=== PATIENT | male | born 1940 | race Caucasian/White ===

== ENCOUNTER 2017-01-04 11:15 | Outpatient (CLI) | payer BC | END 2017-01-04 11:16 | disposition home or self-care (01) | DX: R91.8 Other nonspecific abnormal finding of lung field (principal); J15.9 Unspecified bacterial pneumonia ==

== ENCOUNTER 2017-01-18 10:24 | Outpatient (CLI) | payer BC | END 2017-01-18 10:25 | disposition home or self-care (01) | DX: J18.9 Pneumonia, unspecified organism (principal) ==

== ENCOUNTER 2017-09-02 12:15 | Outpatient (CLI) | payer BC ==
--- NOTE | 2017-09-02 13:07 | XRAY Report ---
TWO-VIEW CHEST: 09/02/2017 CLINICAL INDICATION: Pneumonia. COMPARISON: 01/18/2017 FINDINGS: Frontal and lateral views of the chest demonstrate a normal cardiac silhouette. The lungs remain clear. No effusion or pneumothorax is present. IMPRESSION: NORMAL CHEST. JOB #: [id number] EXT JOB #:[id number]
== END 2017-09-02 12:16 | disposition home or self-care (01) ==
LOC: DI 12:15
PROVIDERS: ATTEND Family Medicine
DX: J18.9 Pneumonia, unspecified organism (principal); B96.89 Other specified bacterial agents as the cause of diseases classified elsewhere
CPT/HCPCS: 71020

== ENCOUNTER 2018-01-15 10:08 | Outpatient (CLI) | payer BC ==
[2018-01-15 17:35] LABS: HGB - HEMOGLOBIN 14.8 g/dL (14.0-18.0); MEAN CORPUSCULAR HEMOGLOBIN 31.1 pg (27.0-31.0); MEAN CORPUSCULAR HGB CONC 33.4 g/dL (32.0-36.0); MEAN CORPUSCULAR VOLUME 93.1 fL (80.0-94.0); MEAN PLATELET VOLUME 9.1 fL (7.4-11.4); RED BLOOD COUNT 4.75 10^6/uL (4.70-6.10); RED CELL DISTRIBUTION WIDTH 13.2 % (12.0-15.0)
[2018-01-15 17:57] LABS: ALBUMIN 4.1 g/dL (3.2-5.5); ALBUMIN/GLOBULIN RATIO 1.5 (1.0-2.2); ALKALINE PHOSPHATASE 65 IU/L (42-121); ALT ALANINE AMINOTRANSFERASE 20 IU/L (10-60); AST ASPARTATE AMINOTRANSFERASE 22 IU/L (10-42); BILIRUBIN,TOTAL 0.8 mg/dL (0.2-1.0); BUN - BLOOD UREA NITROGEN 26 mg/dL (6-20); CALCIUM 8.7 mg/dL (8.5-10.3); CARBON DIOXIDE - CO2 28 mmol/L (21-32); CHLORIDE 104 mmol/L (101-111); CHOL/HDL RATIO 4.9 (<5.0); CHOLESTEROL 171 mg/dL; CREATININE 0.8 mg/dL (0.6-1.2); GFR - MDRD 94 (>89); GLUCOSE 113 mg/dL (70-100); HDL CHOLESTEROL 35 mg/dL; LDL CHOLESTEROL,CALCULATED 125 mg/dL; LDL/HDL RATIO 3.6 (<3.6); SODIUM 139 mmol/L (135-145); TOTAL PROTEIN 6.9 g/dL (6.7-8.2); VLDL CHOLESTEROL 11 mg/dL
== END 2018-01-15 10:09 | disposition home or self-care (01) ==
LOC: LAB.F 10:08
PROVIDERS: ATTEND Family Medicine
DX: E78.2 Mixed hyperlipidemia (principal); I10 Essential (primary) hypertension; E03.9 Hypothyroidism, unspecified; Z79.899 Other long term (current) drug therapy
CPT/HCPCS: 36415; 80053; 80061; 83721; 84443

== ENCOUNTER 2018-07-01 13:03 | Outpatient (CLI) | payer BC ==
[2018-07-01 14:30] LABS: BASOPHILS # (AUTO) 0.1 10^3/uL (0.0-0.1); BASOPHILS % (AUTO) 0.8 %; EOSINOPHILS # (AUTO) 0.1 10^3/uL (0.0-0.7); HGB - HEMOGLOBIN 15.4 g/dL (14.0-18.0); LYMPHOCYTES # (AUTO) 1.2 10^3/uL (1.5-3.5); LYMPHOCYTES % (AUTO) 19.8 %; MEAN CORPUSCULAR HEMOGLOBIN 32.2 pg (27.0-31.0); MEAN CORPUSCULAR VOLUME 94.8 fL (80.0-94.0); MEAN PLATELET VOLUME 8.8 fL (7.4-11.4); MONOCYTES # (AUTO) 0.5 10^3/uL (0.0-1.0); MONOCYTES % (AUTO) 7.4 %; NEUTROPHILS # (AUTO) 4.4 10^3/uL (1.5-6.6); PLT - PLATELET COUNT 188 10^3/uL (130-450); RED BLOOD COUNT 4.77 10^6/uL (4.70-6.10); RED CELL DISTRIBUTION WIDTH 13.2 % (12.0-15.0); WHITE BLOOD COUNT 6.2 x10^3/uL (4.8-10.8)
[2018-07-01 14:39] LABS: CREATININE 0.8 mg/dL (0.6-1.2)
[2018-07-02 13:51] LABS: HEPATITIS C ANTIBODY NON-REACTIVE (NON-REACTIVE)
== END 2018-07-01 13:04 | disposition home or self-care (01) ==
LOC: LAB 13:03
PROVIDERS: ATTEND Physician Assistant Medical
DX: L20.84 Intrinsic (allergic) eczema (principal); Z79.899 Other long term (current) drug therapy
CPT/HCPCS: 36415; 81599; 82565; 84450; 84460; 84520; 85025; 86480; 86803

== ENCOUNTER 2018-07-16 11:33 | Outpatient (CLI) | payer BC ==
--- NOTE | 2018-07-16 17:12 | XRAY Report ---
Reason: LT ANKLE PAIN Procedure Date: 07/16/2018 Accession Number: [id number] / [id number] Procedure: XR - Ankle 3 View LT CPT Code: FULL RESULT: EXAMS: LEFT FOOT AND ANKLE RADIOGRAPHY EXAM DATE: 07/16/2018 11:55 AM. CLINICAL HISTORY: Left ankle pain. COMPARISON: Foot 3 views, left 07/16/2018 11:49 AM. TECHNIQUE: 3 views each foot and ankle. FINDINGS: Bones: Normal. No fractures or bone lesions in the foot or ankle. Joints: There are destructive changes of the distal end of the first proximal phalanx involving the first interphalangeal joint. The ankle mortise is symmetric. Soft Tissues: There is soft tissue swelling over the first interphalangeal joint. Soft tissue swelling is also seen to a lesser degree in the region of the fifth metatarsophalangeal joint, as well as the first metatarsophalangeal joint. There is also questionable periarticular lucency in the distal first metatarsal near the first metatarsophalangeal joint. IMPRESSION: Imaging findings are compatible with the suspected clinical history of gout with predominant involvement of the first interphalangeal joint of the left foot. RADIA
--- NOTE | 2018-07-16 17:13 | XRAY Report ---
Reason: LT FOOT PAIN Procedure Date: 07/16/2018 Accession Number: [id number] / [id number] Procedure: XR - Foot 3 View LT CPT Code: FULL RESULT: EXAMS: LEFT FOOT AND ANKLE RADIOGRAPHY EXAM DATE: 07/16/2018 11:55 AM. CLINICAL HISTORY: Left ankle pain. COMPARISON: Foot 3 views, left 07/16/2018 11:49 AM. TECHNIQUE: 3 views each foot and ankle. FINDINGS: Bones: Normal. No fractures or bone lesions in the foot or ankle. Joints: There are destructive changes of the distal end of the first proximal phalanx involving the first interphalangeal joint. The ankle mortise is symmetric. Soft Tissues: There is soft tissue swelling over the first interphalangeal joint. Soft tissue swelling is also seen to a lesser degree in the region of the fifth metatarsophalangeal joint, as well as the first metatarsophalangeal joint. There is also questionable periarticular lucency in the distal first metatarsal near the first metatarsophalangeal joint. IMPRESSION: Imaging findings are compatible with the suspected clinical history of gout with predominant involvement of the first interphalangeal joint of the left foot. RADIA
== END 2018-07-16 11:34 | disposition home or self-care (01) ==
LOC: DI 11:33
PROVIDERS: ATTEND Family Medicine
DX: M79.672 Pain in left foot (principal); M25.572 Pain in left ankle and joints of left foot

== ENCOUNTER 2018-08-12 11:09 | Outpatient (CLI) | payer BC ==
[2018-08-12 18:23] LABS: CHOL/HDL RATIO 5.3 (<5.0); CHOLESTEROL 127 mg/dL; HDL CHOLESTEROL 24 mg/dL; LDL CHOLESTEROL,CALCULATED 88 mg/dL; LDL/HDL RATIO 3.7 (<3.6); VLDL CHOLESTEROL 15 mg/dL
== END 2018-08-12 11:10 | disposition home or self-care (01) ==
LOC: LAB.F 11:09
PROVIDERS: ATTEND Family Medicine
DX: I10 Essential (primary) hypertension (principal); E03.9 Hypothyroidism, unspecified; Z79.899 Other long term (current) drug therapy
CPT/HCPCS: 36415; 80061; 83721

== ENCOUNTER 2018-09-01 10:05 | Observation (INO) | payer BC ==
--- NOTE | 2018-09-01 10:42 | ED Physician Documentation ---
History of Present Illness - Stated complaint Stated Complaint: DIZZY - Chief complaint Chief Complaint: Cardiac - Additonal information Additional information: hx from pt 78 m 2 wk s/p stent at [facility] also has a bad valve (he does not know more detail) on BB [facility] incline 2% today after treadmill he had mild chest discomfort soa sweats nausea and felt faint brought over to ER feels better at rest on asa plavix among others Review of Systems Constitutional: reports: Sweats. denies: Fever Cardiac: reports: Chest pain / pressure Respiratory: reports: Dyspnea GI: reports: Nausea Neurologic: reports: Generalized weakness, Near syncope Immunocompromised: denies: Immunocompromised PD PAST MEDICAL HISTORY - Past Medical History Cardiovascular: Hypertension, High cholesterol, Other Respiratory: Asthma, Sleep apnea Endocrine/Autoimmune: HyPOthyroidism GI: GERD - Past Surgical History Past Surgical History: Yes HEENT: Tonsil/Adenoidectomy - Present Medications Home Medications: Ambulatory Orders Medication Instructions Recorded Confirmed Cyclobenzaprine HCl 10 mg PO DAILY 12/18/13 12/11/14 Fluticasone Furoate [Veramyst] 10 gm NS DAILY 12/18/13 12/11/14 Furosemide [Lasix] 20 mg PO DAILY 12/18/13 12/11/14 Ipratropium [Atrovent] 0.2 mg INH ONCE 12/18/13 12/11/14 Lansoprazole 30 mg PO DAILY 12/18/13 12/11/14 Levocetirizine Dihydrochloride 5 mg PO DAILY 12/18/13 12/11/14 Levothyroxine Sodium [Synthroid] 50 mcg PO DAILY 12/18/13 12/11/14 Losartan/Hydrochlorothiazide 1 each PO DAILY 12/18/13 12/11/14 [Losartan-Hctz 50-12.5 mg Tab] Meloxicam [Mobic] 7.5 mg PO DAILY 12/18/13 12/11/14 Calcium Carbonate/Vitamin D3 1 tab PO DAILY 12/11/14 12/11/14 [Calcium 500 + D Tablet] Cholecalciferol (Vitamin D3) 2,000 mg PO DAILY 12/11/14 12/11/14 [Vitamin D] Gluc HCl/Csa/Collagen/Hyalur A 500 mg PO DAILY 12/11/14 12/11/14 [Glucosamine Chondroitin Cap] Hydrocodone/Acetaminophen 1 - 2 each PO Q6H PRN #15 tablet 12/11/14 [Hydrocodon-Acetaminophen 5-325] Losartan [Cozaar] 50 mg PO DAILY 12/11/14 12/11/14 Melatonin 3 mg PO DAILY 12/11/14 12/11/14 diphenhydrAMINE [Benadryl] 25 mg PO DAILY 12/11/14 12/11/14 - Allergies Allergies/Adverse Reactions: Allergies Allergy/AdvReac Type Severity Reaction Status Date / Time Sulfa (Sulfonamide Allergy Unknown Verified 12/18/13 10:56 Antibiotics) - Social History Does the pt smoke?: No Smoking Status: Never smoker Does the pt have substance abuse?: No - Immunizations Immunizations are current?: Yes - POLST Patient has POLST: Yes PD ED PE NORMAL - Vitals Vital signs reviewed: Yes - Neck Neck: Supple, no meningeal sign - Cardiac Cardiac: RRR - Respiratory Respiratory: No respiratory distress, Clear bilaterally - Abdomen Abdomen: Soft, Non tender - Derm Derm: Normal color - Extremities Extremities: Other (mild symm edema) Results - Vitals Vitals: Vital Signs - 24 hr 09/01/18 09/01/18 10:21 12:21 Heart Rate 44 L 47 L Respiratory 18 17 Rate Blood Pressure 115/58 L 102/54 L O2 Saturation 95 95 Oxygen O2 Source Room air - EKG (time done) 1033 Rate: Rate (enter#) (44) Rhythm: Sinus bradycardia Ischemia: T wave inversion (III AVF V6) - Labs Labs: Laboratory Tests 09/01/18 09/01/18 09/01/18 10:50 10:50 10:50 WBC 6.9 RBC 4.44 L Hgb 14.2 Hct 41.2 L MCV 92.6 MCH 32.0 H MCHC 34.6 RDW 12.8 Plt Count 168 MPV 8.8 Neut # (Auto) 5.4 Lymph # (Auto) 0.9 L [place] # (Auto) 0.5 Eos # (Auto) 0.1 Baso # (Auto) 0.0 Absolute Nucleated RBC 0.00 Nucleated RBC % 0.0 Sodium 135 Potassium 3.8 Chloride 99 L Carbon Dioxide 28 Anion Gap 8.0 BUN 25 H Creatinine 0.9 Estimated GFR (MDRD) 82 L Glucose 98 Calcium 8.5 Troponin I < 0.04 - Rads (name of study) CXR Radiology: See rad report (NACPD) PD MEDICAL DECISION MAKING - ED course ED course: exertional CP SOA diaphoresis nausea 2 wk s/p stent and also very whit on BB no block will speak to cardio at [facility] pt will need either admit or transfer d/w Dr Mendez stent was obtuse marginal 50% LAD without ischemia not stented echo showed EF 45% hypokinesia lateral wall mildly dilated aorta no valve problems inv T inf and V56 he rec admit for rate and serial enzymes stress called hospitalist at [address] in obs Departure - Departure Disposition: ED Place in Observation Clinical Impression: Near syncope, Bradycardia Chest pain Qualifiers: Chest pain type: unspecified Qualified Code(s): R07.9 - Chest pain, unspecified
[2018-09-01 11:01] LABS: BASOPHILS % (AUTO) 0.5 %; EOSINOPHILS # (AUTO) 0.1 10^3/uL (0.0-0.7); EOSINOPHILS % (AUTO) 1.8 %; HGB - HEMOGLOBIN 14.2 g/dL (14.0-18.0); LYMPHOCYTES # (AUTO) 0.9 10^3/uL (1.5-3.5); LYMPHOCYTES % (AUTO) 12.9 %; MEAN CORPUSCULAR HGB CONC 34.6 g/dL (32.0-36.0); MEAN CORPUSCULAR VOLUME 92.6 fL (80.0-94.0); MEAN PLATELET VOLUME 8.8 fL (7.4-11.4); MONOCYTES # (AUTO) 0.5 10^3/uL (0.0-1.0); NEUTROPHILS # (AUTO) 5.4 10^3/uL (1.5-6.6); NEUTROPHILS % (AUTO) 77.8 %; PLT - PLATELET COUNT 168 10^3/uL (130-450); RED BLOOD COUNT 4.44 10^6/uL (4.70-6.10); RED CELL DISTRIBUTION WIDTH 12.8 % (12.0-15.0); WHITE BLOOD COUNT 6.9 x10^3/uL (4.8-10.8)
[2018-09-01 11:08] LABS: CALCIUM 8.5 mg/dL (8.5-10.3); CREATININE 0.9 mg/dL (0.6-1.2)
--- NOTE | 2018-09-01 11:46 | XRAY Report ---
Reason: chest pain Procedure Date: 09/01/2018 Accession Number: [id number] / [id number] Procedure: XR - Chest 1 View X-Ray CPT Code: 51249 FULL RESULT: EXAM: CHEST RADIOGRAPHY EXAM DATE: 09/01/2018 10:57 AM. CLINICAL HISTORY: Chest pain. COMPARISON: 09/02/2017. TECHNIQUE: 1 view. FINDINGS: Lungs/Pleura: No focal opacities evident. No pleural effusion. No pneumothorax. Chronic elevated right hemidiaphragm. Mediastinum: Cardiomegaly, ectatic aorta Other: None. IMPRESSION: No active cardiopulmonary disease RADIA
[2018-09-01] MEDS ORDERED: MORPHINE 2 MG/ML CARPUJECT IVP PRN (12:36)
[2018-09-01] MEDS ORDERED: ONDANSETRON 4 MG/2 ML VIAL IVP PRN (12:36)
[2018-09-01] MEDS ORDERED: SODIUM CHLORIDE FLUSH 0.9% 10 ML SYRINGE IVP PRN (12:36)
[2018-09-01] MEDS ORDERED: ACETAMINOPHEN 325 MG TABLET PO PRN (12:36)
[2018-09-01] MEDS ORDERED: IPRATROPIUM 0.2 MG/ML NEB INH SCH (13:00)
[2018-09-01 13:23] LABS: ALBUMIN 3.9 g/dL (3.2-5.5); BILIRUBIN,DIRECT 0.1 mg/dL (0.1-0.5); BILIRUBIN,TOTAL 0.9 mg/dL (0.2-1.0); TOTAL PROTEIN 6.9 g/dL (6.7-8.2)
[2018-09-01] MEDS ORDERED: HYDROcod/ACETAM 5/325 MG TABLET PO PRN (13:24)
[2018-09-01] MEDS ORDERED: IPRATROPIUM 0.2 MG/ML NEB INH PRN (16:56)
[2018-09-01] MEDS ORDERED: NITROGLYCERIN SL 0.4 MG TABLET SL PRN (17:26)
[2018-09-01] MEDS ORDERED: ACETAMINOPHEN/CODEINE 300 MG/30 MG TABLET PO PRN (17:26)
--- NOTE | 2018-09-01 19:37 | HISTORY & PHYSICAL EXAMINATION ---
DATE OF SERVICE: 09/01/2018 Physician: Linda Curtis MD HISTORY OF PRESENT ILLNESS: This is a 78-year-old white male with a history of obesity, he uses 2 inhalers for "snoring at night," has a history of hypertension, valvular heart disease (details unknown), elevated cholesterol, hypothyroidism, GERD. The patient suffered an MA 3 weeks ago while he was camping and hiking, had delayed presentation for many hours until his insisted that he go to the ER, and he was taken to [facility] for an angiogram, where he stayed and had management. He was discharged on new Atorvastatin, aspirin and Plavix, and Toprol 50 mg daily. The patient had stenting of his Obtuse Marginal coronary artery, and angiography did reveal residual 50% blockage in the LAD artery. They did do FFR to determine that it did not need to be stented, as it was not a physiologically significant lesion. The patient started cardiac rehabilitation 1 week ago. He has had 4 sessions. Today while at cardiac rehabilitation, he had a resting heart rate of 43, did start exercisen and had no trouble; however, after doing one of the exercises, the cardiac rehab nurse noted that he was "pale as a ghost" and that his blood pressure had dropped, and heart rate had been 40s and only rigoberto into the 70s. He was taken to the emergency room for admission. There had been no chest pain like the time of his MA 3 weeks ago. His only symptom was nausea, and he denied shortness of breath. He has been compliant with all his medications since the MA. He has not had any syncope, but thinks there may be mild lethargy since his MA and new meds. MEDICATIONS 1. Triamcinolone cream. 2. Paton-3 soft gel. 3. Multivitamin daily. 4. Tylenol with Codeine p.r.n. 5. Sublingual nitroglycerin p.r.n. 6. Metoprolol succinate 50 mg daily. 7. Melatonin 3 mg every night. 8. Losartan/HCTZ 50/12.5 mg daily. 9. Levothyroxine 100 mcg daily. 10. Glucosamine chondroitin daily redeveloped p.r.n. 11. Veramyst nasal spray daily. 12. Baby aspirin daily. 13. Plavix 75 mg daily. 14. Lipitor 80 mg night. ALLERGIES: SULFA. FAMILY HISTORY: Noncontributory. SOCIAL HISTORY: The patient is a nonsmoker who never smoked, drinks very rare alcohol, uses no illicit drugs. REVIEW OF SYSTEMS: Comprehensive review of systems was performed and the pertinent positives are in the HPI, the rest are negative. PHYSICAL EXAMINATION GENERAL: Obese white male. He is in no distress, sitting in a chair. VITAL SIGNS: Blood pressure 102/54, pulse 47 in sinus rhythm, afebrile, room air saturation 97%. HEENT: Unremarkable. He has a long medina. NECK: Without JVD or carotid bruits. LUNGS: Clear. HEART: Heart sounds normal. No murmur. ABDOMEN: Obese. I cannot rule out organomegaly. Normal bowel sounds. No tenderness. EXTREMITIES: No edema, clubbing or cyanosis. NEUROLOGIC: Intact. LABORATORIES: Normal electrolytes, BUN 25, creatinine 0.9, magnesium 1.9. Liver tests normal. Troponin not detectable. TSH normal at 3.0. CBC unremarkable. No INR was done. No urinalysis was done. Chest x-ray: No active pulmonary disease. DIAGNOSTIC STUDIES: EKG: sinus bradycardia at a rate of 44, left IVCD, early RS transition in V2 consistent with a posterior MA, and inverted T-wave in V6 only. There is no old EKG for comparison. IMPRESSION/DIAGNOSIS: 1. Bradycardia and abnormal blood pressure response to exercise during cardiac rehabilitation - this could be a coronary ischemia equivalent or due to his B=damion dose. 2. Coronary artery disease. 3. Recent myocardial infarction with stenting. 4. History of hypertension. 5. History of elevated cholesterol. 6. Hypothyroidism. 7. Obesity. PLAN: Place the patient in Observation status on telemetry. Stop his metoprolol to allow the heart rate to increase slowly and metoprolol to wash out. Continue with his aspirin, Plavix, Lipitor (new medications post-MA), continue with blood pressure control, but hold the meds for blood pressures that are near 100, as the Losartan/HCTZ combination pill is causing mild prerenal azotemia. Cycle troponins x3. Proceed to a stress test off beta damion or on a lower dose, to determine proper beta damion dose. The emergency room physician had reached out to this patient's [employer], got the covering doctor today, who reviewed with our ER doctor what the angiogram results were and advised place in Observation status with troponin checks and proceeding to a stress test. The patient and were told of the plan of his [employer]'s partner, and he is agreeable. CODE STATUS: FULL CODE. DEEP VENOUS THROMBOSIS PROPHYLAXIS: SCDs. ATTESTATION: The patient is expected to be discharged or transferred to another facility within 96 hours: Yes. TD: 09/01/2018 19:10 [facility]
[2018-09-01] MEDS: SODIUM CHLORIDE FLUSH 0.9% 10 ML SYRINGE IVP SCH ×2 (20:06→23:45)
[2018-09-01] MEDS: ATORVASTATIN 40 MG TABLET PO SCH (20:06)
[2018-09-01] MEDS: GABAPENTIN 300 MG CAPSULE PO SCH (20:07)
[2018-09-01] MEDS: FAMOTIDINE 20 MG TABLET PO SCH (20:07)
[2018-09-01] MEDS ORDERED: MELATONIN 3 MG PO PRN (21:00)
[2018-09-02 06:03] LABS: BUN - BLOOD UREA NITROGEN 20 mg/dL (6-20); CALCIUM 8.8 mg/dL (8.5-10.3); CARBON DIOXIDE - CO2 30 mmol/L (21-32); CHLORIDE 102 mmol/L (101-111); CHOL/HDL RATIO 3.3 (<5.0); CHOLESTEROL 100 mg/dL; GFR - MDRD 73 (>89); GLUCOSE 99 mg/dL (70-100); HDL CHOLESTEROL 30 mg/dL; LDL CHOLESTEROL,CALCULATED 56 mg/dL; LDL/HDL RATIO 1.9 (<3.6); SODIUM 137 mmol/L (135-145); VLDL CHOLESTEROL 14 mg/dL
[2018-09-02] MEDS: PANTOPRAZOLE 40 MG TABLET PO SCH (06:03)
[2018-09-02] MEDS: ENOXAPARIN 40 MG/0.4 ML SYRINGE SUBQ SCH (08:21)
[2018-09-02] MEDS: FLUTICASONE NASAL SPRAY NAS SCH (08:21)
[2018-09-02] MEDS: LOSARTAN 50 MG TABLET PO SCH (08:22)
[2018-09-02] MEDS: CYCLOBENZAPRINE 10 MG TABLET PO SCH (08:22)
[2018-09-02] MEDS: GABAPENTIN 300 MG CAPSULE PO SCH ×5 (08:22→20:37)
[2018-09-02] MEDS: ASPIRIN EC 81 MG TABLET PO SCH (08:22)
[2018-09-02] MEDS: POLYETHYLENE GLYCOL 3350 17 GM PACKET PO SCH (08:23)
[2018-09-02] MEDS: FUROSEMIDE 20 MG TABLET PO SCH (08:23)
[2018-09-02] MEDS: LEVOTHYROXINE 100 MCG TABLET PO SCH (08:23)
[2018-09-02] MEDS: CETIRIZINE 10 MG TABLET PO SCH (08:23)
[2018-09-02] MEDS: CLOPIDOGREL 75 MG TABLET PO SCH (08:23)
[2018-09-02] MEDS: FAMOTIDINE 20 MG TABLET PO SCH ×2 (08:23→20:37)
[2018-09-02] MEDS: SODIUM CHLORIDE FLUSH 0.9% 10 ML SYRINGE IVP SCH ×2 (08:23→17:50)
--- NOTE | 2018-09-02 14:11 | Nuclear Medicine Report ---
Reason: CAD, Whit at Rehab Procedure Date: 09/02/2018 Accession Number: [id number] / [id number] Procedure: NM - Myocardial Perfusion STR/RST CPT Code: FULL RESULT: EXAM: SINGLE-ISOTOPE EXERCISE STRESS TEST. SINGLE-ISOTOPE AND ONE-DAY REST/STRESS MYOCARDIAL PERFUSION SCANS WITH TOMOGRAPHIC IMAGING, QUANTITATIVE ANALYSIS, WALL MOTION ANALYSIS AND CALCULATION OF EJECTION FRACTION. EXAM DATE: 09/02/2018 01:27 PM. CLINICAL HISTORY: CAD, whit at rehab. COMPARISON: None. TECHNIQUE: A rest myocardial perfusion scan was done with tomography after the intravenous administration of 10.7 mCi Tc-99m sestamibi. After an appropriate delay, a treadmill exercise stress was performed according to department protocol. The patient exercised for 8 minutes and 31 seconds. The maximum heart rate was 110 bpm, which was 76% of the maximum predicted heart rate of 144 bpm. At approximately peak heart rate, 42 mCi of Tc-99m sestamibi was injected for stress myocardial perfusion scan. Motion correction was applied when appropriate. Gated tomographic images were obtained for wall motion analysis and computation of left ventricular ejection fraction. FINDINGS: There is a large, severe perfusion defect involving the lateral segment from apex to base, which is only partially reversible. The findings are suggestive of a lateral wall infarct with reversible ischemia of the residual tissue. There is moderate cardiac chamber enlargement which does not alter with exercise. No other convincing perfusion abnormalities. No convincing evidence of transient ischemic dilatation. There is normal cardiac wall motion. Cardiac ejection fraction is 63%. IMPRESSION: 1. 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 2. Normal left ventricular ejection fraction of 63%. 3. Normal segmental and global wall motion. 4. Moderate cardiac chamber enlargement that does not vary with stress. MARIA ANTONIA The call report notification system was initiated by Dr. Abdiaziz Velez at 14:06 hrs on 09/02/18. The above findings were discussed with Dr. Schmidt by Dr. Abdiaziz Velez at 14:09 hrs on 09/02/18.
--- NOTE | 2018-09-02 14:25 | PROCEDURE REPORT ---
Hospitalist Procedure Note - Procedure Note Procedure Note: Patient underwent a treadmill cardiac stress test Patient was previously on a beta-damion and resting heart rate was 50. The patient was able to get to a maximum heart rate of 98 at which point he could no longer tolerate the treadmill. He did not reach the desired maximum heart rate. During the stress test the patient had no ST changes. The patient did have frequent PVCs but no other abnormalities were noted. The patient had no chest pain or other symptoms during the stress test. Overall this was a negative study and we will be awaiting the results of the nuclear stress test to confirm.
--- NOTE | 2018-09-02 15:26 | PROVIDER PROGRESS NOTE ---
Assessment/Plan - Problem List (1) Bradycardia Assessment/Plan: Patient presented to the emergency department after having hypotension, bradycardia with near syncope while doing cardiac rehab. The patient was placed in observation for serial troponins. Patient's metoprolol was held and patient placed on telemetry for monitoring of bradycardia. Patient's troponins are negative Patient underwent treadmill stress test with which patient did not have any acute changes in EKG. 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 I spoke with cardiology at [facility] in [place] Dr. Pena and he stated that these changes are expected with a stress test and that there was no need to perform the stress test at this time. Dr. Pena recommended monitoring the patient for 1 more night on telemetry. He recommended holding the patient's metoprolol and hydrochlorothiazide which have already been held. He states that the patient does not need to be discharged on metoprolol. He would recommend discharging the patient on aspirin, Plavix and Cozaar. He states as long as the patient does not have any arrhythmia or further symptoms he may be discharged tomorrow morning. (2) History of coronary artery disease Assessment/Plan: Patient has a history of [place] 3 weeks ago and underwent coronary artery stenting of the obtuse marginal artery. Patient also had 50% stenosis of his LAD. Patient underwent serial troponins, telemetry monitoring and stress test overnight in observation. Patient continues to be bradycardic, troponins were negative and stress test showed changes consistent with recent [place]. Plan: Continue aspirin, Plavix and losartan. Hold metoprolol and hydrochlorothiazide. (3) Hypertension Qualifiers: Hypertension type: essential hypertension Qualified Code(s): I10 - Essential (primary) hypertension Assessment/Plan: The patient was hypotensive prior to presentation while exercising. This is likely secondary to overmedication with hydrochlorothiazide metoprolol and losartan. The patient's hydrochlorothiazide and metoprolol have been held. Patient's blood pressure is in the normal range. We will continue the patient's losartan and monitor blood pressure while he is hospitalized. (4) Hypothyroidism Qualifiers: Hypothyroidism type: unspecified Qualified Code(s): E03.9 - Hypothyroidism, unspecified Assessment/Plan: Patient has a history of hypothyroidism we will continue the patient's Synthroid while the patient is hospitalized. - Current Meds Current Meds: Current Medications Generic Name Dose Route Start Last Admin Trade Name Jayden PRN Reason Stop Dose Admin Aspirin 81 mg 09/02/18 09:00 09/02/18 08:22 Ecotrin PO 81 mg DAILY MIGUEL Administration Atorvastatin Calcium 80 mg 09/01/18 21:00 09/01/18 20:06 Lipitor PO 80 mg QPM MIGUEL Administration Cetirizine HCl 10 mg 09/02/18 09:00 09/02/18 08:23 Zyrtec PO 10 mg DAILY MIGUEL Administration Clopidogrel Bisulfate 75 mg 09/02/18 09:00 09/02/18 08:23 Plavix PO 75 mg DAILY MIGUEL Administration Cyclobenzaprine HCl 10 mg 09/02/18 09:00 09/02/18 08:22 Flexeril PO 10 mg DAILY MIGUEL Administration Enoxaparin Sodium 40 mg 09/02/18 09:00 09/02/18 08:21 Lovenox SUBQ 40 mg DAILY MIGUEL Administration Famotidine 20 mg 09/01/18 21:00 09/02/18 08:23 Pepcid PO 20 mg BID MIGUEL Administration Fluticasone Propionate 1 sprays 09/02/18 09:00 09/02/18 08:21 Flonase ALINE 1 spray DAILY MIGUEL Administration Furosemide 20 mg 09/02/18 09:00 09/02/18 08:23 Lasix PO 20 mg DAILY MIGUEL Administration Gabapentin 300 mg 09/01/18 21:00 09/02/18 14:10 Neurontin PO 300 mg QID MIGUEL Administration Levothyroxine Sodium 50 mcg 09/02/18 09:00 09/02/18 08:23 Synthroid PO 50 mcg DAILY MIGUEL Administration Losartan Potassium 50 mg 09/02/18 09:00 09/02/18 08:22 Cozaar PO 50 mg DAILY MIGUEL Administration Pantoprazole Sodium 40 mg 09/02/18 07:00 09/02/18 06:03 Protonix PO 40 mg QDAC MIGUEL Administration Polyethylene Glycol 17 gm 09/02/18 09:00 09/02/18 08:23 Miralax PO 17 gm DAILY MIGUEL Administration Sodium Chloride 10 ml 09/01/18 17:00 09/02/18 08:23 Normal Saline Flush 0.9% IVP 10 ml 0100,0900,1700 MIGUEL Administration - Lab Result Lab results reviewed: Yes Fish Bone Diagrams: 09/01/18 10:50 09/02/18 05:25 Other Lab Results: Laboratory Results WBC 6.9 x10^3/uL (4.8-10.8) 09/01/18 10:50 RBC 4.44 10^6/uL (4.70-6.10) L 09/01/18 10:50 Hgb 14.2 g/dL (14.0-18.0) 09/01/18 10:50 Hct 41.2 % (42.0-52.0) L 09/01/18 10:50 MCV 92.6 fL (80.0-94.0) 09/01/18 10:50 MCH 32.0 pg (27.0-31.0) H 09/01/18 10:50 MCHC 34.6 g/dL (32.0-36.0) 09/01/18 10:50 RDW 12.8 % (12.0-15.0) 09/01/18 10:50 Plt Count 168 10^3/uL (130-450) 09/01/18 10:50 MPV 8.8 fL (7.4-11.4) 09/01/18 10:50 Neut # (Auto) 5.4 10^3/uL (1.5-6.6) 09/01/18 10:50 Lymph # (Auto) 0.9 10^3/uL (1.5-3.5) L 09/01/18 10:50 [place]ayer # (Auto) 0.5 10^3/uL (0.0-1.0) 09/01/18 10:50 Eos # (Auto) 0.1 10^3/uL (0.0-0.7) 09/01/18 10:50 Baso # (Auto) 0.0 10^3/uL (0.0-0.1) 09/01/18 10:50 Absolute Nucleated RBC 0.00 x10^3/uL 09/01/18 10:50 Nucleated RBC % 0.0 /100WBC 09/01/18 10:50 Sodium 137 mmol/L (135-145) 09/02/18 05:25 Potassium 3.7 mmol/L (3.5-5.0) 09/02/18 05:25 Chloride 102 mmol/L (101-111) 09/02/18 05:25 Carbon Dioxide 30 mmol/L (21-32) 09/02/18 05:25 Anion Gap 5.0 (6-13) L 09/02/18 05:25 BUN 20 mg/dL (6-20) 09/02/18 05:25 Creatinine 1.0 mg/dL (0.6-1.2) 09/02/18 05:25 Estimated GFR (MDRD) 73 (>89) L 09/02/18 05:25 Glucose 99 mg/dL (70-100) 09/02/18 05:25 Calcium 8.8 mg/dL (8.5-10.3) 09/02/18 05:25 Magnesium 1.9 mg/dL (1.7-2.8) 09/01/18 10:50 Total Bilirubin 0.9 mg/dL (0.2-1.0) 09/01/18 10:50 Direct Bilirubin 0.1 mg/dL (0.1-0.5) 09/01/18 10:50 AST 27 IU/L (10-42) 09/01/18 10:50 ALT 23 IU/L (10-60) 09/01/18 10:50 Alkaline Phosphatase 71 IU/L (42-121) 09/01/18 10:50 Troponin I < 0.04 ng/mL (<0.49) 09/01/18 23:11 Total Protein 6.9 g/dL (6.7-8.2) 09/01/18 10:50 Albumin 3.9 g/dL (3.2-5.5) 09/01/18 10:50 Globulin 3.0 g/dL (2.1-4.2) 09/01/18 10:50 Triglycerides 69 mg/dL (-149) 09/02/18 05:25 Cholesterol 100 mg/dL (-199) 09/02/18 05:25 LDL Cholesterol, Calc 56 mg/dL (-129) 09/02/18 05:25 VLDL Cholesterol 14 mg/dL 09/02/18 05:25 HDL Cholesterol 30 mg/dL (60-) L 09/02/18 05:25 LDL/HDL Ratio 1.9 (<3.6) 09/02/18 05:25 Cholesterol/HDL Ratio 3.3 (<5.0) 09/02/18 05:25 TSH 3.01 uIU/mL (0.34-5.60) 09/01/18 10:50 - EKG Results EKG Interpreted Independently: Yes - Diagnostic Imaging Results Diagnostic Imaging Results: Final report reviewed - Additional Planning Condition/Complexity: Guarded My Orders: My Active Orders 09/02/18 09:00 Fluticasone [Flonase] 1 sprays ALINE DAILY 09/02/18 Dinner Cardiac Diet [DIET] Consult/Specialty: Cardiology Plan Discussed with:: Patient Time Spent: 31-60 minutes Subjective - Subjective Patient Reports: Feeling Better, No Complaints Nursing Reports: No Complaints Objective Vital Signs: Vital Signs - 24 hr 09/01/18 09/01/18 09/01/18 15:39 16:44 19:48 Temperature 36.4 C L 36.4 C L 36.6 C Heart Rate 43 L Heart Rate [ 43 L 46 L Brachial] Respiratory 18 18 18 Rate Blood Pressure 118/61 [Left Brachial artery] Blood Pressure 134/66 H [Right Brachial artery] O2 Saturation 94 94 93 09/02/18 09/02/18 09/02/18 00:06 05:00 07:58 Temperature 36.4 C L 36.5 C 36.9 C Heart Rate Heart Rate [ 50 L 48 L 49 L Brachial] Respiratory 16 20 16 Rate Blood Pressure 125/61 [Left Brachial artery] Blood Pressure 126/63 128/80 [Right Brachial artery] O2 Saturation 92 98 09/02/18 13:00 Temperature 36.8 C Heart Rate Heart Rate [ 55 L Brachial] Respiratory 16 Rate Blood Pressure [Left Brachial artery] Blood Pressure 108/56 L [Right Brachial artery] O2 Saturation 93 Oxygen O2 Source Room air I&O (Last 24 Hrs): Intake and Output Totals x24h 08/31/18 09/01/18 09/02/18 23:59 23:59 23:59 Intake Total 980 600 Balance 980 600 General: Alert, Oriented x3, Cooperative, No acute distress HEENT: Atraumatic, PERRLA, EOMI, Mucous membr. moist/pink Neck: Supple, No JVD, No thyromegaly, +2 carotid pulse wo bruit, No LAD Lymphatic: no adenopathy Neuro: Alert, Non Focal, CN 2-12 Grossly Intact, Oriented Times 3 Cardiovascular: Regular rate, Normal S1, Normal S2, No murmurs Respiratory: Chest non-tender, No respiratory distress, Breath sounds nml Abdomen: Normal bowel sounds, Soft, No tenderness, No hepatospenomegaly Extremities: No clubbing, No cyanosis, No edema, Normal pulses Skin: No rashes, No breakdown - Results Results: Laboratory Results WBC 6.9 x10^3/uL (4.8-10.8) 09/01/18 10:50 RBC 4.44 10^6/uL (4.70-6.10) L 09/01/18 10:50 Hgb 14.2 g/dL (14.0-18.0) 09/01/18 10:50 Hct 41.2 % (42.0-52.0) L 09/01/18 10:50 MCV 92.6 fL (80.0-94.0) 09/01/18 10:50 MCH 32.0 pg (27.0-31.0) H 09/01/18 10:50 MCHC 34.6 g/dL (32.0-36.0) 09/01/18 10:50 RDW 12.8 % (12.0-15.0) 09/01/18 10:50 Plt Count 168 10^3/uL (130-450) 09/01/18 10:50 MPV 8.8 fL (7.4-11.4) 09/01/18 10:50 Neut # (Auto) 5.4 10^3/uL (1.5-6.6) 09/01/18 10:50 Lymph # (Auto) 0.9 10^3/uL (1.5-3.5) L 09/01/18 10:50 Thayer # (Auto) 0.5 10^3/uL (0.0-1.0) 09/01/18 10:50 Eos # (Auto) 0.1 10^3/uL (0.0-0.7) 09/01/18 10:50 Baso # (Auto) 0.0 10^3/uL (0.0-0.1) 09/01/18 10:50 Absolute Nucleated RBC 0.00 x10^3/uL 09/01/18 10:50 Nucleated RBC % 0.0 /100WBC 09/01/18 10:50 Sodium 137 mmol/L (135-145) 09/02/18 05:25 Potassium 3.7 mmol/L (3.5-5.0) 09/02/18 05:25 Chloride 102 mmol/L (101-111) 09/02/18 05:25 Carbon Dioxide 30 mmol/L (21-32) 09/02/18 05:25 Anion Gap 5.0 (6-13) L 09/02/18 05:25 BUN 20 mg/dL (6-20) 09/02/18 05:25 Creatinine 1.0 mg/dL (0.6-1.2) 09/02/18 05:25 Estimated GFR (MDRD) 73 (>89) L 09/02/18 05:25 Glucose 99 mg/dL (70-100) 09/02/18 05:25 Calcium 8.8 mg/dL (8.5-10.3) 09/02/18 05:25 Magnesium 1.9 mg/dL (1.7-2.8) 09/01/18 10:50 Total Bilirubin 0.9 mg/dL (0.2-1.0) 09/01/18 10:50 Direct Bilirubin 0.1 mg/dL (0.1-0.5) 09/01/18 10:50 AST 27 IU/L (10-42) 09/01/18 10:50 ALT 23 IU/L (10-60) 09/01/18 10:50 Alkaline Phosphatase 71 IU/L (42-121) 09/01/18 10:50 Troponin I < 0.04 ng/mL (<0.49) 09/01/18 23:11 Total Protein 6.9 g/dL (6.7-8.2) 09/01/18 10:50 Albumin 3.9 g/dL (3.2-5.5) 09/01/18 10:50 Globulin 3.0 g/dL (2.1-4.2) 09/01/18 10:50 Triglycerides 69 mg/dL (-149) 09/02/18 05:25 Cholesterol 100 mg/dL (-199) 09/02/18 05:25 LDL Cholesterol, Calc 56 mg/dL (-129) 09/02/18 05:25 VLDL Cholesterol 14 mg/dL 09/02/18 05:25 HDL Cholesterol 30 mg/dL (60-) L 09/02/18 05:25 LDL/HDL Ratio 1.9 (<3.6) 09/02/18 05:25 Cholesterol/HDL Ratio 3.3 (<5.0) 09/02/18 05:25 TSH 3.01 uIU/mL (0.34-5.60) 09/01/18 10:50 ABX Reporting Has patient been on IV antibiotics over the past 48 hours?: No Current Medications - Current Medications Current Medications: Active Medications Acetaminophen (Tylenol) 650 mg PO Q4HR PRN PRN Reason: Pain 1 to 4 Acetaminophen/Codeine Phosphate (Tylenol #3) 1 tab PO Q6H PRN PRN Reason: PAIN Hydrocodone Bitart/Acetaminophen ([place] 5/325) 1 tab PO Q6H PRN PRN Reason: PAIN Aspirin (Ecotrin) 81 mg PO DAILY [facility] Last Admin: 09/02/18 08:22 Dose: 81 mg Atorvastatin Calcium (Lipitor) 80 mg PO QPM [facility] Last Admin: 09/01/18 20:06 Dose: 80 mg Cetirizine HCl (Zyrtec) 10 mg PO DAILY [facility] Last Admin: 09/02/18 08:23 Dose: 10 mg Clopidogrel Bisulfate (Plavix) 75 mg PO DAILY [facility] Last Admin: 09/02/18 08:23 Dose: 75 mg Cyclobenzaprine HCl (Flexeril) 10 mg PO DAILY [facility] Last Admin: 09/02/18 08:22 Dose: 10 mg Enoxaparin Sodium (Lovenox) 40 mg SUBQ DAILY [facility] Last Admin: 09/02/18 08:21 Dose: 40 mg Famotidine (Pepcid) 20 mg PO BID [facility] Last Admin: 09/02/18 08:23 Dose: 20 mg Fluticasone Propionate (Flonase) 1 sprays ALINE DAILY [facility] Last Admin: 09/02/18 08:21 Dose: 1 spray Furosemide (Lasix) 20 mg PO DAILY [facility] Last Admin: 09/02/18 08:23 Dose: 20 mg Gabapentin (Neurontin) 300 mg PO QID [facility] Last Admin: 09/02/18 14:10 Dose: 300 mg Ipratropium [place] (Atrovent) 0.5 mg INH RTQ6H PRN PRN Reason: Snoring or SOA Levothyroxine Sodium (Synthroid) 50 mcg PO DAILY [facility] Last Admin: 09/02/18 08:23 Dose: 50 mcg Losartan Potassium (Cozaar) 50 mg PO DAILY [facility] Last Admin: 09/02/18 08:22 Dose: 50 mg Morphine Sulfate (Morphine (Carpuject)) 2 mg IVP Q2HR PRN PRN Reason: Dyspnea Nitroglycerin (Nitrostat) 0.4 mg SL DAILY PRN PRN Reason: Angina Ondansetron HCl (Zofran Inj) 4 mg IVP Q6HR PRN PRN Reason: Nausea / Vomiting Pantoprazole Sodium (Protonix) 40 mg PO QDAC [facility] Last Admin: 09/02/18 06:03 Dose: 40 mg Non Formulary Med ( Melatonin [Melatonin ] 3 Mg) Tab 1 each PO QPM PRN PRN Reason: Insomnia Polyethylene Glycol (Miralax) 17 gm PO DAILY [facility] Last Admin: 09/02/18 08:23 Dose: 17 gm Sodium Chloride (Normal Saline Flush 0.9%) 10 ml IVP PRN PRN PRN Reason: NEEDED PER PROVIDER ORDERS Sodium Chloride (Normal Saline Flush 0.9%) 10 ml IVP 0100,0900,1700 [facility] Last Admin: 09/02/18 08:23 Dose: 10 ml Fluticasone Furoate [Veramyst] 1 spr NS DAILY 12/18/13 Lansoprazole 30 mg PO DAILY 12/18/13 Levothyroxine Sodium [Synthroid] 100 mcg PO DAILY 12/18/13 Losartan/Hydrochlorothiazide [Losartan-Hctz 50-12.5 mg Tab] 1 each PO DAILY 12/18/13 Calcium Carbonate/Vitamin D3 [Calcium 500 + D Tablet] 1 tab PO DAILY 12/11/14 Cholecalciferol (Vitamin D3) [Vitamin D] 2,000 mg PO DAILY 12/11/14 Gluc HCl/Csa/Collagen/Hyalur A [Glucosamine Chondroitin Cap] 500 mg PO DAILY 12/11/14 Melatonin 3 mg PO QPM 12/11/14 Acetaminophen/Cod 300/30 [Tylenol #3] 1 each PO Q4-6H PRN 09/01/18 Ascorbic Acid 500 mg PO DAILY 09/01/18 Aspirin [Aspirin EC] 81 mg PO DAILY 09/01/18 Atorvastatin Calcium 80 mg PO QPM 09/01/18 Clopidogrel Bisulfate [Clopidogrel] 75 mg PO DAILY 09/01/18 Fluticasone/Vilanterol [Breo Ellipta 100-25 Mcg INH] 1 each IH DAILY 09/01/18 Gabapentin 300 mg PO QID 09/01/18 Metoprolol Succinate 50 mg PO DAILY 09/01/18 Multivitamin [Multiple Vitamins] 1 each PO DAILY 09/01/18 Nitroglycerin 0.4 mg SL DAILY PRN 09/01/18 [place]-3/Dha/Epa/Fish Oil [[place] 3 500 Softgel] 1 each PO DAILY 09/01/18 Triamcinolone 0.1% Cream [Kenalog 0.1% Cream] 1 applic TOP BID 09/01/18 Urea 1 applic TP DAILY PRN 09/01/18 guaiFENesin [Mucinex] 600 mg PO DAILY 09/02/18
[2018-09-02] MEDS ORDERED: diphenhydrAMINE 25 MG CAPSULE PO PRN (18:19)
[2018-09-02] MEDS: ATORVASTATIN 40 MG TABLET PO SCH (20:37)
[2018-09-03] MEDS: SODIUM CHLORIDE FLUSH 0.9% 10 ML SYRINGE IVP SCH ×2 (00:32→08:31)
[2018-09-03] MEDS: PANTOPRAZOLE 40 MG TABLET PO SCH (06:12)
[2018-09-03 08:23] VITALS: BP 128/79
[2018-09-03] MEDS: LOSARTAN 50 MG TABLET PO SCH (08:28)
[2018-09-03] MEDS: CETIRIZINE 10 MG TABLET PO SCH (08:28)
[2018-09-03] MEDS: LEVOTHYROXINE 100 MCG TABLET PO SCH (08:28)
[2018-09-03] MEDS: FAMOTIDINE 20 MG TABLET PO SCH (08:28)
[2018-09-03] MEDS: CLOPIDOGREL 75 MG TABLET PO SCH (08:29)
[2018-09-03] MEDS: FUROSEMIDE 20 MG TABLET PO SCH (08:29)
[2018-09-03] MEDS: POLYETHYLENE GLYCOL 3350 17 GM PACKET PO SCH (08:29)
[2018-09-03] MEDS: GABAPENTIN 300 MG CAPSULE PO SCH (08:29)
[2018-09-03] MEDS: ASPIRIN EC 81 MG TABLET PO SCH (08:29)
[2018-09-03] MEDS: CYCLOBENZAPRINE 10 MG TABLET PO SCH (08:29)
[2018-09-03] MEDS: ENOXAPARIN 40 MG/0.4 ML SYRINGE SUBQ SCH (08:30)
[2018-09-03] MEDS: FLUTICASONE NASAL SPRAY NAS SCH (08:31)
--- NOTE | 2018-09-03 09:17 | Discharge Plan ---
Discharge Plan Disposition: 01 Home, Self Care Condition: Fair Prescriptions: Losartan [Cozaar] 50 mg PO DAILY #90 tablet Diet: Cardiac Activity Restrictions: Resume normal exercise on Saturday Shower Restrictions: No Driving Restrictions: No Weight Bearing: Full Weight Additional Instructions or Follow Up instructions: You presented to our emergency department after your heart rate became low and blood pressure dropped while exercising in cardiac rehab. Given that you just had had a heart attack 3 weeks ago we took extra precaution and watched you over 2 days. We held your blood pressure medications metoprolol and hydrochlorothiazide. Your heart rate has now improved up to the 60s and blood pressures remain stable. You underwent testing of your heart with serial cardiac enzymes which were all normal. You also had a stress test which did not reveal any new changes. We spoke with the fur sorter on-call at [facility] in [place] and he asked that you stop taking metoprolol and hydrochlorothiazide. I have given you a prescription for losartan which you will take daily along with your previous medications including aspirin, Plavix and Lipitor. You will follow-up with your fur sorter in 2 weeks as you have been previously scheduled to do. He will be okay to resume cardiac rehab on Saturday. Follow-Up Care: [facility] - Cardiac No Smoking: If you smoke, Please STOP! Call for help. Follow-up with: HE WHITE [Primary Care Provider] -
--- NOTE | 2018-09-03 09:26 | DISCHARGE SUMMARY ---
"Discharge Summary Admit Date: 09/01/18 Discharge Date: 09/03/18 Discharging Provider: Dennis Schmidt MD Primary Care Provider: Ronny Romo MD Code Status: Attempt Resuscitation Condition at Discharge: Fair Discharge Disposition: 01 Home, Self Care - DIAGNOSES Admission Diagnoses: 1. Bradycardia 2. Hypotension 3. Coronary artery disease 4. Recent myocardial infarction with stenting 5. History of hypertension 6. History of elevated cholesterol 7. Hypothyroidism 8. Obesity Discharge Diagnoses with Status of Each Condition: 1. Bradycardia: Improved 2. Hypotension: Resolved 3. History of coronary artery disease: Stable 4. Hypertension: Stable 5. Hyperlipidemia: Stable 6. Hypothyroidism: Stable - HPI History of Present Illness: Patient is a 78-year-old white male with a history of obesity, uses 2 inhalers for snoring at night, has history of hypertension, valvular heart disease, elevated cholesterol, hypothyroidism and GERD. The patient suffered an LA 3 weeks ago while he was camping and hiking, had delayed presentation for many hours until his insisted that he go to the emergency department. He was taken to [facility] for an angiogram, where he stayed and had management. He was discharged on new atorvastatin, aspirin and Plavix, and meto prolol 50 mg daily. The patient had stenting of his obtuse marginal coronary artery and angiogram did reveal residual 50% blockage in the LAD artery. They did do FFR to determine that it did not need to be further stented, as it was not physiologically significant lesion. The patient started cardiac rehabilitation 1 week ago. He had 4 sessions. Today while at cardiac rehabilitation, he had resting heart rate of 43, did start exercising and had no trouble; however after doing one of the exercises, the cardiac rehab nurse noted that he was pale as a ghost and that his blood pressure had dropped and heart rate had been in the 40s and only rigoberto into the 70s. He was taken to the emergency room for admission. There he had no chest pain similar to when he had an LA 3 weeks ago. His only symptom was nausea and he denied shortness of breath. He has been compliant with all his medications since his LA. He had no syncope but thinks there may be mild lethargy since his LA and new meds. - CONSULTS | PROCEDURES Procedures: Patient underwent a treadmill cardiac stress test Patient was previously on a beta-damion and resting heart rate was 50. The patient was able to get to a maximum heart rate of 98 at which point he could no longer tolerate the treadmill. He did not reach the desired maximum heart rate. During the stress test the patient had no ST changes. The patient did have frequent PVCs but no other abnormalities were noted. The patient had no chest pain or other symptoms during the stress test. Overall this was a negative study and we will be awaiting the results of the nuclear stress test to confirm. - HOSPITAL COURSE Hospital Course: The patient presented with bradycardia and hypotension while he was at cardiac rehab and exercising. The patient's hydrochlorothiazide and metoprolol were held during the hospitalization and his bradycardia and hypotension resolved. The patient underwent serial troponins and telemetry monitoring. The patient's troponins were negative x3. The patient underwent nuclear stress imaging which did not show any new reversible ischemic changes. I spoke with Dr. Pena of [facility] who recommended stopping the patient's metoprolol and hydrochlorothiazide and continuing him on losartan, aspirin, Plavix and Lipitor. He asked that the patient follow-up in the cardiology clinic. Patient was discharged home in stable condition and will restart with cardiac rehab on Saturday. The patient will follow up with a towel sewer in 2 weeks. The patient was given a prescription for losartan and his metoprolol and hydrochlorothiazide were stopped. - ALLERGIES Allergies/Adverse Reactions: Allergies Allergy/AdvReac Type Severity Reaction Status Date / Time Sulfa (Sulfonamide Allergy Unknown Verified 12/18/13 10:56 Antibiotics) - MEDICATIONS Home Medications: Ambulatory Orders Medication Instructions Recorded Confirmed Fluticasone Furoate [Veramyst] 1 spr NS DAILY 12/18/13 09/01/18 Lansoprazole 30 mg PO DAILY 12/18/13 09/01/18 Levothyroxine Sodium [Synthroid] 100 mcg PO DAILY 12/18/13 09/01/18 Calcium Carbonate/Vitamin D3 1 tab PO DAILY 12/11/14 09/01/18 [Calcium 500 + D Tablet] Cholecalciferol (Vitamin D3) 2,000 mg PO DAILY 12/11/14 09/01/18 [Vitamin D3] Gluc HCl/Csa/Collagen/Hyalur A 500 mg PO DAILY 12/11/14 09/01/18 [Glucosamine Chondroitin Cap] Melatonin 3 mg PO QPM 12/11/14 09/01/18 Acetaminophen/Cod 300/30 [Tylenol 1 each PO Q4-6H PRN 09/01/18 09/01/18 #3] Ascorbic Acid 500 mg PO DAILY 09/01/18 09/01/18 Aspirin [Aspirin EC] 81 mg PO DAILY 09/01/18 09/01/18 Atorvastatin Calcium 80 mg PO QPM 09/01/18 09/01/18 Clopidogrel Bisulfate [Clopidogrel] 75 mg PO DAILY 09/01/18 09/01/18 Fluticasone/Vilanterol [Breo 1 each IH DAILY 09/01/18 09/01/18 Ellipta 100-25 Mcg INH] Gabapentin 300 mg PO QID 09/01/18 09/01/18 Multivitamin [Multiple Vitamins] 1 each PO DAILY 09/01/18 09/01/18 Nitroglycerin 0.4 mg SL DAILY PRN 09/01/18 09/01/18 [place]-3/Dha/Epa/Fish Oil [[place] 3 1 each PO DAILY 09/01/18 09/01/18 500 Softgel] Triamcinolone 0.1% Cream [Kenalog 1 applic TOP BID 09/01/18 09/01/18 0.1% Cream] Urea 1 applic TP DAILY PRN 09/01/18 09/01/18 guaiFENesin [Mucinex] 600 mg PO DAILY 09/02/18 09/02/18 Losartan [Cozaar] 50 mg PO DAILY #90 tablet 09/03/18 - PHYSICAL EXAM AT DISCHARGE General Appearance: positive: No acute distress, Alert Eyes Bilateral: positive: Normal inspection, PERRL, EOMI, No lid inflammation, Conjunctivae nml, No scleral icterus ENT: positive: ENT inspection nml, Pharynx nml, No signs of dehydration Neck: positive: Nml inspection, Thyroid nml, No JVD, Trachea midline. negative: Thyromegaly, Lymphadenopathy (R), Lymphadenopathy (L), Carotid bruit, Tracheal deviation Respiratory: positive: Chest non-tender, No respiratory distress, Breath sounds nml. negative: Wheezes, Rales, Rhonchi Cardiovascular: positive: Regular rate & rhythm, No murmur, No gallop Peripheral Pulses: positive: 2+ Abdomen: positive: Non-tender, No organomegaly, Nml bowel sounds, No distention. negative: Guarding, Rebound, Hepatomegaly Back: positive: Nml inspection. negative: CVA tenderness (R), CVA tenderness (L) Skin: positive: Color nml, No rash, Warm, Dry. negative: Cyanosis, Diaphoresis, Pallor, Skin rash Extremities: positive: Non-tender, Full ROM, Nml appearance, No pedal edema Neurologic/Psychiatric: positive: Oriented x3, CN's nml (2-12), Motor nml, Sensation nml, Mood/affect nml - LABS Result Diagrams: 09/01/18 10:50 09/02/18 05:25 Other Lab Results: Laboratory Results WBC 6.9 x10^3/uL (4.8-10.8) 09/01/18 10:50 RBC 4.44 10^6/uL (4.70-6.10) L 09/01/18 10:50 Hgb 14.2 g/dL (14.0-18.0) 09/01/18 10:50 Hct 41.2 % (42.0-52.0) L 09/01/18 10:50 MCV 92.6 fL (80.0-94.0) 09/01/18 10:50 MCH 32.0 pg (27.0-31.0) H 09/01/18 10:50 MCHC 34.6 g/dL (32.0-36.0) 09/01/18 10:50 RDW 12.8 % (12.0-15.0) 09/01/18 10:50 Plt Count 168 10^3/uL (130-450) 09/01/18 10:50 MPV 8.8 fL (7.4-11.4) 09/01/18 10:50 Neut # (Auto) 5.4 10^3/uL (1.5-6.6) 09/01/18 10:50 Lymph # (Auto) 0.9 10^3/uL (1.5-3.5) L 09/01/18 10:50 [place] # (Auto) 0.5 10^3/uL (0.0-1.0) 09/01/18 10:50 Eos # (Auto) 0.1 10^3/uL (0.0-0.7) 09/01/18 10:50 Baso # (Auto) 0.0 10^3/uL (0.0-0.1) 09/01/18 10:50 Absolute Nucleated RBC 0.00 x10^3/uL 09/01/18 10:50 Nucleated RBC % 0.0 /100WBC 09/01/18 10:50 Sodium 137 mmol/L (135-145) 09/02/18 05:25 Potassium 3.7 mmol/L (3.5-5.0) 09/02/18 05:25 Chloride 102 mmol/L (101-111) 09/02/18 05:25 Carbon Dioxide 30 mmol/L (21-32) 09/02/18 05:25 Anion Gap 5.0 (6-13) L 09/02/18 05:25 BUN 20 mg/dL (6-20) 09/02/18 05:25 Creatinine 1.0 mg/dL (0.6-1.2) 09/02/18 05:25 Estimated GFR (MDRD) 73 (>89) L 09/02/18 05:25 Glucose 99 mg/dL (70-100) 09/02/18 05:25 Calcium 8.8 mg/dL (8.5-10.3) 09/02/18 05:25 Magnesium 1.9 mg/dL (1.7-2.8) 09/01/18 10:50 Total Bilirubin 0.9 mg/dL (0.2-1.0) 09/01/18 10:50 Direct Bilirubin 0.1 mg/dL (0.1-0.5) 09/01/18 10:50 AST 27 IU/L (10-42) 09/01/18 10:50 ALT 23 IU/L (10-60) 09/01/18 10:50 Alkaline Phosphatase 71 IU/L (42-121) 09/01/18 10:50 Troponin I < 0.04 ng/mL (<0.49) 09/01/18 23:11 Total Protein 6.9 g/dL (6.7-8.2) 09/01/18 10:50 Albumin 3.9 g/dL (3.2-5.5) 09/01/18 10:50 Globulin 3.0 g/dL (2.1-4.2) 09/01/18 10:50 Triglycerides 69 mg/dL (-149) 09/02/18 05:25 Cholesterol 100 mg/dL (-199) 09/02/18 05:25 LDL Cholesterol, Calc 56 mg/dL (-129) 09/02/18 05:25 VLDL Cholesterol 14 mg/dL 09/02/18 05:25 HDL Cholesterol 30 mg/dL (60-) L 09/02/18 05:25 LDL/HDL Ratio 1.9 (<3.6) 09/02/18 05:25 Cholesterol/HDL Ratio 3.3 (<5.0) 09/02/18 05:25 TSH 3.01 uIU/mL (0.34-5.60) 09/01/18 10:50 - DIAGNOSTIC IMAGING Diagnostic Imaging Results: Final report reviewed Diagnostic Imaging Results Comments: Chest x-ray Impression: No active cardiopulmonary disease Myocardial perfusion scan nuclear medicine Impression: 1. 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 2. Normal left ventricular ejection fraction of 63% 3. Normal segmental and global wall motion. 4. Moderate cardiac chamber enlargement that does not vary with stress. - FOLLOW UP Follow Up: Patient presented with bradycardia and hypotension while exercising. The patient's metoprolol and hydrochlorothiazide were held. The patient's bradycardia and hypotension resolved. The patient underwent serial troponins which were negative and a stress test which showed no acute reversible ischemia. The patient had no chest pain or shortness of breath during the hospitalization. The patient was discharged home with metoprolol and hydrochlorothiazide held. Patient was given a prescription for losartan and will continue on Plavix, aspirin and Lipitor. Patient will follow up with his towel sewer in 2 weeks. Patient will resume with cardiac rehab on Saturday. - TIME SPENT Time Spent in Discharge (Minutes): 40"
== END 2018-09-03 11:05 | disposition home or self-care (01) ==
LOC: ED 10:05 → MS2 12:37
PROVIDERS: ADMIT Internal Medicine; ATTEND Internal Medicine
DX: R00.1 Bradycardia, unspecified (principal); I95.9 Hypotension, unspecified; T44.7X5A Adverse effect of beta-adrenoreceptor antagonists, initial encounter; T50.2X5A Adverse effect of carbonic-anhydrase inhibitors, benzothiadiazides and other diuretics, initial encounter; Y92.238 Other place in hospital as the place of occurrence of the external cause; I25.10 Atherosclerotic heart disease of native coronary artery without angina pectoris; R07.89 Other chest pain; I21.9 Acute myocardial infarction, unspecified; R55 Syncope and collapse; I10 Essential (primary) hypertension; E78.5 Hyperlipidemia, unspecified; E03.9 Hypothyroidism, unspecified; E66.9 Obesity, unspecified; K21.9 Gastro-esophageal reflux disease without esophagitis; R06.83 Snoring; Z95.5 Presence of coronary angioplasty implant and graft; Z79.899 Other long term (current) drug therapy; Z79.82 Long term (current) use of aspirin; Z79.02 Long term (current) use of antithrombotics/antiplatelets; Z68.37 Body mass index [BMI] 37.0-37.9, adult
CPT/HCPCS: 36415; 71045; 78452; 80048; 80061; 80076; 83735; 84443; 84484; 85025; 93005; 93017; 96372; 99284; A9270; A9500; G0378; J1650; 83721

== ENCOUNTER 2018-09-25 08:14 | Outpatient (CLI) | payer BC | END 2018-09-25 08:15 | disposition home or self-care (01) | LOC: LAB.F 08:14 | PROVIDERS: ATTEND Physician Assistant Medical | DX: Z53.9 Procedure and treatment not carried out, unspecified reason (principal) | CPT/HCPCS: 36415; 82565; 84450; 84460; 84520; 85025; 86803 ==

== ENCOUNTER 2018-09-26 07:12 | Outpatient (CLI) | payer BC ==
[2018-09-26 11:59] LABS: BASOPHILS % (AUTO) 0.8 %; EOSINOPHILS # (AUTO) 0.1 10^3/uL (0.0-0.7); EOSINOPHILS % (AUTO) 2.3 %; HGB - HEMOGLOBIN 14.4 g/dL (14.0-18.0); LYMPHOCYTES # (AUTO) 0.9 10^3/uL (1.5-3.5); LYMPHOCYTES % (AUTO) 15.8 %; MEAN CORPUSCULAR HEMOGLOBIN 32.2 pg (27.0-31.0); MEAN CORPUSCULAR HGB CONC 34.5 g/dL (32.0-36.0); MEAN CORPUSCULAR VOLUME 93.2 fL (80.0-94.0); MONOCYTES # (AUTO) 0.4 10^3/uL (0.0-1.0); MONOCYTES % (AUTO) 6.9 %; NEUTROPHILS # (AUTO) 4.1 10^3/uL (1.5-6.6); NEUTROPHILS % (AUTO) 74.2 %; PLT - PLATELET COUNT 181 10^3/uL (130-450); RED BLOOD COUNT 4.48 10^6/uL (4.70-6.10); RED CELL DISTRIBUTION WIDTH 13.5 % (12.0-15.0); WHITE BLOOD COUNT 5.6 x10^3/uL (4.8-10.8)
[2018-09-26 12:31] LABS: ALBUMIN/GLOBULIN RATIO 1.3 (1.0-2.2); ALKALINE PHOSPHATASE 79 IU/L (42-121); ALT ALANINE AMINOTRANSFERASE 26 IU/L (10-60); AST ASPARTATE AMINOTRANSFERASE 24 IU/L (10-42); BILIRUBIN,TOTAL 0.6 mg/dL (0.2-1.0); BUN - BLOOD UREA NITROGEN 29 mg/dL (6-20); CALCIUM 8.7 mg/dL (8.5-10.3); CARBON DIOXIDE - CO2 31 mmol/L (21-32); CHLORIDE 103 mmol/L (101-111); CHOL/HDL RATIO 2.8 (<5.0); CHOLESTEROL 105 mg/dL; GFR - MDRD 73 (>89); GLUCOSE 104 mg/dL (70-100); HDL CHOLESTEROL 37 mg/dL; LDL CHOLESTEROL,CALCULATED 57 mg/dL; LDL/HDL RATIO 1.5 (<3.6); SODIUM 141 mmol/L (135-145); VLDL CHOLESTEROL 11 mg/dL
[2018-09-27 12:21] LABS: HEPATITIS C ANTIBODY NON-REACTIVE (NON-REACTIVE)
[2018-09-27 16:58] LABS: HB2 TOTAL 14.8 g/dL; HEMOGLOBIN A1C 0.56 g/dL; HEMOGLOBIN A1C % 5.6 % (4.6-6.2)
== END 2018-09-26 07:13 | disposition home or self-care (01) ==
LOC: LAB.F 07:12
PROVIDERS: ATTEND Physician Assistant Medical
DX: E78.2 Mixed hyperlipidemia (principal); R53.81 Other malaise; I25.10 Atherosclerotic heart disease of native coronary artery without angina pectoris; Z79.899 Other long term (current) drug therapy; L20.84 Intrinsic (allergic) eczema
CPT/HCPCS: 36415; 80053; 80061; 82565; 83036; 83721; 84443; 84450; 84460; 84520; 85025; 86803

== ENCOUNTER 2019-04-14 08:00 | Outpatient (CLI) | payer BC | END 2019-04-14 08:01 | disposition home or self-care (01) | LOC: LAB.F 08:00 | PROVIDERS: ATTEND Physician Assistant Medical | DX: L30.8 Other specified dermatitis (principal) ==

== ENCOUNTER 2019-04-15 10:27 | Outpatient (CLI) | payer BC ==
[2019-04-15 10:46] LABS: BASOPHILS % (AUTO) 0.6 %; EOSINOPHILS # (AUTO) 0.1 10^3/uL (0.0-0.7); EOSINOPHILS % (AUTO) 2.4 %; HGB - HEMOGLOBIN 15.1 g/dL (14.0-18.0); LYMPHOCYTES % (AUTO) 17.9 %; MEAN CORPUSCULAR HEMOGLOBIN 31.1 pg (27.0-31.0); MEAN CORPUSCULAR HGB CONC 32.6 g/dL (32.0-36.0); MEAN CORPUSCULAR VOLUME 95.3 fL (80.0-94.0); MEAN PLATELET VOLUME 10.5 fL (7.4-11.4); MONOCYTES # (AUTO) 0.4 10^3/uL (0.0-1.0); MONOCYTES % (AUTO) 7.3 %; NEUTROPHILS # (AUTO) 3.9 10^3/uL (1.5-6.6); NEUTROPHILS % (AUTO) 71.6 %; PLT - PLATELET COUNT 164 10^3/uL (130-450); RED BLOOD COUNT 4.86 10^6/uL (4.70-6.10); RED CELL DISTRIBUTION WIDTH 12.7 % (12.0-15.0); WHITE BLOOD COUNT 5.4 x10^3/uL (4.8-10.8)
[2019-04-15 11:01] LABS: ALBUMIN 4.2 g/dL (3.2-5.5); BILIRUBIN,DIRECT 0.1 mg/dL (0.1-0.5); BILIRUBIN,TOTAL 0.8 mg/dL (0.2-1.0); TOTAL PROTEIN 7.5 g/dL (6.7-8.2)
[2019-04-16 12:32] LABS: HEPATITIS B SURFACE ANTIGEN NON-REACTIVE (NON-REACTIVE)
[2019-04-16 14:06] LABS: HEPATITIS C ANTIBODY NON-REACTIVE (NON-REACTIVE)
== END 2019-04-15 10:28 | disposition home or self-care (01) ==
LOC: LAB 10:27
PROVIDERS: ATTEND Physician Assistant Medical
DX: L30.8 Other specified dermatitis (principal)
CPT/HCPCS: 36415; 80076; 81599; 85025; 86480; 86803; 87340

== ENCOUNTER 2020-04-29 11:34 | Outpatient (CLI) | payer BC ==
--- NOTE | 2020-04-29 12:08 | XRAY Report ---
PROCEDURE: Finger(s) RT INDICATIONS: LACERATION OF RIGHT INDEX FINGER TECHNIQUE: AP hand, 3 views of the second finger(s) acquired. COMPARISON: None FINDINGS: Bones: No fractures or dislocations. No suspicious bony lesions. Osteoarthritic changes are noted throughout the interphalangeal joints. Soft tissues: No suspicious soft tissue calcifications. Soft tissue swelling around proximal portio n of second digit is seen. No radiopaque foreign body is noted. IMPRESSION: 1. No acute second finger fracture or dislocation. 2. Soft tissue swelling in proximal second finger. No radiopaque foreign body. Reviewed by: Russell Pearce MD on 04/29/2020 12:07 PM PDT Approved by: Russell Pearce MD on 04/29/2020 12:07 PM PDT Station ID: [id number]
== END 2020-04-29 11:35 | disposition home or self-care (01) ==
LOC: DI.S 11:34
PROVIDERS: ATTEND Physician Assistant Medical
DX: S61.210A Laceration without foreign body of right index finger without damage to nail, initial encounter (principal)
CPT/HCPCS: 73140

== ENCOUNTER 2020-08-12 09:00 | Outpatient (CLI) | payer BC | END 2020-08-12 09:01 | disposition home or self-care (01) | LOC: COV 09:00 | PROVIDERS: ATTEND Internal Medicine Critical Care Medicine | DX: Z01.812 Encounter for preprocedural laboratory examination (principal); Z20.828 Contact with and (suspected) exposure to other viral communicable diseases ==

== ENCOUNTER 2020-12-05 20:05 | Outpatient (CLI) | payer BC ==
--- NOTE | 2020-12-05 21:56 | Ultrasound Report ---
PROCEDURE: Head or Neck Soft Tissue INDICATIONS: LOCALIZED SWELLING MASS/LUMP RT PAROTID TECHNIQUE: Real time scanning was performed of the neck region of interest, with image documentation . COMPARISON: None. FINDINGS: In the region of the right parotid gland there is a well-circumscribed 2.8 x 3.8 x 2.5 cm m ass with anechoic regions consistent with fluid. There is no internal flow. IMPRESSION: 2.8 x 3.8 x 2.5 cm mass in the right parotid region. Differential diagnosis includes a n ecrotic neoplasm or lymph node versus abscess. CT of the neck with contrast would be helpful to mehdi avalos Reviewed by: Sarkis Comer on 12/05/2020 9:55 PM PST Approved by: Sarkis Comer on 12/05/2020 9:55 PM PST Station ID: [id number]
== END 2020-12-05 20:06 | disposition home or self-care (01) ==
LOC: DI 20:05
PROVIDERS: ATTEND Physician Assistant Medical
DX: K11.9 Disease of salivary gland, unspecified (principal)

== ENCOUNTER 2020-12-06 10:58 | Outpatient (CLI) | payer BC ==
[2020-12-06] MEDS ORDERED: IOVERSOL 320 100 ML VIAL IVP ONE ×2 (11:12→18:25)
--- NOTE | 2020-12-06 12:49 | CT Report ---
PROCEDURE: SOFT TISSUE NECK W INDICATIONS: LOCALIZED SWELLING, MASS, LUMP, NECK CONTRAST: IV CONTRAST: Optiray 320 ml: 100 PO CONTRAST: *NO PO CONTRAST TECHNIQUE: After the administration of intravenous contrast, 3.0 mm axial sections acquired from the sella to th e aortic arch. Additional oblique axial 3.0 mm sections acquired through the pharynx. 3 mm thick co tuan reformats were generated. For radiation dose reduction, the following was used: automated exp osure control, adjustment of mA and/or kV according to patient size. COMPARISON: None. FINDINGS: Image quality: Excellent. Lymph nodes: No enlarged lymph nodes seen throughout the neck. Vessels: Visualized vasculature appears patent. Neck spaces: The oropharynx, nasopharynx, and pharynx demonstrate no mucosal lesions. The vocal cor ds, false vocal cords, pyriform sinuses, epiglottis, vallecula, and tongue base all appear normal. E xtramucosal spaces appear unremarkable. Glands: There is asymmetric enlargement of the right parotid gland and central, heterogeneous increas ed attenuation. Vague high density lesion measures roughly 2.9 x 2.8 x 2.4 cm. There is also enlargem ent of the deep lobe of the right parotid gland and posterior displacement of the sternocleidomastoid muscle. No overlying skin thickening or significant subcutaneous edema. No visible ductal dilatation or calculi. The left parotid and submandibular glands appear normal. The thyroid is normal in size. Miscellaneous: Visualized brain and orbits appear normal. Lung apices appear clear. Superficial so ft tissues appear normal. Bones: No suspicious bony lesions. Mild mucosal thickening at the base of the maxillary sinuses. Vi sualized sinuses and mastoids appear otherwise unremarkable. Multilevel severe degenerative changes i n the cervical spine. IMPRESSION: 1. Abnormal enlargement and heterogeneity of the right superficial and deep parotid gland lobes. Diff erential diagnosis includes intraglandular adenopathy, neoplasm, and less likely infection given lack of surrounding inflammatory change. Ultrasound is recommended for further characterization of the pa rotid gland and subsequent ENT consult. 2. No adenopathy in the neck. 3. Mild mucosal thickening in the maxillary sinus bases. Reviewed by: Nahomy Brewster MD on 12/06/2020 11:48 AM [facility] Approved by: Nahomy Brewster MD on 12/06/2020 11:48 AM [facility] Station ID: [id number]
== END 2020-12-06 10:59 | disposition home or self-care (01) ==
LOC: DI 10:58
PROVIDERS: ATTEND Physician Assistant Medical
DX: Z01.812 Encounter for preprocedural laboratory examination (principal); R22.1 Localized swelling, mass and lump, neck; K11.1 Hypertrophy of salivary gland
CPT/HCPCS: 36415; 70491; 82565; Q9967

== ENCOUNTER 2020-12-06 11:02 | Outpatient (CLI) | payer BC | END 2020-12-06 11:03 | disposition home or self-care (01) | LOC: LAB 11:02 | PROVIDERS: ATTEND Physician Assistant Medical | DX: Z01.812 Encounter for preprocedural laboratory examination (principal) | CPT/HCPCS: 36415; 82565 ==

== ENCOUNTER 2020-12-10 09:19 | Outpatient (CLI) | payer BC ==
[2020-12-10 14:57] LABS: BASOPHILS % (AUTO) 0.4 %; EOSINOPHILS # (AUTO) 0.2 10^3/uL (0.0-0.7); EOSINOPHILS % (AUTO) 2.6 %; HGB - HEMOGLOBIN 14.4 g/dL (14.0-18.0); LYMPHOCYTES # (AUTO) 1.1 10^3/uL (1.5-3.5); LYMPHOCYTES % (AUTO) 14.5 %; MEAN CORPUSCULAR HEMOGLOBIN 32.3 pg (27.0-31.0); MEAN CORPUSCULAR VOLUME 97.8 fL (80.0-94.0); MONOCYTES # (AUTO) 0.6 10^3/uL (0.0-1.0); MONOCYTES % (AUTO) 8.2 %; NEUTROPHILS # (AUTO) 5.4 10^3/uL (1.5-6.6); NEUTROPHILS % (AUTO) 73.9 %; PLT - PLATELET COUNT 177 10^3/uL (130-450); RED BLOOD COUNT 4.46 10^6/uL (4.70-6.10); RED CELL DISTRIBUTION WIDTH 13.1 % (12.0-15.0); WHITE BLOOD COUNT 7.3 x10^3/uL (4.8-10.8)
[2020-12-10 15:26] LABS: ALBUMIN 3.9 g/dL (3.2-5.5); ALBUMIN/GLOBULIN RATIO 1.1 (1.0-2.2); BILIRUBIN,TOTAL 0.9 mg/dL (0.2-1.0); CREATININE 0.9 mg/dL (0.6-1.2); TOTAL PROTEIN 7.3 g/dL (6.7-8.2)
== END 2020-12-10 09:20 | disposition home or self-care (01) ==
LOC: LAB.S 09:19
PROVIDERS: ATTEND Internal Medicine
DX: K11.8 Other diseases of salivary glands (principal)
CPT/HCPCS: 36415; 80053; 83615; 85025

== ENCOUNTER 2021-06-06 12:19 | Outpatient (CLI) | payer BC ==
[2021-06-06 12:57] LABS: ALBUMIN 4.2 g/dL (3.2-5.5); ALBUMIN/GLOBULIN RATIO 1.5 (1.0-2.2); BILIRUBIN,TOTAL 0.7 mg/dL (0.2-1.0); CALCIUM 8.8 mg/dL (8.5-10.3); POTASSIUM 4.2 mmol/L (3.5-5.0)
[2021-06-06] MEDS ORDERED: IOPAMIDOL-300 100 ML VIAL ONE (13:17)
[2021-06-06] MEDS ORDERED: IOPAMIDOL-300 100 ML VIAL IVP ONE (15:19)
--- NOTE | 2021-06-06 15:48 | CT Report ---
PROCEDURE: ANGIO UPPER EXT W/WO - RT INDICATIONS: ANEURYSM OF ARTERY OF UPPER EXTREMITY TECHNIQUE: Following the intravenous administration of iodinated contrast. Arterial phase imaging of the right upper extremity is performed. Data is reconstructed in axial, sagittal, and coronal section s. COMPARISON: None. FINDINGS: The innominate, right subclavian, right axillary, and right brachial arteries are patent. The radial and ulnar arteries are patent radial artery is prominent in size, measuring roughly 5 mm in diameter. 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 There is no evidence of aneurysm. No hematoma. Visualized osseous structures are grossly unre markable. 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 No definite aneury sm. Initial further assessment with Doppler ultrasound is recommended. Reviewed by: Napoleon Walter MD on 06/06/2021 3:46 PM PDT Approved by: Napoleon Walter MD on 06/06/2021 3:46 PM PDT Station ID: [id number]
== END 2021-06-06 12:20 | disposition home or self-care (01) ==
LOC: LAB 12:19
PROVIDERS: ATTEND Internal Medicine
DX: Z79.899 Other long term (current) drug therapy (principal); I72.1 Aneurysm of artery of upper extremity; R93.6 Abnormal findings on diagnostic imaging of limbs
CPT/HCPCS: 36415; 73206; 80053; Q9967

== ENCOUNTER 2021-09-26 10:16 | Outpatient (CLI) | payer BC ==
--- NOTE | 2021-09-26 14:42 | XRAY Report ---
PROCEDURE: Foot 3 View RT INDICATIONS: ACUTE PAIN SINCE 07/2021 RT FOOT TECHNIQUE: 3 views of the foot were acquired. COMPARISON: None FINDINGS: Bones: No fractures or dislocations. No suspicious bony lesions. There is severe narrowing at the first MTP and DIP joints. Areas of periarticular osteophytes, subchondral sclerosis as well as subcho ndral lucencies are present. There are moderate scattered areas of remaining IP degenerative narrowin g throughout the remainder of the digits. Soft tissues: No tibiotalar joint effusion. Achilles tendon appears normal. IMPRESSION: Arthritic changes as above most severe at the first MTP and DIP joint as above. Areas of underlying e rosion cannot be excluded likely secondary to arthritic change. However, gout can have a similar appe arance if clinically appropriate. Reviewed by: Kiana Cortes MD on 09/26/2021 2:40 PM PST Approved by: Kiana Cortes MD on 09/26/2021 2:40 PM PST Station ID: [id number]
== END 2021-09-26 10:17 | disposition home or self-care (01) ==
LOC: DI 10:16
PROVIDERS: ATTEND Podiatrist
DX: M19.071 Primary osteoarthritis, right ankle and foot (principal)

== ENCOUNTER 2021-11-15 11:02 | Outpatient (CLI) | payer BC ==
[2021-11-15 14:56] LABS: BASOPHILS % (AUTO) 0.6 %; EOSINOPHILS # (AUTO) 0.1 10^3/uL (0.0-0.7); EOSINOPHILS % (AUTO) 2.5 %; HCT - HEMATOCRIT 44.2 % (42.0-52.0); HGB - HEMOGLOBIN 15.2 g/dL (14.0-18.0); LYMPHOCYTES # (AUTO) 1.1 10^3/uL (1.5-3.5); LYMPHOCYTES % (AUTO) 20.8 %; MEAN CORPUSCULAR HEMOGLOBIN 32.6 pg (27.0-31.0); MEAN CORPUSCULAR HGB CONC 34.4 g/dL (32.0-36.0); MEAN CORPUSCULAR VOLUME 94.8 fL (80.0-94.0); MEAN PLATELET VOLUME 10.8 fL (7.4-11.4); MONOCYTES # (AUTO) 0.4 10^3/uL (0.0-1.0); MONOCYTES % (AUTO) 6.9 %; NEUTROPHILS # (AUTO) 3.6 10^3/uL (1.5-6.6); PLT - PLATELET COUNT 153 10^3/uL (130-450); RED BLOOD COUNT 4.66 10^6/uL (4.70-6.10); RED CELL DISTRIBUTION WIDTH 12.8 % (12.0-15.0); WHITE BLOOD COUNT 5.2 x10^3/uL (4.8-10.8)
[2021-11-15 15:28] LABS: ALBUMIN 4.1 g/dL (3.2-5.5); ALBUMIN/GLOBULIN RATIO 1.4 (1.0-2.2); ALKALINE PHOSPHATASE 78 IU/L (42-121); ALT ALANINE AMINOTRANSFERASE 20 IU/L (10-60); AST ASPARTATE AMINOTRANSFERASE 26 IU/L (10-42); BILIRUBIN,TOTAL 0.9 mg/dL (0.2-1.0); BUN - BLOOD UREA NITROGEN 28 mg/dL (6-20); CALCIUM 8.7 mg/dL (8.5-10.3); CARBON DIOXIDE - CO2 25 mmol/L (21-32); CHLORIDE 101 mmol/L (101-111); CHOL/HDL RATIO 2.4 (<5.0); CHOLESTEROL 112 mg/dL; CREATININE 0.8 mg/dL (0.6-1.2); GFR - MDRD 93 (>89); GLUCOSE 102 mg/dL (70-100); HDL CHOLESTEROL 46 mg/dL; LDL CHOLESTEROL,CALCULATED 55 mg/dL; LDL/HDL RATIO 1.2 (<3.6); POTASSIUM 4.1 mmol/L (3.5-5.0); SODIUM 134 mmol/L (135-145); TOTAL PROTEIN 7.1 g/dL (6.7-8.2); TRIGLYCERIDES 56 mg/dL; VLDL CHOLESTEROL 11 mg/dL
[2021-11-15 15:56] LABS: THYROID STIMULATING HORMONE 4.22 uIU/mL (0.34-5.60)
== END 2021-11-15 11:03 | disposition home or self-care (01) ==
LOC: LAB.S 11:02
PROVIDERS: ATTEND Internal Medicine
DX: Z13.220 Encounter for screening for lipoid disorders (principal); Z12.5 Encounter for screening for malignant neoplasm of prostate; E03.9 Hypothyroidism, unspecified; Z79.899 Other long term (current) drug therapy
CPT/HCPCS: 36415; 80053; 80061; 83721; 84153; 84443; 85025

== ENCOUNTER 2022-01-15 12:59 | Emergency (ER) | payer BC ==
--- NOTE | 2022-01-15 13:27 | ED Physician Documentation ---
PD HPI BACK PAIN - Stated complaint Stated Complaint: LOW BACK PX - Chief complaint Chief Complaint: Trauma Ch/Bk - History obtained from History obtained from: Patient - Additional information Additional information: About 3 days ago he was going down the stairs and slipped and fell and landed on his back and has severe back pain. Declines pain medication initial evaluation. Went to urgent care and was sent here for imaging. He has occasional numbness in the right hamstring, not currently. No other weakness, numbness, tingling, saddle anesthesia, or fevers. He has a long history of back pain. Including a fusion in the past. Review of Systems Constitutional: reports: Reviewed and negative Eyes: reports: Reviewed and negative Ears: reports: Reviewed and negative Nose: reports: Reviewed and negative Throat: reports: Reviewed and negative PD PAST MEDICAL HISTORY - Past Medical History Cardiovascular: Hypertension, High cholesterol, Other Respiratory: Asthma, Sleep apnea Neuro: None Endocrine/Autoimmune: None, HyPOthyroidism GI: GERD : None HEENT: Chronic hearing loss Psych: None Musculoskeletal: None - Past Surgical History Past Surgical History: Yes Cardiovascular: Coronary stent HEENT: Tonsil/Adenoidectomy - Present Medications Home Medications: Ambulatory Orders Medication Instructions Recorded Confirmed Fluticasone Furoate [Veramyst] 1 spr NS DAILY 12/18/13 09/01/18 Lansoprazole 30 mg PO DAILY 12/18/13 09/01/18 Levothyroxine Sodium [Synthroid] 100 mcg PO DAILY 12/18/13 09/01/18 Calcium Carbonate/Vitamin D3 1 tab PO DAILY 12/11/14 09/01/18 [Calcium 500 + D Tablet] Cholecalciferol (Vitamin D3) 2,000 mg PO DAILY 12/11/14 09/01/18 [Vitamin D3] Glucosam/Chond/Collagen/Hyalur 500 mg PO DAILY 12/11/14 09/01/18 [Glucosamine Chondroitin Cap] Melatonin 3 mg PO QPM 12/11/14 09/01/18 Acetaminophen/Cod 300/30 [Tylenol 1 each PO Q4-6H PRN 09/01/18 09/01/18 #3] Ascorbic Acid 500 mg PO DAILY 09/01/18 09/01/18 Aspirin [Aspirin EC] 81 mg PO DAILY 09/01/18 09/01/18 Atorvastatin Calcium 80 mg PO QPM 09/01/18 09/01/18 Clopidogrel Bisulfate [Clopidogrel] 75 mg PO DAILY 09/01/18 09/01/18 Fluticasone/Vilanterol [Breo 1 each IH DAILY 09/01/18 09/01/18 Ellipta 100-25 Mcg INH] Gabapentin 300 mg PO QID 09/01/18 09/01/18 Multivitamin [Multiple Vitamins] 1 each PO DAILY 09/01/18 09/01/18 Nitroglycerin 0.4 mg SL DAILY PRN 09/01/18 09/01/18 [place]-3/Dha/Epa/Fish Oil [[place] 3 1 each PO DAILY 09/01/18 09/01/18 500 Softgel] Triamcinolone 0.1% Cream [Kenalog 1 applic TOP BID 09/01/18 09/01/18 0.1% Cream] Urea 1 applic TP DAILY PRN 09/01/18 09/01/18 guaiFENesin [Mucinex] 600 mg PO DAILY 09/02/18 09/02/18 Losartan [Cozaar] 50 mg PO DAILY #90 tablet 09/03/18 - Allergies Allergies/Adverse Reactions: Allergies Allergy/AdvReac Type Severity Reaction Status Date / Time Sulfa (Sulfonamide Allergy Unknown Verified 01/15/22 13:18 Antibiotics) - Social History Does the pt smoke?: No Smoking Status: Never smoker Does the pt drink ETOH?: Yes Does the pt have substance abuse?: No - Immunizations Immunizations are current?: Yes - POLST Patient has POLST: Yes PD ED PE NORMAL - Vitals Vital signs reviewed: Yes - General General: Alert and oriented X 3, No acute distress - Back Back: Other (Mild lumbar spine tenderness lower. No pelvic tenderness or hip tenderness.) - Extremities Extremities: Other (The patient has equal and normal Achilles and patellar reflexes bilaterally. Normal sensation in all areas of the legs. Patient denies saddle anesthesia. Normal strength in flexion-extension at the ankles, knees, and flexion of the hips.) - Neuro Neuro: Alert and oriented X 3, Normal speech Results - Vitals Vitals: Vital Signs - 24 hr 01/15/22 01/15/22 13:13 13:18 Temperature 36.3 C L 36.3 C L Heart Rate 55 L 55 L Respiratory 16 16 Rate Blood Pressure 139/80 H 139/80 H O2 Saturation 97 97 Oxygen O2 Source Room air - Rads (name of study) CT lumbar spine Radiology: EMP read contemporaneously PD MEDICAL DECISION MAKING - ED course ED course: 81-year-old gentleman presents after a low back injury. CT showed no acute issues, but he does have a lot of degenerative changes and chronic findings. He declined any changes in his pain regimen. Departure - Departure Disposition: 01 Home, Self Care Clinical Impression: Lower back injury Qualifiers: Encounter type: initial encounter Qualified Code(s): S39.92XA - Unspecified injury of lower back, initial encounter Condition: Good Record reviewed to determine appropriate education?: Yes Instructions: ED Low Back Pain Injury Comments: CT of the lumbar spine did not demonstrate any new findings. You do have a terribly arthritic back but nothing that would have started with a fall the other day. Continue gabapentin. Return for new or worsening symptoms.
--- NOTE | 2022-01-15 14:56 | CT Report ---
PROCEDURE: CT lumbar spine without contrast INDICATIONS: back injury TECHNIQUE: Noncontrast 3 mm thick sections acquired from the T12 level to the sacrum. Sagittal and coronal refo rmats were constructed. For radiation dose reduction, the following was used: automated exposure co ntrol, adjustment of mA and/or kV according to patient size. COMPARISON: Lumbar spine x-ray 09/19/2016, MRI lumbar spine 04/29/2015 FINDINGS: Image quality: Excellent. Bones: There is normal bony alignment. No acute vertebral body compression fractures. Wedging of T 12 remains unchanged in prior exams. No suspicious lytic or blastic bony lesions. Central spinal mary iber is of normal overall caliber. No pars defects. T12-L1: Disc space narrowing and anterior osteophytes present. Posterior disc bulge and hypertrophic facet joints noted. Mild central and moderate bilateral foraminal stenosis. L1-L2: There is been interbody fusion and posterior osteophyte and hypertrophic facet joints resul ts in mild central stenosis. Moderate bilateral foraminal stenosis, right greater than left. L2-L3: Disc space narrowing with vacuum disc phenomena and anterior osteophyte present with circum ferential disc bulge with hypertrophic facet joints appear that is moderate central stenosis. Severe left and moderate right foraminal stenosis. L3-L4: Disc space narrowing with vacuum disc phenomenon and circumferential disc bulge noted. Mild to moderate central stenosis and hypertrophic facet joints present. Severe left and moderate right f oraminal stenosis L4-L5: Disc space narrowing with vacuum disc phenomena, circumferential disc bulge, and prior right laminotomy noted. Moderate central stenosis present. There is severe right and left foraminal stenos is. L5-S1: Disc space narrowing and circumferential disc bulge with hypertrophic facet joints present. Mild central stenosis. Severe bilateral foraminal stenosis. Soft tissues: No retroperitoneal masses or hematomas. Visualized aorta is normal in caliber. IMPRESSION: 1. No acute findings. No evidence of acute fracture or malalignment. 2. Multilevel degenerative disease and arthropathy results in varying degrees of central and foramina l stenosis including moderate central stenosis L3-4 and L4-5 as well as severe foraminal stenosis not ed lower lumbar spine Reviewed by: Wallace Drake MD on 01/15/2022 1:55 PM [facility] Approved by: Wallace Drake MD on 01/15/2022 1:55 PM [facility] Station ID: [id number]
[2022-01-15 15:16] VITALS: BP 134/64
== END 2022-01-15 15:15 | disposition home or self-care (01) ==
LOC: ED 12:59
DX: S39.92XA Unspecified injury of lower back, initial encounter (principal); W10.9XXA Fall (on) (from) unspecified stairs and steps, initial encounter; I10 Essential (primary) hypertension
CPT/HCPCS: 99283; 99284

== ENCOUNTER 2022-04-07 09:53 | Outpatient (CLI) | payer BC ==
[2022-04-07 17:53] LABS: BASOPHILS % (AUTO) 0.8 %; EOSINOPHILS # (AUTO) 0.1 10^3/uL (0.0-0.7); EOSINOPHILS % (AUTO) 2.5 %; HGB - HEMOGLOBIN 14.3 g/dL (14.0-18.0); LYMPHOCYTES % (AUTO) 20.2 %; MEAN CORPUSCULAR HEMOGLOBIN 32.5 pg (27.0-31.0); MEAN CORPUSCULAR HGB CONC 32.5 g/dL (32.0-36.0); MEAN PLATELET VOLUME 10.9 fL (7.4-11.4); MONOCYTES # (AUTO) 0.4 10^3/uL (0.0-1.0); MONOCYTES % (AUTO) 7.6 %; NEUTROPHILS # (AUTO) 3.5 10^3/uL (1.5-6.6); NEUTROPHILS % (AUTO) 68.7 %; PLT - PLATELET COUNT 159 10^3/uL (130-450); RED CELL DISTRIBUTION WIDTH 13.1 % (12.0-15.0); WHITE BLOOD COUNT 5.2 x10^3/uL (4.8-10.8)
[2022-04-07 18:14] LABS: ALBUMIN 4.1 g/dL (3.2-5.5); ALBUMIN/GLOBULIN RATIO 1.4 (1.0-2.2); BILIRUBIN,TOTAL 0.9 mg/dL (0.2-1.0); CALCIUM 8.9 mg/dL (8.5-10.3); CREATININE 0.9 mg/dL (0.6-1.2); POTASSIUM 4.4 mmol/L (3.5-5.0); TOTAL PROTEIN 7.1 g/dL (6.7-8.2)
== END 2022-04-07 09:54 | disposition home or self-care (01) ==
LOC: LAB.S 09:53
PROVIDERS: ATTEND Registered Nurse
DX: R23.8 Other skin changes (principal)
CPT/HCPCS: 36415; 80053; 83540; 84466; 85025; 85610

== ENCOUNTER 2022-04-09 12:44 | Outpatient (CLI) | payer BC ==
--- NOTE | 2022-04-09 13:58 | Ultrasound Report ---
PROCEDURE: Duplex Ext Veins Bilateral INDICATIONS: Bilateral lower leg pain. TECHNIQUE: Real-time imaging, as well as color and pulse Doppler interrogation, were performed of the deep veins of both legs from the inguinal ligament to the popliteal fossa. COMPARISON: None FINDINGS: The deep veins right and left lower extremities are normally compressible, and free of int raluminal thrombus. Color and pulse Doppler demonstrate normal phasic intravascular flow in the deep veins of the right and left lower extremities. There is normal augmentation response to distal comp ression maneuver in the deep veins of the right and left lower extremities. Thrombus identified in the superficial veins of the medial margin of the left calf compatible with silverio perficial thrombophlebitis. IMPRESSION: No evidence of deep vein thrombosis involving either the right or left lower extremities. Superficial thrombophlebitis involving the left calf. Reviewed by: Scarlet Carbone MD, PhD on 04/09/2022 1:56 PM PDT Approved by: Scarlet Carbone MD, PhD on 04/09/2022 1:56 PM PDT Station ID: [id number]
== END 2022-04-09 12:45 | disposition home or self-care (01) ==
LOC: DI 12:44
PROVIDERS: ATTEND Registered Nurse
DX: I80.02 Phlebitis and thrombophlebitis of superficial vessels of left lower extremity (principal); M79.661 Pain in right lower leg
CPT/HCPCS: 93970

== ENCOUNTER 2022-05-18 10:16 | Outpatient (CLI) | payer BC ==
--- NOTE | 2022-05-18 13:44 | Ultrasound Report ---
PROCEDURE: Duplex Ext Veins Left INDICATIONS: PAIN IN LEFT CALF TECHNIQUE: Real-time imaging, as well as color and pulse Doppler interrogation, were performed of the lower extr emity deep veins from the inguinal ligament to the popliteal fossa. COMPARISON: None. FINDINGS: The deep veins are normally compressible, and free of intraluminal thrombus. Color and pu lse Doppler demonstrate normal phasic intraluminal flow. There is normal augmentation response to di stal compression maneuver. Previously seen left GSV thrombus has resolved. IMPRESSION: 1. No DVT in the left lower extremity. 2. Resolution of superficial thrombophlebitis in the left GSV previously seen. Reviewed by: Sarkis Comer on 05/18/2022 1:42 PM PDT Approved by: Sarkis Comer on 05/18/2022 1:42 PM PDT Station ID: [id number]
== END 2022-05-18 10:17 | disposition home or self-care (01) ==
LOC: DI 10:16
PROVIDERS: ATTEND Physician Assistant
DX: M79.662 Pain in left lower leg (principal); Z86.72 Personal history of thrombophlebitis

== ENCOUNTER 2022-08-08 15:02 | Outpatient (CLI) | payer BC ==
--- NOTE | 2022-08-08 20:17 | XRAY Report ---
PROCEDURE: Shoulder 3 View RT INDICATIONS: PAIN OF RIGHT SHOULDER JOINT TECHNIQUE: 3 views of the shoulder were acquired. COMPARISON: CT angiogram right upper extremity 06/06/2021 FINDINGS: Bones: No acute fractures or dislocations. No suspicious bony lesions. Moderate degenerative mares es of the acromioclavicular and glenohumeral joints. Soft tissues: No suspicious soft tissue calcifications. IMPRESSION: 1. No acute osseous abnormality. 2. Degenerative changes of the glenohumeral and acromioclavicular joints. Reviewed by: Harish Bowles MD on 08/08/2022 8:15 PM PDT Approved by: Harish Bowles MD on 08/08/2022 8:15 PM PDT Station ID: [id number]
== END 2022-08-08 15:03 | disposition home or self-care (01) ==
LOC: DI.S 15:02
PROVIDERS: ATTEND Physician Assistant
DX: M19.011 Primary osteoarthritis, right shoulder (principal)

== ENCOUNTER 2023-01-21 08:20 | Outpatient (CLI) | payer BC ==
[2023-01-21 14:40] LABS: BASOPHILS % (AUTO) 0.7 %; EOSINOPHILS # (AUTO) 0.1 10^3/uL (0.0-0.7); EOSINOPHILS % (AUTO) 2.4 %; HCT - HEMATOCRIT 42.3 % (42.0-52.0); HGB - HEMOGLOBIN 14.2 g/dL (14.0-18.0); LYMPHOCYTES # (AUTO) 1.1 10^3/uL (1.5-3.5); MEAN CORPUSCULAR HEMOGLOBIN 32.1 pg (27.0-31.0); MEAN CORPUSCULAR HGB CONC 33.6 g/dL (32.0-36.0); MEAN CORPUSCULAR VOLUME 95.7 fL (80.0-94.0); MEAN PLATELET VOLUME 10.8 fL (7.4-11.4); MONOCYTES # (AUTO) 0.4 10^3/uL (0.0-1.0); MONOCYTES % (AUTO) 7.8 %; NEUTROPHILS # (AUTO) 3.7 10^3/uL (1.5-6.6); NEUTROPHILS % (AUTO) 68.9 %; PLT - PLATELET COUNT 159 10^3/uL (130-450); RED BLOOD COUNT 4.42 10^6/uL (4.70-6.10); RED CELL DISTRIBUTION WIDTH 12.8 % (12.0-15.0); WHITE BLOOD COUNT 5.4 x10^3/uL (4.8-10.8)
[2023-01-21 14:48] LABS: INR 1.1 (0.8-1.2); PT - PROTHROMBIN TIME 12.1 secs (9.9-12.6)
[2023-01-21 15:41] LABS: CALCIUM 8.6 mg/dL (8.5-10.3); CREATININE 0.7 mg/dL (0.6-1.2); POTASSIUM 4.3 mmol/L (3.5-5.0)
== END 2023-01-21 08:21 | disposition home or self-care (01) ==
LOC: LAB.S 08:20
PROVIDERS: ATTEND Internal Medicine Cardiovascular Disease
DX: I25.119 Atherosclerotic heart disease of native coronary artery with unspecified angina pectoris (principal)
CPT/HCPCS: 36415; 80048; 85025; 85610

== ENCOUNTER 2023-02-05 13:47 | Outpatient (CLI) | payer BC ==
--- NOTE | 2023-02-06 09:51 | XRAY Report ---
PROCEDURE: Chest 2 View X-Ray INDICATIONS: DYSPNEA ON EXERTION TECHNIQUE: 2 views of the chest were acquired. COMPARISON: Chest x-ray, 09/01/2018. FINDINGS: Surgical changes and devices: None. Lungs and pleura: Right diaphragmatic eventration. No pleural effusions or pneumothorax. Lungs are clear. Mediastinum: Mediastinal contours appear normal. Heart size is normal. Bones and chest wall: No suspicious bony lesions. Overlying soft tissues appear unremarkable. IMPRESSION: No acute cardiopulmonary disease. Reviewed by: Aureliano Padilla MD on 02/06/2023 9:49 AM PDT Approved by: Aureliano Padilla MD on 02/06/2023 9:49 AM PDT Station ID: [id number]
== END 2023-02-05 13:48 | disposition home or self-care (01) ==
LOC: DI.S 13:47
PROVIDERS: ATTEND Physician Assistant
DX: R06.09 Other forms of dyspnea (principal)

== ENCOUNTER 2023-06-29 08:00 | Outpatient (CLI) | payer BC | END 2023-06-29 23:59 | disposition home or self-care (01) | LOC: LAB 08:00 | PROVIDERS: ATTEND Physician Assistant Medical | DX: L08.89 Other specified local infections of the skin and subcutaneous tissue (principal); L72.3 Sebaceous cyst | CPT/HCPCS: 87070; 87077; 87205 ==

== ENCOUNTER 2023-08-21 08:35 | Day surgery (SDC) | payer BC ==
[2023-08-21] MEDS ORDERED: LACTATED RINGERS 1,000 ML IV ONE ×2 (09:03→10:44)
[2023-08-21] MEDS ORDERED: PROPOFOL 500 MG/50 ML 500 MG/50 ML VIAL ONE (09:27)
--- NOTE | 2023-08-21 09:46 | ANESTHESIA ---
Pre-Anesthesia VS, & Labs - Diagnosis SCREENING - Procedure colonoscopy Vital Signs: Temp Pulse Resp BP Pulse Ox O2 Flow Rate 36 C L 46 L 18 146/74 H 96 08/21/23 09:05 08/21/23 09:05 08/21/23 09:05 08/21/23 09:05 08/21/23 09:05 Height: 5 ft 11 in Weight (kg): 134.3 kg Body Mass Index: 41.3 BMI Classification: Morbidly Obese - NPO >8 hours - Lab Results Lab results reviewed: Yes Home Medications and Allergies Home Medications: Ambulatory Orders Cholecalciferol [Vitamin D3] 5,000 unit PO DAILY 08/20/23 Docusate Sodium 100Mg Capsule [Colace 100Mg Capsule] 100 mg PO ONCE 08/20/23 Ipratropium [place] 30 ml NS DAILY 08/20/23 Meloxicam 15 mg PO DAILY 08/20/23 Metoprolol Tartrate [Lopressor] 25 mg PO DAILY 08/20/23 Tiotropium [place] [Spiriva Respimat] 2.5 mg INH DAILY 08/20/23 amLODIPine [Norvasc] 5 mg PO ONCE 08/20/23 Fluticasone Furoate [Veramyst] 1 spr NS DAILY 12/18/13 Lansoprazole 30 mg PO DAILY 12/18/13 Levothyroxine Sodium [Synthroid] 100 mcg PO DAILY 12/18/13 Calcium Carbonate/Vitamin D3 [Calcium 500 + D Tablet] 1 tab PO DAILY 12/11/14 Cholecalciferol (Vitamin D3) [Vitamin D3] 2,000 mg PO DAILY 12/11/14 Glucosam/Chond/Collagen/Hyalur [Glucosamine Chondroitin Cap] 500 mg PO DAILY 12/11/14 Melatonin 3 mg PO QPM 12/11/14 Acetaminophen/Cod 300/30 [Tylenol #3] 1 each PO Q4-6H PRN 09/01/18 Ascorbic Acid 500 mg PO DAILY 09/01/18 Aspirin [Aspirin EC] 81 mg PO DAILY 09/01/18 Atorvastatin Calcium 80 mg PO QPM 09/01/18 Clopidogrel Bisulfate [Clopidogrel] 75 mg PO DAILY 09/01/18 Fluticasone/Vilanterol [Breo Ellipta 100-25 Mcg INH] 1 each IH DAILY 09/01/18 Gabapentin 300 mg PO QID 09/01/18 Multivitamin [Multiple Vitamins] 1 each PO DAILY 09/01/18 Nitroglycerin 0.4 mg SL DAILY PRN 09/01/18 [place]-3/Dha/Epa/Fish Oil [[place] 3 500 Softgel] 1 each PO DAILY 09/01/18 Triamcinolone 0.1% Cream [Kenalog 0.1% Cream] 1 applic TOP BID 09/01/18 Urea 1 applic TP DAILY PRN 09/01/18 guaiFENesin [Mucinex] 600 mg PO DAILY 09/02/18 Cholecalciferol [Vitamin D3] 5,000 unit PO DAILY 08/20/23 Docusate Sodium 100Mg Capsule [Colace 100Mg Capsule] 100 mg PO ONCE 08/20/23 Ipratropium [place] 30 ml NS DAILY 08/20/23 Meloxicam 15 mg PO DAILY 08/20/23 Metoprolol Tartrate [Lopressor] 25 mg PO DAILY 08/20/23 Tiotropium [place] [Spiriva Respimat] 2.5 mg INH DAILY 08/20/23 amLODIPine [Norvasc] 5 mg PO ONCE 08/20/23 Allergies/Adverse Reactions: Allergies Allergy/AdvReac Type Severity Reaction Status Date / Time Sulfa (Sulfonamide Allergy Unknown Verified 08/21/23 09:22 Antibiotics) Anes History & Medical History - Anesthetic History Anesthesia Complications: reports: No previous complications Family history of Anesthesia Complications: Denies Family history of Malignant Hyperthermia: Denies - Medical History Cardiovascular: reports: Hypertension, High cholesterol, [place] (2018, s/p stent, no issues since, reports good health) Pulmonary: reports: Asthma, Sleep apnea Gastrointestinal: reports: GERD (w/c) Urinary: reports: None Neuro: reports: None Musculoskeletal: reports: None Endocrine/Autoimmune: reports: HyPOthyroidism Blood Disorders: reports: None Smoking Status: Never smoker Psychosocial: reports: Alcohol - Surgical History General: reports: Cholecystectomy Eyes Ears Nose Throat (EENT): reports: Tonsil/Adenoidectomy Cardiothoracic: reports: Coronary stent Exam General: Alert, Oriented x3, Cooperative Dental: WNL Mouth Openin Fingerbreadth Neck Mobility: Normal Mallampati classification: II Thyromental Distance: 4-6 cm Respiratory: Lungs clear Cardiovascular: Regular rate Plan Anesthesia Type: Total IV Consent for Procedure(s) Verified and Reviewed: Yes Code Status: Attempt Resuscitation ASA classification: 3-Severe systemic disease Is this case an emergency?: No
[2023-08-21] MEDS ORDERED: PROPOFOL 200 MG/20 ML VIAL IVP ONE (10:17)
[2023-08-21 11:17] VITALS: BP 136/71; O2SAT 94
--- NOTE | 2023-08-21 20:11 | ANESTHESIA POST OP EVALUATION ---
Anesthesia Post Eval - Post Anesthesia Eval Vitals: Last Vital Signs Temp 36.2 C L 08/21/23 10:44 Pulse 57 L 08/21/23 11:08 Resp 16 08/21/23 11:08 BP 136/71 H 08/21/23 11:08 Pulse Ox 94 08/21/23 11:08 O2 Flow Rate CV Function Including HR & BP: Stable Pain Control: Satisfactory Nausea & Vomiting: Negative Mental Status: Baseline Respiratory Status: Airway Patent Hydration Status: Satisfactory Anesthesia Complications: None
== END 2023-08-21 08:36 | disposition home or self-care (01) ==
LOC: SDS 08:35
PROVIDERS: ATTEND Surgery
PROC: 0DBL8ZZ Excision of Transverse Colon, Via Natural or Artificial Opening Endoscopic (ICD-10-PCS; 2023-08-21)
PROC: 0DBP8ZZ Excision of Rectum, Via Natural or Artificial Opening Endoscopic (ICD-10-PCS; 2023-08-21)
PROC: 0DBM8ZZ Excision of Descending Colon, Via Natural or Artificial Opening Endoscopic (ICD-10-PCS; 2023-08-21)
PROC: 0DBH8ZZ Excision of Cecum, Via Natural or Artificial Opening Endoscopic (ICD-10-PCS; principal; 2023-08-21 09:45)
DX: Z12.11 Encounter for screening for malignant neoplasm of colon (principal); R19.5 Other fecal abnormalities; D12.3 Benign neoplasm of transverse colon; D12.0 Benign neoplasm of cecum; K62.1 Rectal polyp; K63.5 Polyp of colon; K64.1 Second degree hemorrhoids; K57.30 Diverticulosis of large intestine without perforation or abscess without bleeding; E66.01 Morbid (severe) obesity due to excess calories; Z68.41 Body mass index [BMI] 40.0-44.9, adult; J44.9 Chronic obstructive pulmonary disease, unspecified; J43.9 Emphysema, unspecified; Z87.891 Personal history of nicotine dependence
CPT/HCPCS: 45380; 45385; J7120

== ENCOUNTER 2023-08-21 23:43 | Outpatient (CLI) | payer BC | END 2023-08-21 23:44 | disposition critical access hospital (66) | LOC: EMS 23:43 | DX: K62.5 Hemorrhage of anus and rectum (principal); R55 Syncope and collapse; R31.9 Hematuria, unspecified; Z79.02 Long term (current) use of antithrombotics/antiplatelets | CPT/HCPCS: A0425; A0427 ==

== ENCOUNTER 2023-08-22 00:15 | Inpatient (IN) | payer MEDICARE, BC ==
--- NOTE | 2023-08-22 00:30 | ED Physician Documentation ---
History of Present Illness - Stated complaint Stated Complaint: RECTAL BLEED - History obtained from History obtained from: Patient, EMS - Additonal information Additional information: 83-year-old male with history of coronary artery disease, COPD, presents status post colonoscopy with Dr. Crane today. Patient was not supposed to take his Plavix 75 mg but accidentally did when he got home and is having multiple bright red blood per rectum episodes and some lightheadedness. He had 5 large bloody bowel movements since colonoscopy earlier today and states he is actively having large volume BRBPR. EMS reported patient was hypotensive in the field with BP 70s/50s. PD PAST MEDICAL HISTORY - Past Medical History Cardiovascular: Hypertension, High cholesterol, [place] (2018, s/p stent, no issues since, reports good health) Respiratory: Asthma, Sleep apnea Neuro: None Endocrine/Autoimmune: HyPOthyroidism GI: GERD (w/c) : None HEENT: Chronic hearing loss Psych: None Musculoskeletal: None - Past Surgical History Past Surgical History: Yes General: Cholecystectomy Cardiovascular: Coronary stent HEENT: Tonsil/Adenoidectomy - Present Medications Home Medications: Ambulatory Orders Medication Instructions Recorded Confirmed Fluticasone Furoate [Veramyst] 1 spr NS DAILY 12/18/13 08/21/23 Lansoprazole 30 mg PO DAILY 12/18/13 09/01/18 Levothyroxine Sodium [Synthroid] 100 mcg PO DAILY 12/18/13 08/21/23 Calcium Carbonate/Vitamin D3 1 tab PO DAILY 12/11/14 08/21/23 [Calcium 500 + D Tablet] Cholecalciferol (Vitamin D3) 2,000 mg PO DAILY 12/11/14 09/01/18 [Vitamin D3] Glucosam/Chond/Collagen/Hyalur 500 mg PO DAILY 12/11/14 08/21/23 [Glucosamine Chondroitin Cap] Melatonin 3 mg PO QPM 12/11/14 08/21/23 Acetaminophen/Cod 300/30 [Tylenol 1 each PO Q4-6H PRN 09/01/18 09/01/18 #3] Ascorbic Acid 500 mg PO DAILY 09/01/18 08/21/23 Aspirin [Aspirin EC] 81 mg PO DAILY 09/01/18 08/21/23 Atorvastatin Calcium 80 mg PO QPM 09/01/18 08/21/23 Clopidogrel Bisulfate [Clopidogrel] 75 mg PO DAILY 09/01/18 08/21/23 Fluticasone/Vilanterol [Breo 1 each IH DAILY 09/01/18 09/01/18 Ellipta 100-25 Mcg INH] Gabapentin 300 mg PO QID 09/01/18 09/01/18 Multivitamin [Multiple Vitamins] 1 each PO DAILY 09/01/18 08/21/23 Nitroglycerin 0.4 mg SL DAILY PRN 09/01/18 08/21/23 [place]-3/Dha/Epa/Fish Oil [[place] 3 1 each PO DAILY 09/01/18 08/21/23 500 Softgel] Triamcinolone 0.1% Cream [Kenalog 1 applic TOP BID 09/01/18 08/21/23 0.1% Cream] Urea 1 applic TP DAILY PRN 09/01/18 08/21/23 guaiFENesin [Mucinex] 600 mg PO DAILY 09/02/18 08/21/23 Losartan [Cozaar] 50 mg PO DAILY #90 tablet 09/03/18 08/21/23 Cholecalciferol [Vitamin D3] 5,000 unit PO DAILY 08/20/23 08/21/23 Docusate Sodium 100Mg Capsule 100 mg PO ONCE 08/20/23 08/21/23 [Colace 100Mg Capsule] Ipratropium [place] 30 ml NS DAILY 08/20/23 08/21/23 Meloxicam 15 mg PO DAILY 08/20/23 08/21/23 Metoprolol Tartrate [Lopressor] 25 mg PO DAILY 08/20/23 08/21/23 Tiotropium [place] [Spiriva 2.5 mg INH DAILY 08/20/23 08/21/23 Respimat] amLODIPine [Norvasc] 5 mg PO ONCE 08/20/23 08/21/23 - Allergies Allergies/Adverse Reactions: Allergies Allergy/AdvReac Type Severity Reaction Status Date / Time Sulfa (Sulfonamide Allergy Unknown Verified 08/22/23 00:20 Antibiotics) - Social History Does the pt smoke?: No Smoking Status: Never smoker Does the pt drink ETOH?: Yes Does the pt have substance abuse?: No - Immunizations Immunizations are current?: Yes - POLST Patient has POLST: Yes PD ED PE NORMAL - Vitals Vital signs reviewed: Yes - General General: Alert and oriented X 3, Other (pale appearing) - HEENT HEENT: Atraumatic, PERRL, EOMI - Cardiac Cardiac: RRR - Respiratory Respiratory: No respiratory distress, Clear bilaterally - Abdomen Abdomen: Non tender, Non distended - Rectal Rectal: Other (active passage of large volume BRBPR with large clots) - Derm Derm: Normal color, Warm and dry - Extremities Extremities: No deformity Results - Vitals Vitals: Vital Signs - 24 hr 08/22/23 08/22/23 08/22/23 00:20 00:23 00:44 Temperature 36.8 C 36.8 C 36.7 C Heart Rate 55 L 55 L 49 L Respiratory 16 14 13 Rate Blood Pressure 104/56 L 104/56 L 94/56 L O2 Saturation 98 98 98 If not protocol 0 : Oxygen Flow, liters/minute 08/22/23 08/22/23 08/22/23 00:48 00:53 00:56 Temperature Heart Rate 53 L 52 L 53 L Respiratory 16 14 13 Rate Blood Pressure 92/56 L 129/74 129/74 O2 Saturation 98 100 100 If not protocol 2 2 : Oxygen Flow, liters/minute 08/22/23 01:00 Temperature 36.8 C Heart Rate 48 L Respiratory 13 Rate Blood Pressure 120/68 O2 Saturation 100 If not protocol 2 : Oxygen Flow, liters/minute Oxygen O2 Source Nasal cannula - Labs Labs: Laboratory Tests 08/22/23 08/22/23 08/22/23 00:26 00:26 00:26 WBC 12.1 H RBC 3.33 L Hgb 10.5 L Hct 31.6 L MCV 94.9 H MCH 31.5 H MCHC 33.2 RDW 13.1 Plt Count 196 MPV 10.8 Neut # (Auto) 10.0 H Lymph # (Auto) 1.3 L [place] # (Auto) 0.6 Eos # (Auto) 0.1 Baso # (Auto) 0.1 Absolute Nucleated RBC 0.00 Nucleated RBC % 0.0 PT 13.8 H INR 1.3 H APTT 22.2 L Sodium 135 Potassium 4.1 Chloride 104 Carbon Dioxide 27 Anion Gap 4.0 L BUN 17 Creatinine 1.0 Estimated GFR (MDRD) 72 L Glucose 128 H Calcium 7.9 L Total Bilirubin 0.4 AST 16 ALT 13 Alkaline Phosphatase 68 Total Protein 5.4 L Albumin 3.2 Globulin 2.2 Albumin/Globulin Ratio 1.5 Lipase 17 PD Medical Decision Making - ED course ED course: 83yM presents to the ED with BRBPR with large volume blood clots since colonoscopy 08/21/[address] Alvarez. Patient accidentally took his home 75mg plavix despite it being on hold for procedure. Hypotensive on arrival 70/50 with active BRBPR and passage of large clots. Contacted Dr. Tran, surgeon transcription who is on his way. BL PRBC initiated and will also hang platelets. CBC, abdominal panel, coags, type and screen ordered. 12:50am - Dr. Ortiz at bedside. 2U PRBC infusing via pressure bags. [address] IV[address] in [address]. recommending continue blood product management/medical management. Will consider CTA if patient has any more active bleeding. Endoscopy in AM as a last resort. Per bloodbank we have no platelets. 2-4 hours till they arrive. FFP thawing and will be ready in 45 min. d/w telehealth who will admit to ICU with Dr. Ortiz consulting. - Critical Care Time(min): 30 Time Includes: Direct patient care, Review records, Reassess patient, Document care, Coordinate care, Medical consult (surgical consult) Data interpretation: Labs, Pulse ox Procedures included in critical care time: Peripheral IV (ultrasound guided PIV), Blood draw Departure - Departure Disposition: 66 [facility] DC/Xfer Clinical Impression: Lower GI bleed, Lightheadedness Condition: Serious
[2023-08-22 00:40] LABS: BASOPHILS # (AUTO) 0.1 10^3/uL (0.0-0.1); BASOPHILS % (AUTO) 0.5 %; EOSINOPHILS # (AUTO) 0.1 10^3/uL (0.0-0.7); EOSINOPHILS % (AUTO) 0.7 %; HCT - HEMATOCRIT 31.6 % (42.0-52.0); HGB - HEMOGLOBIN 10.5 g/dL (14.0-18.0); LYMPHOCYTES # (AUTO) 1.3 10^3/uL (1.5-3.5); LYMPHOCYTES % (AUTO) 10.6 %; MEAN CORPUSCULAR HEMOGLOBIN 31.5 pg (27.0-31.0); MEAN CORPUSCULAR HGB CONC 33.2 g/dL (32.0-36.0); MEAN CORPUSCULAR VOLUME 94.9 fL (80.0-94.0); MEAN PLATELET VOLUME 10.8 fL (7.4-11.4); MONOCYTES # (AUTO) 0.6 10^3/uL (0.0-1.0); PLT - PLATELET COUNT 196 10^3/uL (130-450); RED BLOOD COUNT 3.33 10^6/uL (4.70-6.10); RED CELL DISTRIBUTION WIDTH 13.1 % (12.0-15.0); WHITE BLOOD COUNT 12.1 x10^3/uL (4.8-10.8)
[2023-08-22 01:11] LABS: PARTIAL THROMBOPLASTIN TIME 22.2 secs (24.9-33.3)
[2023-08-22 01:13] LABS: ALBUMIN 3.2 g/dL (3.2-5.5); ALBUMIN/GLOBULIN RATIO 1.5 (1.0-2.2); BILIRUBIN,TOTAL 0.4 mg/dL (0.2-1.0); CALCIUM 7.9 mg/dL (8.5-10.3); POTASSIUM 4.1 mmol/L (3.5-4.5); TOTAL PROTEIN 5.4 g/dL (6.4-8.9)
[2023-08-22 01:16] LABS: INR 1.3 (0.8-1.2); PT - PROTHROMBIN TIME 13.8 secs (9.9-12.6)
--- NOTE | 2023-08-22 01:19 | CONSULTATION NOTE ---
Surgery Consult - Admit Date Hospital Admission Date: 08/22/23 - Consult Date Consult Date: 08/22/23 Requesting Provider: Dr. Pickett - Chief Complaint Chief Complaint: Rectal bleeding - Home Meds/Allergies Home Medications: Patient History Medication Instructions Recorded Confirmed Fluticasone Furoate [Veramyst] 1 spr NS DAILY 12/18/13 08/21/23 Lansoprazole 30 mg PO DAILY 12/18/13 09/01/18 Levothyroxine Sodium [Synthroid] 100 mcg PO DAILY 12/18/13 08/21/23 Calcium Carbonate/Vitamin D3 1 tab PO DAILY 12/11/14 08/21/23 [Calcium 500 + D Tablet] Cholecalciferol (Vitamin D3) 2,000 mg PO DAILY 12/11/14 09/01/18 [Vitamin D3] Glucosam/Chond/Collagen/Hyalur 500 mg PO DAILY 12/11/14 08/21/23 [Glucosamine Chondroitin Cap] Melatonin 3 mg PO QPM 12/11/14 08/21/23 Acetaminophen/Cod 300/30 [Tylenol 1 each PO Q4-6H PRN 09/01/18 09/01/18 #3] Ascorbic Acid 500 mg PO DAILY 09/01/18 08/21/23 Aspirin [Aspirin EC] 81 mg PO DAILY 09/01/18 08/21/23 Atorvastatin Calcium 80 mg PO QPM 09/01/18 08/21/23 Clopidogrel Bisulfate [Clopidogrel] 75 mg PO DAILY 09/01/18 08/21/23 Fluticasone/Vilanterol [Breo 1 each IH DAILY 09/01/18 09/01/18 Ellipta 100-25 Mcg INH] Gabapentin 300 mg PO QID 09/01/18 09/01/18 Multivitamin [Multiple Vitamins] 1 each PO DAILY 09/01/18 08/21/23 Nitroglycerin 0.4 mg SL DAILY PRN 09/01/18 08/21/23 [place]-3/Dha/Epa/Fish Oil [[place] 3 1 each PO DAILY 09/01/18 08/21/23 500 Softgel] Triamcinolone 0.1% Cream [Kenalog 1 applic TOP BID 09/01/18 08/21/23 0.1% Cream] Urea 1 applic TP DAILY PRN 09/01/18 08/21/23 guaiFENesin [Mucinex] 600 mg PO DAILY 09/02/18 08/21/23 Cholecalciferol [Vitamin D3] 5,000 unit PO DAILY 08/20/23 08/21/23 Docusate Sodium 100Mg Capsule 100 mg PO ONCE 08/20/23 08/21/23 [Colace 100Mg Capsule] Ipratropium [place] 30 ml NS DAILY 08/20/23 08/21/23 Meloxicam 15 mg PO DAILY 08/20/23 08/21/23 Metoprolol Tartrate [Lopressor] 25 mg PO DAILY 08/20/23 08/21/23 Tiotropium [place] [Spiriva 2.5 mg INH DAILY 08/20/23 08/21/23 Respimat] amLODIPine [Norvasc] 5 mg PO ONCE 08/20/23 08/21/23 Allergies/Adverse Reactions: Allergies Allergy/AdvReac Type Severity Reaction Status Date / Time Sulfa (Sulfonamide Allergy Unknown Verified 08/22/23 00:20 Antibiotics) - Vital Signs Vital Signs: Last Vital Signs Temp 98.2 F 08/22/23 01:00 Pulse 48 L 08/22/23 01:00 Resp 13 08/22/23 01:00 BP 120/68 08/22/23 01:00 Pulse Ox 100 08/22/23 01:00 O2 Flow Rate 2 08/22/23 01:00 Intake & Output: Intake & Output 08/19/23 08/20/23 08/21/23 08/22/23 23:59 23:59 23:59 23:59 Intake Total 300 Balance 300 - Lab Results Result Diagrams: 08/22/23 01:47 08/22/23 00:26 - Consultation Note Consultation Note: General Surgery Consultation Note Assessment: 1) Acute lower GI blood loss due to post-polypectomy bleeding. 2) CAD, s/p stent placement, on Plavix and Aspirin Recommendation: 1) Continue aggressive blood product infusion with PRBC, Platelets, FFP 2) Transfer to ICU for continued medical management when stable - Telehospitalist has been contacted and will be the admitting physician 3) If bleeding does not cease with use of FFP and platelets, (continued need for blood products, continued rectal bleeding, hemodynamic instability), a limited golytely bowel prep (4 liters orally) can be administered followed by colonoscopy with an attempt to localize and stop the bleed. Consider transfer to a tertiary care center for angiography and embolization if colonoscopy is unsuccessful. If transfer not possible and patient continues to exsanguinate, limited (if we know which portion of the colon is bleeding) or sub-total colectomy will be required. 4) Surgery will follow Addendum (02:25) 00:26 - H&H prior to 2 units of PRBC was 10.5/31.6; INR 1.3; Plt 196k 01:47 - H&H after 2 units PRBC = 10.9/32 I met his and updated her on Tyron's condition and our strategy to mange his bleeding. <><><><><><><><><><> Reason for Consultation Hematochezia after colonoscopy/multiple polypectomy Chief Complaint Rectal bleeding after colonoscopy procedure RAQUEL Ackerman is an 83 year old male who underwent screening colonoscopy yesterday morning. Six polyps were removed (Cecum, Hepatic flexure, Transverse colon, Descending colon, Recto-sigmoid, Rectum) all with either cold biopsy or snare cautery. The largest was sessile, about 10-15 mm in size and located in the cecum. Diverticulosis of the sigmoid colon was also noted. Around noon yesterday he started to notice bright red blood and clots from the rectum. This persisted all afternoon and by the late evening he was getting worried enough to call for an ambulance that brought him to the ED. In the ED he was actively passing blood and clots from the rectum and his BP was 70/40 (MAP 60). Two large bore IV's were placed, he was positioned in Trendelenberg on the gurney, and two units of O+ blood were rapidly infused. He remained conversant and cooperative throughout the resuscitation and never complained of SOB or chest pain. He never became tachycardic and his blood pressure after the two units elevated to 120/80. I was asked to assist in his evaluation and management and recommended that he be admitted to the ICU for continued medical management of this post-polypectomy bleed and that he be transfused platelets and FFP along with additional PRBC's. Past Medical History HTN, Hyperlipidemia, S/P [place] with stent placement Hypothyroidism, Sleep apnea Past Surgical History CS 08/21/232017 coronary stent Back surgery Open cholecystectomy Social History - Cig; + ETOH (no abuse) Current Medications See "Medication" section Allergies Sulfa ROS Pertinent positives Rectal blood loss All other reviewed systems negative Physical Examination Vital Signs: See "Vital Signs" section BMI: 40 GENERAL APPEARANCE: Elderly male, normal development, BMI 39 PSYCHIATRIC: AAO; Normal mentation and answers questions easily; No abdominal pain EYES: Pupils equal, round and reactive to light, sclera anicteric EARS, NOSE, MOUTH, THROAT: Hearing normal, Oral mucous membranes moist and without lesions; NECK: No crepitus, lymphadenopathy, or thyromegaly LUNGS: Clear to auscultation without wheezing; No use of accessory muscles to breathe CARDIOVASCULAR: Heart-NSR without murmurs ABD: Soft, non-tender, non-distended LYMPHATIC: Neck, Axillae, Groin no palpable adenopathy EXTREMITIES: No clubbing, cyanosis, infections SKIN: Anicteric; No rashes, lesions, Ulcerations RECTUM: Dark blood and clots from rectum Labs See "Labs" section Antibiotics: N/A VTEP: N/A Imaging N/A Joe Ortiz MD, [facility] General Surgery Service [phone]
[2023-08-22] MEDS ORDERED: SODIUM CHLORIDE FLUSH 0.9% 10 ML SYRINGE IVP PRN (01:38)
[2023-08-22 01:54] LABS: HGB - HEMOGLOBIN 10.9 g/dL (14.0-18.0)
[2023-08-22] MEDS: PANTOPRAZOLE 40 MG VIAL IVP SCH (02:13)
[2023-08-22] MEDS: LACTATED RINGERS 1,000 ML IV SCH ×3 (02:19→17:25)
--- NOTE | 2023-08-22 02:30 | HISTORY & PHYSICAL EXAMINATION ---
History and Physical - History and Physical Bright red blood per rectum 83-year-old male with history of coronary artery disease, COPD, HTN, who presents to ED status post colonoscopy yesterday with a chief complaint of bright red blood per rectum. Patient apparently was not supposed to take his Plavix 75 mg but accidentally did when he got home and is having multiple bright red blood per rectum episodes and lightheadedness. He had 5 large bloody bowel movements since colonoscopy earlier yesterday and states that he is actively having large volume BRBPR. EMS reported patient was hypotensive on the field with BP 70s/50s.patient continued to have bright red blood per rectum when I observed the patienton maximilianocarlotaju .He was noted to be hypotensive on presentation with systolic blood pressure 70s, patient was type and screen with rapid transfusion protocol. Received two units of PRBC and blood pressure improve to systolic 120. CBC which was sent came back with hemoglobin of about 10 his baseline is normal. Patient is otherwise awake and alert verbalizing. Patient was seen by surgery in the emergency room recommended admission to ICU and patient will be scoped in the morning. No fever no chills no nausea no vomiting no hematemesis no hemoptysis no hematuria. Patient appears very pale i will say. Past medical history hypertension coronary artery disease COPD Allergic to sulfur Please see medication list surgical history cholecystectomy left heart Status was stent placement Social no smoking, location alcohol Physical exam vital signs blood pressure 120/68, heart rate 68 respiratory 18 afebrile patient appears very pale speaking full sentences does not appear to be in any acute distress HEENT normocephalic atraumatic chest good air entry bilateral no wheezes no crackles cardiovascular regular rate and rhythm, abdomen soft no tenderness extremities no edema no ulcers no cyanosis neurological patient is awake and alert skin very pale Assessment This is an 83 year old with above-mentioned medical problems as enumerated with status post polypectomy with removal of multiple polyps over six on blood thinn ers who accidentally took his Plavix was on aspirin presenting with bright red blood per rectum,hypotensive. Acute Hemorrhagic shock Acute G.I. bleed Acute blood loss anemia Status post colonoscopy polypectomy COPD Hypertension Coronary artery disease Plan patient will be admitted to intensive care unit IV fluid resuscitation currently on LR 125 ML per hour rapid blood transfusion protocol vitals as Per ICU protocol IV access patient will be NPO for now surgery plan endoscopy in the morning patient type and screen transfuse additional two units prbc. H&H Q6 hours times 24hrs transfuse to maintain hemoglobin greater than 10 patient receiving two units FFP one unit platelets ordered Protonix 40 mg IV Q 12 hours avoid antiplatelets, anticoagulation DVT prophylaxis SCD plan discussed with patient, nursing at the bedside patient evaluated via Zoom technology with assistance from nursing at the bedside and ED attending. addendum I was notified by nurse from ICU patient was hypotensive again with systolic blood pressure 59/39.patient was dizzy bradycardic will start patient on dopamine titrate to maintain MAP greater than 65 IV fluid bolus with LR 1 L continue fluids with LR 125ml/hr. order to transfuse the remaining two units PRBC CCT 45 mins
[2023-08-22] MEDS ORDERED: SODIUM CHLORIDE 0.9% 500 ML IV STA (03:11)
[2023-08-22] MEDS ORDERED: SODIUM CHLORIDE 0.9% 500 ML IV ONE (03:12)
[2023-08-22] MEDS: DOPamine 400 MG/250 ML 400 MG/250 ML BAG IV SCH ×2 (03:32→09:44)
[2023-08-22] MEDS ORDERED: LACTATED RINGERS 1,000 ML IV ONE (03:44)
[2023-08-22 03:55] LABS: BASOPHILS % (AUTO) 0.3 %; EOSINOPHILS % (AUTO) 0.1 %; HCT - HEMATOCRIT 28.5 % (42.0-52.0); HGB - HEMOGLOBIN 9.4 g/dL (14.0-18.0); LYMPHOCYTES # (AUTO) 0.7 10^3/uL (1.5-3.5); LYMPHOCYTES % (AUTO) 6.1 %; MEAN CORPUSCULAR HEMOGLOBIN 31.4 pg (27.0-31.0); MEAN CORPUSCULAR VOLUME 95.3 fL (80.0-94.0); MEAN PLATELET VOLUME 10.3 fL (7.4-11.4); MONOCYTES # (AUTO) 0.4 10^3/uL (0.0-1.0); MONOCYTES % (AUTO) 3.3 %; NEUTROPHILS # (AUTO) 9.7 10^3/uL (1.5-6.6); NEUTROPHILS % (AUTO) 89.7 %; PLT - PLATELET COUNT 133 10^3/uL (130-450); RED BLOOD COUNT 2.99 10^6/uL (4.70-6.10); RED CELL DISTRIBUTION WIDTH 13.7 % (12.0-15.0); WHITE BLOOD COUNT 10.8 x10^3/uL (4.8-10.8)
[2023-08-22 04:15] LABS: CALCIUM 7.4 mg/dL (8.5-10.3); CREATININE 1.2 mg/dL (0.6-1.3); POTASSIUM 4.4 mmol/L (3.5-4.5)
[2023-08-22] MEDS ORDERED: PEG 3350/NA SULF,BICARB,CL/KCL 4,000 ML BOTTLE PO ONE (07:02)
[2023-08-22] MEDS ORDERED: EPINEPHrine 1 MG/ML AMP ONE (07:26)
[2023-08-22] MEDS ORDERED: THROMBIN (RECOMBINANT) 5,000 UNIT VIAL TOP ONE (07:26)
[2023-08-22] MEDS ORDERED: SODIUM CHLORIDE 0.9% 10 ML VIAL IVP ONE (07:27)
--- NOTE | 2023-08-22 07:38 | PROVIDER PROGRESS NOTE ---
Progress Note General Surgery Progress Note S: Tyron is awake and comfortable and tells me that his lower GI bleeding has decreased but not completely stopped. The nursing staff confirms this. He has no chest pain or SOB. he has no abdominal pain. O: VS P 102; BP 88/54 - pressures have been soft most of the evening. AAO; Mentating well; Abdomen is soft; Labs: 0700 H&H 28.5/9.4 Meds: Low dose dopamine drip Patient has received 3 U PRBC, 2 U FFP, 1 U platelets. His 4th unit is starting now A: Post-polypectomy colonic bleeding. The patient has been partially resuscitated and requires additional PRBC to catch up to what he lost yesterday. He may be still oozing and I feel that colonoscopy is required given the persistent hypotension P: 4 liters of go-lytely to start orally immediately. Once he completes the limited prep, diagnostic colonoscopy with the intent to identify and manage the bleeding source will be offered this morning. In the meantime, blood product support will continue. Consent: Tyron and his have been counselled for the procedure, the indications, risks, and expected outcome. They understand that there is an increased risk of bowel injury due to presence of dark blood in the colon which we expect to be minimized by the prep. Clips, cautery, injection therapy are available to manage any bleeding site. They understand that if endoscopic control of the bleeding site is not possible, transfer to a tertiary care facility will be attempted for angiographic embolization. Limited colectomy based upon the bleeding site found during colonoscopy will be offered as a life-saving procedure if timely transfer can not be arranged. Joe Ortiz MD General Surgery Service
--- NOTE | 2023-08-22 08:52 | ANESTHESIA ---
Pre-Anesthesia VS, & Labs - Diagnosis Lower GI bleed. s/p polypectomy - Procedure colonoscopy Vital Signs: Temp Pulse Resp BP Pulse Ox O2 Flow Rate 36.7 C 101 H 14 107/55 L 98 2 08/22/23 07:39 08/22/23 08:15 08/22/23 08:15 08/22/23 08:15 08/22/23 08:15 08/22/23 08:15 Height: 5 ft 10 in Weight (kg): 131.5 kg Body Mass Index: 41.5 BMI Classification: Morbidly Obese - NPO Other Last Fluid Intake: Golyte 1 gallon - Lab Results Current Lab Results: Laboratory Tests 08/22/23 03:42: Sodium 137, Potassium 4.4, Chloride 107, Carbon Dioxide 25, Anion Gap 5.0 L, BUN 19, Creatinine 1.2, Estimated GFR (MDRD) 58 L, Glucose 142 H, Calcium 7.4 L 08/22/23 03:42: WBC 10.8, RBC 2.99 L, Hgb 9.4 L, Hct 28.5 L, MCV 95.3 H, MCH 31.4 H, MCHC 33.0, RDW 13.7, Plt Count 133, MPV 10.3, Neut # (Auto) 9.7 H, Lymph # (Auto) 0.7 L, [place] # (Auto) 0.4, Eos # (Auto) 0.0, Baso # (Auto) 0.0, Absolute Nucleated RBC 0.00, Nucleated RBC % 0.0 08/22/23 01:47: Hgb 10.9 L, Hct 32.0 L 08/22/23 00:30: Blood Type Recheck B POSITIVE 08/22/23 00:26: Blood Type B POSITIVE, Antibody Screen NEGATIVE, Crossmatch IS Only See Detail 08/22/23 00:26: Sodium 135, Potassium 4.1, Chloride 104, Carbon Dioxide 27, Anion Gap 4.0 L, BUN 17, Creatinine 1.0, Estimated GFR (MDRD) 72 L, Glucose 128 H, Calcium 7.9 L, Total Bilirubin 0.4, AST 16, ALT 13, Alkaline Phosphatase 68, Total Protein 5.4 L, Albumin 3.2, Globulin 2.2, Albumin/Globulin Ratio 1.5, Lipase 17 08/22/23 00:26: PT 13.8 H, INR 1.3 H, APTT 22.2 L 08/22/23 00:26: WBC 12.1 H, RBC 3.33 L, Hgb 10.5 L, Hct 31.6 L, MCV 94.9 H, MCH 31.5 H, MCHC 33.2, RDW 13.1, Plt Count 196, MPV 10.8, Neut # (Auto) 10.0 H, Lymph # (Auto) 1.3 L, [place] # (Auto) 0.6, Eos # (Auto) 0.1, Baso # (Auto) 0.1, Absolute Nucleated RBC 0.00, Nucleated RBC % 0.0 Lab results reviewed: Yes Fish Bones: 08/22/23 03:42 08/22/23 03:42 Home Medications and Allergies Active Medications Lactated Ringer's (Lr) 1,000 mls @ 125 mls/hr IV .Q8H MIGUEL Last Admin: 08/22/23 02:19 Dose: 125 mls/hr Dopamine HCl/Dextrose (Dopamine) 400 mg in 250 mls @ 9.863 mls/hr IV .[id number] MIGUEL; Protocol Last Titration: 08/22/23 06:35 Dose: 11 mcg/kg/min, 54.244 mls/hr Levothyroxine Sodium (Levothyroxine 100 Mcg Tablet) 100 mcg PO 0700 MIGUEL Pantoprazole Sodium (Pantoprazole 40 Mg Vial) 40 mg IVP ONCE MIGUEL Stop: 08/24/23 01:59 Last Admin: 08/22/23 02:13 Dose: 40 mg Sodium Chloride (Sodium Chloride Flush 0.9% 10 Ml Syringe) 10 ml IVP 0100,0900,1700 MIGUEL Sodium Chloride (Sodium Chloride Flush 0.9% 10 Ml Syringe) 10 ml IVP PRN PRN PRN Reason: NEEDED PER PROVIDER ORDERS Fluticasone Furoate [Veramyst] 1 spr NS DAILY 12/18/13 Lansoprazole 30 mg PO DAILY 12/18/13 Levothyroxine Sodium [Synthroid] 100 mcg PO DAILY 12/18/13 Calcium Carbonate/Vitamin D3 [Calcium 500 + D Tablet] 1 tab PO DAILY 12/11/14 Cholecalciferol (Vitamin D3) [Vitamin D3] 2,000 mg PO DAILY 12/11/14 Glucosam/Chond/Collagen/Hyalur [Glucosamine Chondroitin Cap] 500 mg PO DAILY 12/11/14 Melatonin 3 mg PO QPM 12/11/14 Acetaminophen/Cod 300/30 [Tylenol #3] 1 each PO Q4-6H PRN 09/01/18 Ascorbic Acid 500 mg PO DAILY 09/01/18 Aspirin [Aspirin EC] 81 mg PO DAILY 09/01/18 Atorvastatin Calcium 80 mg PO QPM 09/01/18 Clopidogrel Bisulfate [Clopidogrel] 75 mg PO DAILY 09/01/18 Fluticasone/Vilanterol [Breo Ellipta 100-25 Mcg INH] 1 each IH DAILY 09/01/18 Gabapentin 300 mg PO QID 09/01/18 Multivitamin [Multiple Vitamins] 1 each PO DAILY 09/01/18 Nitroglycerin 0.4 mg SL DAILY PRN 09/01/18 [place]-3/Dha/Epa/Fish Oil [[place] 3 500 Softgel] 1 each PO DAILY 09/01/18 Triamcinolone 0.1% Cream [Kenalog 0.1% Cream] 1 applic TOP BID 09/01/18 Urea 1 applic TP DAILY PRN 09/01/18 guaiFENesin [Mucinex] 600 mg PO DAILY 09/02/18 Cholecalciferol [Vitamin D3] 5,000 unit PO DAILY 08/20/23 Docusate Sodium 100Mg Capsule [Colace 100Mg Capsule] 100 mg PO ONCE 08/20/23 Ipratropium [place] 30 ml NS DAILY 08/20/23 Meloxicam 15 mg PO DAILY 08/20/23 Metoprolol Tartrate [Lopressor] 25 mg PO DAILY 08/20/23 Tiotropium [place] [Spiriva Respimat] 2.5 mg INH DAILY 08/20/23 amLODIPine [Norvasc] 5 mg PO ONCE 08/20/23 Allergies/Adverse Reactions: Allergies Allergy/AdvReac Type Severity Reaction Status Date / Time Sulfa (Sulfonamide Allergy Unknown Verified 08/22/23 00:20 Antibiotics) Anes History & Medical History - Anesthetic History Anesthesia Complications: reports: No previous complications - Medical History Cardiovascular: reports: Hypertension, High cholesterol, [place] (2018, s/p stent. no issues since) Pulmonary: reports: Asthma, Sleep apnea Gastrointestinal: reports: GERD (well controlled) Urinary: reports: None Neuro: reports: None Musculoskeletal: reports: None Endocrine/Autoimmune: reports: HyPOthyroidism Blood Disorders: reports: Anemia Smoking Status: Former smoker Psychosocial: reports: Alcohol History of Cancer?: No Other Past Medical History: currently in ICU with GI bleed. Had hypotension overnight and getting blood now. - Surgical History General: reports: Cholecystectomy Eyes Ears Nose Throat (EENT): reports: Tonsil/Adenoidectomy Cardiothoracic: reports: Coronary stent Exam General: Alert, Oriented x3, Cooperative, No acute distress Dental: WNL Mouth Openin Fingerbreadth Neck Mobility: Normal Mallampati classification: II Thyromental Distance: 4-6 cm Respiratory: Lungs clear Mental/Cognitive Status: Alert/Oriented X3, Normal for patient Plan Anesthesia Type: General, Total IV Consent for Procedure(s) Verified and Reviewed: Yes Code Status: Attempt Resuscitation ASA classification: 3-Severe systemic disease Is this case an emergency?: Yes
[2023-08-22] MEDS ORDERED: PROCHLORPERAZINE 10 MG/2 ML VIAL IVP PRN (09:28)
[2023-08-22] MEDS: ONDANSETRON 4 MG/2 ML VIAL IVP PRN (09:33)
[2023-08-22] MEDS: SODIUM CHLORIDE FLUSH 0.9% 10 ML SYRINGE IVP SCH ×3 (09:57→20:42)
--- NOTE | 2023-08-22 10:13 | PROVIDER PROGRESS NOTE ---
Progress Note General Surgery Progress Note Tyron has remained hemodynamically stable this morning. He has stopped passing blood and clots from the rectum. He has received a second unit of platelets and has just started his 4th unit of PRBC. He was able to ingest 2 liters of Golytely, then became nauseated such that he couldn't ingest any more. I have asked that he stop the prep and after this unit of blood has infused we will proceed with colonoscopy. I have notified Dr. Alvarez about this patient and I will notify him when the patient is transferred to the endoscopy suite at his request. Walter Ortiz MD General Surgery Service
[2023-08-22] MEDS ORDERED: LIDOCAINE 2% URO-JET 5 ML SYRINGE UR ONE (10:32)
[2023-08-22] MEDS ORDERED: PROPOFOL 200 MG/20 ML VIAL IVP ONE (11:23)
[2023-08-22] MEDS ORDERED: ROCURONIUM 50 MG/5 ML VIAL ONE (11:23)
--- NOTE | 2023-08-22 12:08 | PHARMACY PROGRESS NOTE ---
- Best Possible Medication History Admit Date and Time: 08/22/23 0133 Medication History completed: Yes Patient Interview: Completed Secondary Source(s): Insurance records (YUDY AND I PERFORMED MEDREC SINCE THIS IS A COMPLICATED ONE. SPOUSE HANDED US A MEDLIST FROM HOME AND WE COMPARED IT TO WHAT WAS AVAILABLE ON HER INSURANCE RECORDS.) As the person ultimately responsible for medication therapy, providers are able to order a medication from an existing home medication list in [facility] via the "Reconcile Routine" prior to Confirmation of that medication by patient support partner. Such practice is discouraged except when the physician, in their clinical judgment, deems that a medical need exists for a medication without regard to previous use.
[2023-08-22] MEDS ORDERED: SUGAMMADEX 200 MG/2 ML VIAL IVP ONE (12:16)
--- NOTE | 2023-08-22 12:32 | PROVIDER PROGRESS NOTE ---
Progress Note General Surgery Brief Procedure Note (see "Provation" for details) Preop Diagnosis: Post-polypectomy colon hemorrhage Postop Diagnosis: No active bleeding identified in any portion of the colon from which polyps were taken during yesterday's examination. No evidence of a diverticular bleed. A non-bleeding hepatic flexure polyp stalk was present and may have been the source of the bleed, therefore an endoclip was placed on the stalk. Cautery was not used during this procedure Procedure: Colonoscopy with endoclip of polyp stalk Recommendation: 1) Continue ICU monitoring for 24 hrs 2) May have clear liquids 3) Q6 hr H&H and transfuse as needed 4) Expect to see continued old clot and blood from the rectum as there is still a considerable amount remaining in the left colon 5) No ASA, Plavix, or anticoagulation medication at this time Joe Ortiz MD, [facility] General Surgery Service
--- NOTE | 2023-08-22 12:48 | PROVIDER PROGRESS NOTE ---
Subjective - General Admit Date: 08/22/23 Procedure Date: 08/22/23 Post Op Days: 0 Objective - Patient Data Vital Signs: Vital Signs x48h Temp Pulse Resp BP Pulse Ox O2 Flow Rate 08/22/23 12:39 36.7 C 08/22/23 11:30 36.9 C 87 17 124/57 L 100 2 08/22/23 11:15 86 19 132/69 H 97 2 08/22/23 11:00 88 20 131/66 H 97 2 08/22/23 10:20 90 18 105/66 100 2 08/22/23 10:03 36.9 C 92 22 113/62 99 2 08/22/23 09:15 36.9 C 98 20 118/56 L 96 2 08/22/23 09:00 96 18 105/59 L 95 2 08/22/23 08:54 36 C L 99 17 96 2 08/22/23 08:45 100 17 109/58 L 95 2 08/22/23 08:15 101 H 14 107/55 L 98 2 08/22/23 08:00 102 H 18 92/61 96 2 08/22/23 07:39 36.7 C 08/22/23 07:30 113 H 13 96/61 98 2 08/22/23 07:16 36.7 C 115 H 14 98/55 L 100 2 08/22/23 07:13 36.6 C 102 H 15 88/54 L 100 2 08/22/23 07:05 36.6 C 103 H 13 80/44 L 100 08/22/23 07:00 36.8 C 103 H 17 96/58 L 100 08/22/23 06:55 102 H 16 88/50 L 100 2 08/22/23 06:50 99 16 87/57 L 99 2 08/22/23 06:45 99 16 93/54 L 98 2 08/22/23 06:40 99 20 84/58 L 97 2 08/22/23 06:35 100 15 86/55 L 99 2 08/22/23 06:04 36.7 C 107 H 24 90/49 L 98 2 08/22/23 05:55 99 15 88/48 L 95 2 08/22/23 05:50 105 H 19 72/34 L 92 2 08/22/23 05:45 107 H 20 91/57 L 94 2 08/22/23 05:40 110 H 15 96/56 L 96 2 08/22/23 05:35 107 H 16 92/55 L 96 2 08/22/23 05:31 36.7 C 98 16 93/59 L 99 2 08/22/23 05:30 36.7 C 112 H 21 93/59 L 98 2 08/22/23 05:20 99 10 L 91/58 L 98 2 08/22/23 05:15 100 7 L 89/51 L 96 2 08/22/23 05:10 100 13 84/49 L 97 2 08/22/23 05:05 97 12 95/60 98 2 08/22/23 05:00 98 13 86/57 L 99 2 08/22/23 04:45 89 12 98/49 L 97 2 Weight: Weight 08/20/23 08/21/23 08/22/23 23:59 23:59 23:59 Weight (kg) 131.5 kg Intake & Output: Intake and Output Totals x24h 08/20/23 08/21/23 08/22/23 23:59 23:59 23:59 Intake Total 4495.754 Output Total 950 Balance 3545.754 - Lab Results Lab Results: 08/22/23 03:42 08/22/23 03:42 Other Lab Results: Lab Results x24hrs 08/22/23 08/22/23 08/22/23 Range/Units 03:42 03:42 02:15 WBC 10.8 (4.8-10.8) x10^3/uL RBC 2.99 L (4.70-6.10) 10^6/uL Hgb 9.4 L (14.0-18.0) g/dL Hct 28.5 L (42.0-52.0) % MCV 95.3 H (80.0-94.0) fL MCH 31.4 H (27.0-31.0) pg MCHC 33.0 (32.0-36.0) g/dL RDW 13.7 (12.0-15.0) % Plt Count 133 (130-450) 10^3/uL MPV 10.3 (7.4-11.4) fL Neut # (Auto) 9.7 H (1.5-6.6) 10^3/uL Lymph # (Auto) 0.7 L (1.5-3.5) 10^3/uL [place] # (Auto) 0.4 (0.0-1.0) 10^3/uL Eos # (Auto) 0.0 (0.0-0.7) 10^3/uL Baso # (Auto) 0.0 (0.0-0.1) 10^3/uL Absolute Nucleated RBC 0.00 x10^3/uL Nucleated RBC % 0.0 /100WBC PT (9.9-12.6) secs INR (0.8-1.2) APTT (24.9-33.3) secs Sodium 137 (135-145) mmol/L Potassium 4.4 (3.5-4.5) mmol/L Chloride 107 (101-111) mmol/L Carbon Dioxide 25 (21-32) mmol/L Anion Gap 5.0 L (6-13) BUN 19 (6-20) mg/dL Creatinine 1.2 (0.6-1.3) mg/dL Estimated GFR (MDRD) 58 L (>89) Glucose 142 H (74-104) mg/dL Calcium 7.4 L (8.5-10.3) mg/dL Total Bilirubin (0.2-1.0) mg/dL AST (10-42) IU/L ALT (10-60) IU/L Alkaline Phosphatase (42-121) IU/L Total Protein (6.4-8.9) g/dL Albumin (3.2-5.5) g/dL Globulin (2.1-4.2) g/dL Albumin/Globulin Ratio (1.0-2.2) Lipase (11-82) U/L Nasal Screen MRSA (PCR) NEGATIVE (NEGATIVE) Blood Type Blood Type Recheck Antibody Screen Crossmatch IS Only 08/22/23 08/22/23 08/22/23 Range/Units 01:47 00:30 00:26 WBC (4.8-10.8) x10^3/uL RBC (4.70-6.10) 10^6/uL Hgb 10.9 L (14.0-18.0) g/dL Hct 32.0 L (42.0-52.0) % MCV (80.0-94.0) fL MCH (27.0-31.0) pg MCHC (32.0-36.0) g/dL RDW (12.0-15.0) % Plt Count (130-450) 10^3/uL MPV (7.4-11.4) fL Neut # (Auto) (1.5-6.6) 10^3/uL Lymph # (Auto) (1.5-3.5) 10^3/uL [place] # (Auto) (0.0-1.0) 10^3/uL Eos # (Auto) (0.0-0.7) 10^3/uL Baso # (Auto) (0.0-0.1) 10^3/uL Absolute Nucleated RBC x10^3/uL Nucleated RBC % /100WBC PT (9.9-12.6) secs INR (0.8-1.2) APTT (24.9-33.3) secs Sodium (135-145) mmol/L Potassium (3.5-4.5) mmol/L Chloride (101-111) mmol/L Carbon Dioxide (21-32) mmol/L Anion Gap (6-13) BUN (6-20) mg/dL Creatinine (0.6-1.3) mg/dL Estimated GFR (MDRD) (>89) Glucose (74-104) mg/dL Calcium (8.5-10.3) mg/dL Total Bilirubin (0.2-1.0) mg/dL AST (10-42) IU/L ALT (10-60) IU/L Alkaline Phosphatase (42-121) IU/L Total Protein (6.4-8.9) g/dL Albumin (3.2-5.5) g/dL Globulin (2.1-4.2) g/dL Albumin/Globulin Ratio (1.0-2.2) Lipase (11-82) U/L Nasal Screen MRSA (PCR) (NEGATIVE) Blood Type B POSITIVE Blood Type Recheck B POSITIVE Antibody Screen NEGATIVE Crossmatch IS Only See Detail 08/22/23 08/22/23 08/22/23 Range/Units 00:26 00:26 00:26 WBC 12.1 H (4.8-10.8) x10^3/uL RBC 3.33 L (4.70-6.10) 10^6/uL Hgb 10.5 L (14.0-18.0) g/dL Hct 31.6 L (42.0-52.0) % MCV 94.9 H (80.0-94.0) fL MCH 31.5 H (27.0-31.0) pg MCHC 33.2 (32.0-36.0) g/dL RDW 13.1 (12.0-15.0) % Plt Count 196 (130-450) 10^3/uL MPV 10.8 (7.4-11.4) fL Neut # (Auto) 10.0 H (1.5-6.6) 10^3/uL Lymph # (Auto) 1.3 L (1.5-3.5) 10^3/uL [place] # (Auto) 0.6 (0.0-1.0) 10^3/uL Eos # (Auto) 0.1 (0.0-0.7) 10^3/uL Baso # (Auto) 0.1 (0.0-0.1) 10^3/uL Absolute Nucleated RBC 0.00 x10^3/uL Nucleated RBC % 0.0 /100WBC PT 13.8 H (9.9-12.6) secs INR 1.3 H (0.8-1.2) APTT 22.2 L (24.9-33.3) secs Sodium 135 (135-145) mmol/L Potassium 4.1 (3.5-4.5) mmol/L Chloride 104 (101-111) mmol/L Carbon Dioxide 27 (21-32) mmol/L Anion Gap 4.0 L (6-13) BUN 17 (6-20) mg/dL Creatinine 1.0 (0.6-1.3) mg/dL Estimated GFR (MDRD) 72 L (>89) Glucose 128 H (74-104) mg/dL Calcium 7.9 L (8.5-10.3) mg/dL Total Bilirubin 0.4 (0.2-1.0) mg/dL AST 16 (10-42) IU/L ALT 13 (10-60) IU/L Alkaline Phosphatase 68 (42-121) IU/L Total Protein 5.4 L (6.4-8.9) g/dL Albumin 3.2 (3.2-5.5) g/dL Globulin 2.2 (2.1-4.2) g/dL Albumin/Globulin Ratio 1.5 (1.0-2.2) Lipase 17 (11-82) U/L Nasal Screen MRSA (PCR) (NEGATIVE) Blood Type Blood Type Recheck Antibody Screen Crossmatch IS Only - Current Medications Current Medications: Current Medications Generic Name Dose Route Start Last Admin Trade Name Freq PRN Reason Stop Dose Admin Lactated Ringer's 1,000 mls @ 125 mls/hr 08/22/23 02:00 08/22/23 09:45 Lr IV 125 mls/hr .Q8H MIGUEL Administration Dopamine HCl/Dextrose 400 mg in 250 mls @ 9.863 mls/hr 08/22/23 04:00 08/22/23 11:14 Dopamine IV 4 mcg/kg/min .[id number] MIGUEL 19.725 mls/hr Titration Protocol 2 MCG/KG/MIN Ondansetron HCl 4 mg 08/22/23 09:28 08/22/23 09:33 Ondansetron 4 Mg/2 Ml Vial IVP 4 mg Q4HR PRN Administration Nausea / Vomiting Pantoprazole Sodium 40 mg 08/22/23 02:00 08/22/23 02:13 Pantoprazole 40 Mg Vial IVP 08/24/23 01:59 40 mg ONCE MIGUEL Administration Sodium Chloride 10 ml 08/22/23 09:00 08/22/23 09:57 Sodium Chloride Flush 0.9% 10 Ml Syringe IVP 10 ml 0100,0900,1700 MIGUEL Administration Impression/Plan - Problem List Problem List: I spoke with the patient and his individually and with Dr. Mata. The plan is/was for colonoscopy to control any possible bleeding site. I explained the need to balance the need for anticoagulation (for his heart) with the need t o perform a colonoscopy for his positive Cologuard study. They both vocalized an understanding. The patient's asked that I contact the patient's ota, Dr. Nato Babin, at the [facility] regarding his Plavix and aspirin. I did exactly that and Dr. Babin stating it would be prudent and okay for the patient to be off the Plavix and aspirin for 7 days following the cessation of his bleeding. He did go on to state that the stent placement was remote enough that the patient may be able to come off this medication but that this should be discussed at a future meeting. I replayed this conversation with the patient's . The plan is to keep the patient hospitalized in the ICU to look for future bleeding. I thank Dr. Mata very muchy for his timely intervention and his notification of me.
[2023-08-22] MEDS: FAMOTIDINE 20 MG/2 ML VIAL IVP SCH ×2 (12:54→20:42)
--- NOTE | 2023-08-22 13:10 | ANESTHESIA POST OP EVALUATION ---
Anesthesia Post Eval - Post Anesthesia Eval Vitals: Last Vital Signs Temp 36.7 C 08/22/23 12:39 Pulse 80 08/22/23 12:45 Resp 20 08/22/23 12:45 BP 137/65 H 08/22/23 12:45 Pulse Ox 98 08/22/23 12:45 O2 Flow Rate 4 08/22/23 12:45 CV Function Including HR & BP: Stable Pain Control: Satisfactory Nausea & Vomiting: Negative Mental Status: Baseline Respiratory Status: Airway Patent Hydration Status: Satisfactory Anesthesia Complications: None
[2023-08-22 13:17] LABS: HGB - HEMOGLOBIN 10.2 g/dL (14.0-18.0)
[2023-08-22 13:50] LABS: HCT - HEMATOCRIT 30.3 % (42.0-52.0)
[2023-08-22 14:10] LABS: CREATININE 1.2 mg/dL (0.6-1.3); MAGNESIUM 1.5 mg/dL (1.7-2.3); POTASSIUM 4.3 mmol/L (3.5-4.5)
[2023-08-22] MEDS ORDERED: MAGNESIUM SULFATE 2 GRAM 2 GM/50 ML BAG IV ONE (14:42)
[2023-08-22 16:03] LABS: HCT - HEMATOCRIT 28.4 % (42.0-52.0); HGB - HEMOGLOBIN 9.5 g/dL (14.0-18.0)
[2023-08-22] MEDS ORDERED: ZINC OXIDE 20% OINT 30 GM TUBE TOP PRN (19:54)
[2023-08-22 22:01] LABS: HGB - HEMOGLOBIN 8.8 g/dL (14.0-18.0)
[2023-08-23] MEDS: LACTATED RINGERS 1,000 ML IV SCH ×2 (01:04→09:30)
[2023-08-23] MEDS: DOPamine 400 MG/250 ML 400 MG/250 ML BAG IV SCH ×5 (02:13→15:02)
[2023-08-23 02:46] LABS: HCT - HEMATOCRIT 19.6 % (42.0-52.0); HGB - HEMOGLOBIN 6.7 g/dL (14.0-18.0)
[2023-08-23] MEDS: PANTOPRAZOLE 40 MG VIAL IVP SCH (03:26)
--- NOTE | 2023-08-23 04:32 | PROVIDER PROGRESS NOTE ---
Subjective - Subjective Subjective: I was notified by a nurse patient had large bloodied bowel movements. H&H sent came back 6.7, also patient blood pressure dropping patient appeared to be bleeding massively. Colonoscopy area on an remark no active bleeding noted. I called and discuss with nurse and place orders. Plan patient likely bleeding somewhere may need upper endoscopy Also patient may need bleeding scan nuclear medicine studies that I was told that they do not have that at this facility Ordered CT abdomen and pelvis with and without IV contrast Transfuse two units of PRBC Continue IV Protonix This could also be possible upper G.I. bleed as the bleeding appeared to be very massive and colonoscopy negative resume dopamine drip titrate to maintain MAP>65 Monitor patient closely, nurse has started transfusion. iv fluid resuscitation. Objective - Vital Signs/Intake & Output Vital Signs: Vital Signs x48h Temp Pulse Resp BP Pulse Ox O2 Flow Rate 08/23/23 04:05 104 H 20 71/45 L 96 2 08/23/23 04:00 109 H 18 78/45 L 95 2 08/23/23 03:59 37.1 C 112 H 19 73/42 L 95 2 08/23/23 03:55 37.1 C 110 H 23 73/43 L 97 2 08/23/23 03:50 111 H 18 72/48 L 96 2 08/23/23 03:45 109 H 18 75/44 L 96 2 08/23/23 03:40 112 H 18 68/54 L 96 2 08/23/23 03:35 112 H 18 85/47 L 96 2 08/23/23 03:30 112 H 18 78/49 L 97 2 08/23/23 03:15 116 H 15 97/50 L 96 2 08/23/23 03:00 118 H 21 93/76 96 2 08/23/23 02:48 84 9 L 74/50 L 97 2 08/23/23 02:00 37.3 C 76 17 78/54 L 97 2 08/23/23 01:00 83 14 102/50 L 98 2 08/23/23 00:00 81 18 115/43 L 96 2 08/22/23 23:00 75 17 120/49 L 98 2 08/22/23 22:40 2 08/22/23 22:00 72 15 113/46 L 97 2 08/22/23 21:00 71 16 111/60 99 2 Intake & Output: Intake & Output 08/20/23 08/21/23 08/22/23 08/23/23 23:59 23:59 23:59 23:59 Intake Total 7625.345 1016.001 Output Total 3205 237 Balance 4420.345 779.001 - Lab Results Fish Bones: 08/23/23 02:23 08/22/23 13:07 Other Labs: Lab Results x24hrs 08/23/23 08/22/23 08/22/23 Range/Units 02:23 21:45 17:14 Hgb 6.7 L* 8.8 L (14.0-18.0) g/dL Hct 19.6 L* 26.0 L (42.0-52.0) % Sodium (135-145) mmol/L Potassium (3.5-4.5) mmol/L Chloride (101-111) mmol/L Carbon Dioxide (21-32) mmol/L Anion Gap (6-13) BUN (6-20) mg/dL Creatinine (0.6-1.3) mg/dL Estimated GFR (MDRD) (>89) Glucose (74-104) mg/dL Calcium (8.5-10.3) mg/dL Magnesium 1.6 L (1.7-2.3) mg/dL Troponin I High Sens (2.3-19.7) ng/L Nasal Screen MRSA (PCR) (NEGATIVE) Blood Type Antibody Screen Crossmatch IS Only 08/22/23 08/22/23 08/22/23 Range/Units 15:47 15:47 13:07 Hgb 9.5 L (14.0-18.0) g/dL Hct 28.4 L (42.0-52.0) % Sodium (135-145) mmol/L Potassium (3.5-4.5) mmol/L Chloride (101-111) mmol/L Carbon Dioxide (21-32) mmol/L Anion Gap (6-13) BUN (6-20) mg/dL Creatinine (0.6-1.3) mg/dL Estimated GFR (MDRD) (>89) Glucose (74-104) mg/dL Calcium (8.5-10.3) mg/dL Magnesium (1.7-2.3) mg/dL Troponin I High Sens 91.6 H* 87.2 H* (2.3-19.7) ng/L Nasal Screen MRSA (PCR) (NEGATIVE) Blood Type Antibody Screen Crossmatch IS Only 08/22/23 08/22/23 08/22/23 Range/Units 13:07 13:07 03:42 Hgb 10.2 L (14.0-18.0) g/dL Hct 30.3 L (42.0-52.0) % Sodium 138 137 (135-145) mmol/L Potassium 4.3 4.4 (3.5-4.5) mmol/L Chloride 105 107 (101-111) mmol/L Carbon Dioxide 29 25 (21-32) mmol/L Anion Gap 4.0 L 5.0 L (6-13) BUN 20 19 (6-20) mg/dL Creatinine 1.2 1.2 (0.6-1.3) mg/dL Estimated GFR (MDRD) 58 L 58 L (>89) Glucose 124 H 142 H (74-104) mg/dL Calcium 8.0 L 7.4 L (8.5-10.3) mg/dL Magnesium 1.5 L (1.7-2.3) mg/dL Troponin I High Sens (2.3-19.7) ng/L Nasal Screen MRSA (PCR) (NEGATIVE) Blood Type Antibody Screen Crossmatch IS Only 08/22/23 08/22/23 Range/Units 02:15 00:26 Hgb (14.0-18.0) g/dL Hct (42.0-52.0) % Sodium (135-145) mmol/L Potassium (3.5-4.5) mmol/L Chloride (101-111) mmol/L Carbon Dioxide (21-32) mmol/L Anion Gap (6-13) BUN (6-20) mg/dL Creatinine (0.6-1.3) mg/dL Estimated GFR (MDRD) (>89) Glucose (74-104) mg/dL Calcium (8.5-10.3) mg/dL Magnesium (1.7-2.3) mg/dL Troponin I High Sens (2.3-19.7) ng/L Nasal Screen MRSA (PCR) NEGATIVE (NEGATIVE) Blood Type B POSITIVE Antibody Screen NEGATIVE Crossmatch IS Only See Detail
[2023-08-23] MEDS ORDERED: OCTREOTIDE 500 MCG in SODIUM CHLORIDE 0.9% 100ML 99 ML IV SCH (05:00)
[2023-08-23] MEDS ORDERED: HYDROmorphone 2 MG/ML VIAL IVP PRN (06:08)
--- NOTE | 2023-08-23 06:33 | PROVIDER PROGRESS NOTE ---
Progress Note General Surgery Progress Note Tyron developed recurrent lower GI bleeding around 0200 today and has been hypotensive and tachycardic. A unit of blood is being transfused now and I have ordered another platelet transfusion. A CTA is scheduled but he needs to be more stable before transfer to the CT unit. Repeat colonoscopy is a consideration but no active bleeding was seen on yesterday's procedure. Transfer to a tertiary care facility for angioembolization is now a real option but if he can not be stabilized, he will require operative intervention. Will discuss with Dr. Alvarez. Walter Ortiz MD General Surgery Service
[2023-08-23 06:42] LABS: VBG PH 7.356 (7.31-7.41)
[2023-08-23 06:51] LABS: PHOSPHORUS 2.9 mg/dL (2.5-5.0); POTASSIUM 4.2 mmol/L (3.5-4.5)
[2023-08-23] MEDS ORDERED: LEVOTHYROXINE 100 MCG TABLET PO SCH (07:00)
[2023-08-23] MEDS: FAMOTIDINE 20 MG/2 ML VIAL IVP SCH (08:09)
[2023-08-23] MEDS: SODIUM CHLORIDE FLUSH 0.9% 10 ML SYRINGE IVP SCH (08:10)
[2023-08-23] MEDS ORDERED: CALCIUM GLUC 1,000MG/50ML-NACL 1,000 MG/50 ML BAG IV ONE (08:16)
[2023-08-23 08:34] LABS: CALCIUM 7.8 mg/dL (8.5-10.3); CREATININE 1.4 mg/dL (0.6-1.3); POTASSIUM 4.3 mmol/L (3.5-4.5)
[2023-08-23] MEDS: ONDANSETRON 4 MG/2 ML VIAL IVP PRN (08:41)
--- NOTE | 2023-08-23 08:52 | PROVIDER PROGRESS NOTE ---
Progress Note I received a phone call regarding the patient's ongoing GI bleeding and evaluated the patient in the intensive care unit. With the intensive inte rvention including blood, platelets, and dopamine his mean arterial blood pressure right now is in the high 90s and the dopamine is being weaned back. I have read Dr. Ortiz's note and am in complete agreement. I am considering using tranexamic acid as it has been used for heavy menses, wisdom tooth extraction, and certainly traumatic bleeding. The only thing holding me back is the fact that the patient has coronary disease with a stent placement although the stent placement is distant (more than 6 months ago) and I cannot find out any information regarding whether or not tranexamic acid poses a risk in coronary patients. At this point the safest course for the patient would be angioembolic intervention as it will allow for directed therapy without an abdominal incision. I will discuss this with Dr. Ortiz and work towards transfer assuming the patient remains stable. If the patient remains unstable then surgery may be the only option.
--- NOTE | 2023-08-23 11:16 | PROVIDER PROGRESS NOTE ---
Progress Note Spoke with patient and regarding transfer of his care to a higher level. I explained that I have started the process. I explained that surgery is an option but it is definitely not his best option. The way I explained angioembolization is that he had angiography with a stent to open an artery in his heart and now we are looking and angiography with a coil to close an artery. They vocalized an understanding. I explained that this technology is not available at our hospital. The plan is to give him as many blood products as necessary to keep him stable while awaiting transfer. Should the patient go into extremis and surgery was the only option then I would operate. Awaiting on return calls from [facility] and .
--- NOTE | 2023-08-23 12:42 | Discharge Plan ---
Discharge Plan Problem Reviewed?: Yes Disposition: 02 Transfer Acute Care Hosp Condition: Critical No Smoking: If you smoke, Please STOP! Call for help.
--- NOTE | 2023-08-23 13:17 | DISCHARGE SUMMARY ---
Discharge Summary Discharge Date: 08/23/23 Condition at Discharge: Critical Discharge Disposition: 02 Transfer Acute Care Hosp - ALLERGIES Allergies/Adverse Reactions: Allergies Allergy/AdvReac Type Severity Reaction Status Date / Time Sulfa (Sulfonamide Allergy Unknown Verified 08/22/23 00:20 Antibiotics) - MEDICATIONS Home Medications: Ambulatory Orders Medication Instructions Recorded Confirmed Fluticasone Furoate [Veramyst] 2 spr NS DAILY 12/18/13 08/22/23 Lansoprazole 30 mg PO 1200 12/18/13 08/22/23 Levothyroxine Sodium [Synthroid] 100 mcg PO 0700 12/18/13 08/22/23 Calcium Carbonate/Vitamin D3 1 tab PO BID 12/11/14 08/22/23 [Calcium 500 + D Tablet] Cholecalciferol (Vitamin D3) 2,000 unit PO DAILY 12/11/14 08/22/23 [Vitamin D3] Glucosam/Chond/Collagen/Hyalur 2 ea PO HS 12/11/14 08/22/23 [Glucosamine Chondroitin Cap] Melatonin 3 mg PO QPM 12/11/14 08/22/23 Ascorbic Acid 500 mg PO DAILY 09/01/18 08/22/23 Aspirin [Aspirin EC] 81 mg PO DAILY 09/01/18 08/22/23 Atorvastatin Calcium 80 mg PO HS 09/01/18 08/22/23 Clopidogrel Bisulfate [Clopidogrel] 75 mg PO DAILY 09/01/18 08/22/23 Gabapentin 300 mg PO QID PRN 09/01/18 08/22/23 Multivitamin [Multiple Vitamins] 1 each PO DAILY 09/01/18 08/22/23 Nitroglycerin 0.4 mg SL DAILY PRN 09/01/18 08/22/23 [place]-3/Dha/Epa/Fish Oil [[place] 3 1 each PO DAILY 09/01/18 08/22/23 500 Softgel] Losartan [Cozaar] 50 mg PO DAILY #90 tablet 09/03/18 08/22/23 Docusate Sodium 100Mg Capsule 100 mg PO HS 08/20/23 08/22/23 [Colace 100Mg Capsule] Ipratropium [place]rell[place] 2 spr NS HS 08/20/23 08/22/23 Meloxicam 15 mg PO 1200 08/20/23 08/22/23 Metoprolol Tartrate [Lopressor] 25 mg PO QPM 08/20/23 08/22/23 Tiotropium [place] [Spiriva 2 puffs INH DAILY 08/20/23 08/22/23 Respimat] amLODIPine [Norvasc] 5 mg PO DAILY 08/20/23 08/22/23 Cholecalciferol [Vitamin D3] 25 mcg PO HS 08/22/23 08/22/23 Fluticasone Propion/Salmeterol 1 puffs INH BID 08/22/23 08/22/23 [Fluticasone-Salmeterol 115-21] Furosemide [Lasix] 20 mg PO DAILY PRN 08/22/23 08/22/23 Levocetirizine Dihydrochloride 5 mg PO HS 08/22/23 08/22/23 [Xyzal] Magnesium 250 mg PO HS 08/22/23 08/22/23 Multivitamin with Minerals [Hair, 1 tab PO DAILY 08/22/23 08/22/23 Skin and Nails] Zinc Gluconate [Zinc] 100 mg PO HS 08/22/23 08/22/23 guaiFENesin [Chest Congestion 400 mg PO HS 08/22/23 08/22/23 Relief] - LABS Result Diagrams: 08/23/23 02:23 08/23/23 06:28
[2023-08-23 14:18] VITALS: O2SAT 100
[2023-08-23 15:03] VITALS: BP 106/56
--- NOTE | 2023-08-23 18:59 | DISCHARGE SUMMARY ---
"Discharge Summary Admit Date: 08/22/23 Discharge Date: 08/23/23 Discharging Provider: Dr Linda Curtis Condition at Discharge: Critical Discharge Disposition: 02 Transfer Acute Care Hosp - [facility] History of Present Illness: 83-year-old male with history of coronary artery disease, COPD, HTN, who presents to ED status post colonoscopy yesterday with a chief complaint of bright red blood per rectum. Patient apparently was not supposed to take his Plavix 75 mg but accidentally did when he got home and is having multiple bright red blood per rectum episodes and lightheadedness. He had 5 large bloody bowel movements since colonoscopy earlier yesterday and states that he is actively having large volume BRBPR. EMS reported patient was hypotensive on the field with BP 70s/50s.patient continued to have bright red blood per rectum when I observed the patient on video .He was noted to be hypotensive on presentation with systolic blood pressure 70s, patient was type and screen with rapid transfusion protocol. Received two units of PRBC and blood pressure improve to systolic 120. CBC which was sent came back with hemoglobin of about 10 his baseline is normal. Patient is otherwise awake and alert verbalizing. Patient was seen by surgery in the emergency room recommended admission to ICU and patient will be scoped in the morning. No fever no chills no nausea no vomiting no hematemesis no hemoptysis no hematuria. Patient appears very pale. He is being admitted to the ICU. - CONSULTS | PROCEDURES Consultations: Dr Ortiz, Dr Alvarez Procedures: Colonoscopy with endoclip of polyp stalk - HOSPITAL COURSE Hospital Course: 1) Acute Hemorrhagic shock He was in shock, admitted to the ICU and received aggressive rescusitation using transfused blood and iv fluids. The shock recurred when he re-bled (see #2) 2) Acute lower G.I. bleed This was managed by having colonoscopy with endoclip of polyp stalk. However, the following day he re-bled and was again hypotensive. For this reason, the patient was transferred to [facility] for a planned angio by IR and embolization. 3) Acute blood loss anemia He needed a total of 6U PRBcs transfused while here. In addition, he got 2U FFP, 3 U plts and was on Octreotide drip. 4) Status post colonoscopy polypectomy As per recent history 5) COPD w/out exacerbation We ordered his inhaler for prn use. 6) Hx Hypertension He was intermittently hypotensive while here. All his BP meds were on hold. 7) Coronary artery disease His aspirin and Plavix were on hold during his entire stay here - ALLERGIES Allergies/Adverse Reactions: Allergies Allergy/AdvReac Type Severity Reaction Status Date / Time Sulfa (Sulfonamide Allergy Unknown Verified 08/22/23 00:20 Antibiotics) - MEDICATIONS Home Medications: Ambulatory Orders Medication Instructions Recorded Confirmed Fluticasone Furoate [Veramyst] 2 spr NS DAILY 12/18/13 08/22/23 Lansoprazole 30 mg PO 1200 12/18/13 08/22/23 Levothyroxine Sodium [Synthroid] 100 mcg PO 0700 12/18/13 08/22/23 Calcium Carbonate/Vitamin D3 1 tab PO BID 12/11/14 08/22/23 [Calcium 500 + D Tablet] Cholecalciferol (Vitamin D3) 2,000 unit PO DAILY 12/11/14 08/22/23 [Vitamin D3] Glucosam/Chond/Collagen/Hyalur 2 ea PO HS 12/11/14 08/22/23 [Glucosamine Chondroitin Cap] Melatonin 3 mg PO QPM 12/11/14 08/22/23 Ascorbic Acid 500 mg PO DAILY 09/01/18 08/22/23 Aspirin [Aspirin EC] 81 mg PO DAILY 09/01/18 08/22/23 Atorvastatin Calcium 80 mg PO HS 09/01/18 08/22/23 Clopidogrel Bisulfate [Clopidogrel] 75 mg PO DAILY 09/01/18 08/22/23 Gabapentin 300 mg PO QID PRN 09/01/18 08/22/23 Multivitamin [Multiple Vitamins] 1 each PO DAILY 09/01/18 08/22/23 Nitroglycerin 0.4 mg SL DAILY PRN 09/01/18 08/22/23 [place]-3/Dha/Epa/Fish Oil [[place] 3 1 each PO DAILY 09/01/18 08/22/23 500 Softgel] Losartan [Cozaar] 50 mg PO DAILY #90 tablet 09/03/18 08/22/23 Docusate Sodium 100Mg Capsule 100 mg PO HS 08/20/23 08/22/23 [Colace 100Mg Capsule] Ipratropium [place] 2 spr NS HS 08/20/23 08/22/23 Meloxicam 15 mg PO 1200 08/20/23 08/22/23 Metoprolol Tartrate [Lopressor] 25 mg PO QPM 08/20/23 08/22/23 Tiotropium [place] [Spiriva 2 puffs INH DAILY 08/20/23 08/22/23 Respimat] amLODIPine [Norvasc] 5 mg PO DAILY 08/20/23 08/22/23 Cholecalciferol [Vitamin D3] 25 mcg PO HS 08/22/23 08/22/23 Fluticasone Propion/Salmeterol 1 puffs INH BID 08/22/23 08/22/23 [Fluticasone-Salmeterol 115-21] Furosemide [Lasix] 20 mg PO DAILY PRN 08/22/23 08/22/23 Levocetirizine Dihydrochloride 5 mg PO HS 08/22/23 08/22/23 [Xyzal] Magnesium 250 mg PO HS 08/22/23 08/22/23 Multivitamin with Minerals [Hair, 1 tab PO DAILY 08/22/23 08/22/23 Skin and Nails] Zinc Gluconate [Zinc] 100 mg PO HS 08/22/23 08/22/23 guaiFENesin [Chest Congestion 400 mg PO HS 08/22/23 08/22/23 Relief] - PHYSICAL EXAM AT DISCHARGE General Appearance: positive: No acute distress, Alert Eyes Bilateral: positive: Normal inspection, No lid inflammation ENT: positive: ENT inspection nml, No signs of dehydration Neck: positive: Nml inspection, No JVD Respiratory: positive: No respiratory distress Cardiovascular: positive: Regular rate & rhythm Abdomen: positive: Non-tender, No distention Skin: positive: Warm, Dry, Pallor Extremities: positive: Non-tender Neurologic/Psychiatric: positive: Oriented x3, Motor nml - LABS Result Diagrams: 08/23/23 02:23 08/23/23 06:28 - DIAGNOSTIC IMAGING Diagnostic Imaging Results: Final report reviewed - FOLLOW UP Follow Up: This will be determined after his hospitalization at [facility] - TIME SPENT Time Spent in Discharge (Minutes): 45"
== END 2023-08-23 15:18 | disposition short-term general hospital (02) | DRG 920 ==
LOC: EDUNIT# → ED 00:15 → ICU 01:33
PROVIDERS: ADMIT Internal Medicine; ATTEND Internal Medicine
PROC: 0W3P8ZZ Control Bleeding in Gastrointestinal Tract, Via Natural or Artificial Opening Endoscopic (ICD-10-PCS; principal; 2023-08-22 12:00)
PROC: 30233N1 Transfusion of Nonautologous Red Blood Cells into Peripheral Vein, Percutaneous Approach (ICD-10-PCS; 2023-08-23)
PROC: 30233R1 Transfusion of Nonautologous Platelets into Peripheral Vein, Percutaneous Approach (ICD-10-PCS; 2023-08-23)
DX: K91.840 Postprocedural hemorrhage of a digestive system organ or structure following a digestive system procedure (principal); D62 Acute posthemorrhagic anemia; K62.5 Hemorrhage of anus and rectum; T81.19XA Other postprocedural shock, initial encounter; I25.10 Atherosclerotic heart disease of native coronary artery without angina pectoris; R42 Dizziness and giddiness; J44.9 Chronic obstructive pulmonary disease, unspecified; I10 Essential (primary) hypertension; I95.9 Hypotension, unspecified; Y83.8 Other surgical procedures as the cause of abnormal reaction of the patient, or of later complication, without mention of misadventure at the time of the procedure; Z79.02 Long term (current) use of antithrombotics/antiplatelets; Z79.82 Long term (current) use of aspirin; Z86.010 Personal history of colon polyps; Z90.49 Acquired absence of other specified parts of digestive tract; Z95.5 Presence of coronary angioplasty implant and graft
CPT/HCPCS: 36415; 36430; 80048; 80053; 82330; 83690; 83735; 84100; 84132; 84484; 85014; 85018; 85025; 85610; 85730; 86850; 86900; 86901; 86920; 87150; 93005; 93306; 99291; A9270; J1170; J7120; P9016; P9017; P9037; 85027

== ENCOUNTER 2023-11-15 14:52 | Outpatient (CLI) | payer BC, MEDICARE ==
--- NOTE | 2023-11-15 16:06 | Sleep Patient Instructions ---
Sleep Center Visit Summary - Patient Visit Information Reason for Visit: Initial consult for evaluation of sleep disordered breathing and other sleep issues. - Patient Instructions Instructions Attached: Sleep Study, Sleep Study Home Monitor Additional Instructions: You will be completing a sleep study, either an in-lab polysomnography (PSG) or home sleep study (HST). You will follow-up in the sleep care office after the sleep study is completed to hear the results and talk about therapy, if needed. You will be called by our office staff to schedule this appointment, but you may contact us with any questions. - Clinic Information Contact: [facility] [address] [place] [id number] [email or web address] T: [phone]
--- NOTE | 2023-11-15 16:16 | SLEEP CARE CONSULTATION ---
Information from patient questionnaire entered by Jacqueline Lockwood. I have reviewed and concur with the information entered by Jacqueline Lockwood. This document represents the service I personally performed and the decisions made by me, Candy Morrison ARNP. History of Present Illness Service Date and Time: 11/15/2023 1452 Reason for Visit: New patient Accompanied by: Spouse (Billie) Chief Complaint: reports: Snoring, Excessive daytime sleepiness, Frequent awakenings at night Usual bedtime: 11PM Time it takes to fall asleep: within 30 minutes Snores at night: Yes Observed to quit breathing while asleep: No Sleeps alone due to snoring: Yes (occasionally) Number of times waking at night: 2-3 Reasons for waking at night: reports: Bathroom. denies: Choking, Snoring, Gasping for air Toss, Turn, or Twitch while sleeping: Yes Recalls having dreams: No (rarely) Usually gets out of bed at: 0800-900 Feels refreshed in the morning: Yes Morning headache: Yes (2-3 times a week; goes away in 1/2 hr to 1 hr) Sleepy or fatigued during the day: Yes (not normally, no unintentional naps) Ever fallen asleep while driving: Yes (drowsy driving, just once time) Takes day naps: Yes (none for couple weeks; was daily before that) Dreams during day naps: No Prior sleep studies: No Additional HPI information: I had the pleasure of seeing SARA FIERRO today regarding the possibility of him having a sleep disorder. His current complaints are daytime sleepiness, frequent night awakenings and snoring. He is accompanied by his today. Patient states he had a colonoscopy to go back 3 times to fix bleeding where he had polyps removed. He was getting very tired and taking naps in the afternoon because he was anemic after "bleeding out ". His says he snores but he does not stop breathing at night. He says he has snored a long time and it is loud enough that occasionally they do sleep separate. He goes to sleep within 30 minutes and gets up only to use the bathroom 1-2 times a night. He states he normally feels rested in the mornings and is sleeping about 9 hours a night. He says he does wake up with headaches 2 or 3 times a week that resolve within the hour. - Parasomnia Symptoms Ever been unable to move upon waking from sleep: No Walks in sleep: No Talks in sleep: No Ever acted out dreams in sleep: No Ever felt weak in the knees when startled or emotional: Yes (once in a while; has never fallen to ground) Bothered by creepy, crawly, restless sensations in legs: No Problems with memory or concentration: Yes (never had a good memory) Subjective Initial [place] Sleepiness Scale score: 9 (11/15/23) Past Medical History Past Medical History: reports: Hypertension, Arthritis, Coronary Heart Disease (1 stent in 08/13/2018), Hypothyroidism, GERD, Other (recent anemia after colonoscopy/polyp removal) Social History The patient's occupation is a RETIRED. Patient is and lives in [place]. Have you smoked in the past 12 months: No Cigarettes per day (20/pack): 40 Years of smokin Quit date: 1984 Smoking Pack Years: 40.0 Alcohol use: Yes Alcohol amount and frequency: ONCE A DAY EVERY DAY Caffeine use: Yes Caffeine amount and frequency: 3-4 CUPS COFFEE EVERY DAY Family History Family history of sleep disordered breathing: Yes Family Hx Sleep Apnea: Father: Snoring, Sleep apnea - Untreated, Sibling: Snoring, Sleep apnea - Treated Allergies and Home Medications Known drug allergies: Yes (sulfa) Drug allergies reviewed: Yes Home medication list reviewed: Yes (as listed) Allergy and home medication list: Allergies Sulfa (Sulfonamide Antibiotics) Allergy (Verified 11/13/23 11:53) Unknown Home Medications Medication Instructions Recorded Confirmed Last Taken Type Fluticasone Furoate [Veramyst] 2 spr NS DAILY 12/18/13 11/15/23 1 Day Ago History ~08/20/23 Lansoprazole 30 mg PO 1200 12/18/13 11/15/23 1 Day Ago History ~08/20/23 Levothyroxine Sodium [Synthroid] 100 mcg PO 0700 12/18/13 11/15/23 1 Day Ago History ~08/20/23 Calcium Carbonate/Vitamin D3 1 tab PO BID 12/11/14 11/15/23 1 Day Ago History [Calcium 500 + D Tablet] ~08/20/23 Cholecalciferol (Vitamin D3) 2,000 unit PO DAILY 12/11/14 11/15/23 1 Day Ago History [Vitamin D3] ~08/20/23 Glucosam/Chond/Collagen/Hyalur 2 ea PO HS 12/11/14 11/15/23 1 Day Ago History [Glucosamine Chondroitin Cap] ~08/20/23 Melatonin 3 mg PO QPM 12/11/14 11/15/23 Unknown History Ascorbic Acid 500 mg PO DAILY 09/01/18 11/15/23 1 Day Ago History ~08/20/23 Aspirin [Aspirin EC] 81 mg PO DAILY 09/01/18 11/15/23 1 Day Ago History ~08/20/23 Atorvastatin Calcium 80 mg PO HS 09/01/18 11/15/23 1 Day Ago History ~08/20/23 Gabapentin 300 mg PO QID PRN 09/01/18 11/15/23 1 Day Ago History ~08/20/23 Multivitamin [Multiple Vitamins] 1 each PO DAILY 09/01/18 11/15/23 1 Day Ago History ~08/20/23 Nitroglycerin 0.4 mg SL DAILY PRN 09/01/18 11/15/23 Unknown History [place]-3/Dha/Epa/Fish Oil [[place] 3 1 each PO DAILY 09/01/18 11/15/23 1 Day Ago History 500 Softgel] ~08/20/23 Losartan [Cozaar] 50 mg PO DAILY #90 tablet 09/03/18 11/15/23 1 Day Ago Rx ~08/20/23 Docusate Sodium 100Mg Capsule 100 mg PO HS 08/20/23 11/15/23 1 Day Ago History [Colace 100Mg Capsule] ~08/20/23 Ipratropium [place] 2 spr NS HS 08/20/23 11/15/23 1 Day Ago History ~08/20/23 Meloxicam 15 mg PO 1200 08/20/23 11/15/23 1 Day Ago History ~08/20/23 Metoprolol Tartrate [Lopressor] 25 mg PO QPM 08/20/23 11/15/23 1 Day Ago History ~08/20/23 Tiotropium [place] [Spiriva 2 puffs INH DAILY 08/20/23 11/15/23 08/21/23 History Respimat] amLODIPine [Norvasc] 5 mg PO DAILY 08/20/23 11/15/23 1 Day Ago History ~08/20/23 Cholecalciferol [Vitamin D3] 25 mcg PO HS 08/22/23 11/15/23 Unknown History Fluticasone Propion/Salmeterol 1 puffs INH BID 08/22/23 11/15/23 Unknown History [Fluticasone-Salmeterol 115-21] Furosemide [Lasix] 20 mg PO DAILY PRN 08/22/23 11/15/23 Unknown History Levocetirizine Dihydrochloride 5 mg PO HS 08/22/23 11/15/23 Unknown History [Xyzal] Magnesium 250 mg PO HS 08/22/23 11/15/23 Unknown History Multivitamin with Minerals [Hair, 1 tab PO DAILY 08/22/23 11/15/23 Unknown History Skin and Nails] Zinc Gluconate [Zinc] 100 mg PO HS 08/22/23 11/15/23 Unknown History guaiFENesin [Chest Congestion 400 mg PO HS 08/22/23 11/15/23 Unknown History Relief] Review of Systems Weight loss over past 5 years: 19 Cardiovascular: reports: high blood pressure, chest pain, leg or foot swelling Respiratory: reports: wheeze Urinary: reports: frequency Neurological: reports: gait or balance problems Ear/Nose/Throat: reports: tonsillectomy, wisdom teeth removed Endocrine: reports: thyroid disease, unexplained weakness Musculoskeletal: reports: joint pain, neck pain, back pain Immunologic: reports: sneezing Physical Exam Vital signs obtained and entered by: JACQUELINE Islas MA Blood Pressure: 136/107 (LEFT) Cuff size: wrist Heart Rate: 53 O2 Saturation: 96 Height: 5 ft 10 in Weight: 298 lb 9.6 oz Body Mass Index: 42.8 BMI Classification: Morbidly Obese Neck circumference: 20 Mouth and throat: narrow oropharynx Hard palate: arched Uvula: normal Uvula visualization: 0% Mallampati Class IV Tongue: enlarged in size with teeth biswas on lateral edges Tonsils: absent bilaterally Neck: normal w/o lymphadenopathy or thyromegaly Heart: regular rate and rhythm Lungs: clear bilaterally Impression and Plan 1. Suspected Obstructive Sleep Apnea-Hypopnea Syndrome, as suggested by a history of loud and irregular snoring, morning headache, frequent awakening during the night, and excessive daytime sleepiness. Narrow oropharynx and obesity are common predisposing factors for obstructive sleep apnea-hypopnea syndrome. I recommend proceeding to polysomnography to confirm the diagnosis and to assess severity. If the patient has significant sleep disordered breathing, a manual CPAP titration study will also be performed to find the optimal treatment pressure. I informed the patient of what the sleep studies involve and after some discussion, obtained agreement to proceed. The pathophysiology of obstructive sleep apnea-hypopnea syndrome was discussed with the patient and health risks of cardiovascular and cerebrovascular disease if not treated. Risks of drowsy driving discussed in detail and patient advised to avoid long distance driving and to car clerk pullman at the first sign of drowsiness. Patient agreed to plan. * Schedule polysomnography * Avoid long distance driving or driving when feeling sleepy. * Avoid alcohol, sedative and muscle relaxant around bedtime. * Attempt to lose weight. * Review instructions provided by trained office staff on how to prepare for the sleep study. * Return for follow-up after sleep study completed. Counseling Topics: Weight loss health impact Plan: PSG Visit Type: In Office Time Spent with Patient (minutes): 43 Provider Statement: I spent 100% of the Face to Face Visit with the patient with greater than 50% spent counseling the patient and coordination of care.
[2023-11-15 16:18] VITALS: BP 136/107; O2SAT 96
== END 2023-11-15 14:53 | disposition home or self-care (01) ==
LOC: SC 14:52
PROVIDERS: ATTEND Nurse Practitioner Family
DX: G47.8 Other sleep disorders (principal); R06.83 Snoring; G47.10 Hypersomnia, unspecified; Z87.891 Personal history of nicotine dependence; R51.9 Headache, unspecified
CPT/HCPCS: 99203; 99212

== ENCOUNTER 2024-01-15 18:04 | Outpatient (CLI) | payer BC, MEDICARE ==
--- NOTE | 2024-01-17 10:09 | Ultrasound Report ---
PROCEDURE: Soft Tissue Head or Neck INDICATIONS: MASS OF NECK, TECHNIQUE: Limited real-time ultrasound was performed of the right neck lump region of interest. COMPARISON: None FINDINGS: Isoechoic linear/oval masslike lesion approximately 3 mm under the skin surface measuring 4.2 x 0.8 x 2.2 cm is seen in the region of interest of the right neck lump. This lesion does not show increased vascularity on color Doppler. IMPRESSION: 4.2 cm lesion of the right neck; most probably a benign lipoma. If strong clinical suspicion remains, MRI with contrast may provide additional diagnostic benefit Reviewed by: Lake Zheng MD on 01/17/2024 10:08 AM PDT Approved by: Lake Zheng MD on 01/17/2024 10:08 AM PDT Station ID: [id number]
--- NOTE | 2024-01-17 10:14 | Ultrasound Report ---
PROCEDURE: Extremity Soft Tissue Limited INDICATIONS: MASS OF HAND TECHNIQUE: Limited real-time ultrasound was performed to evaluate the region of interest of the left palm where patient feels a lump. COMPARISON: None. FINDINGS: A solid hypoechoic lesion measuring 0.6 x 0.3 x 0.7 cm is seen approximately 1 mm below the skin surf fuad in the area of interest of the left palm. This lesion does not show increased vascularity on colo r Doppler. IMPRESSION: Nonspecific hypovascular 6 x 3 x 7 mm lesion located 1 mm below the skin surface of the left palm. Re commend dermatology consult. Reviewed by: Lake Zheng MD on 01/17/2024 10:13 AM PDT Approved by: Lake Zheng MD on 01/17/2024 10:13 AM PDT Station ID: [id number]
== END 2024-01-15 18:05 | disposition home or self-care (01) ==
LOC: DI 18:04
PROVIDERS: ATTEND Registered Nurse
DX: R22.1 Localized swelling, mass and lump, neck (principal); R22.32 Localized swelling, mass and lump, left upper limb

== ENCOUNTER 2024-01-27 12:56 | Outpatient (CLI) | payer BC, MEDICARE | END 2024-01-27 12:57 | disposition home or self-care (01) | LOC: SC 12:56 | PROVIDERS: ATTEND Nurse Practitioner Family | DX: G47.33 Obstructive sleep apnea (adult) (pediatric) (principal); R09.02 Hypoxemia; E66.01 Morbid (severe) obesity due to excess calories; Z68.41 Body mass index [BMI] 40.0-44.9, adult | CPT/HCPCS: 95806 ==

== ENCOUNTER 2024-02-25 13:32 | Outpatient (CLI) | payer BC, MEDICARE ==
--- NOTE | 2024-02-25 13:57 | Sleep Patient Instructions ---
Sleep Center Visit Summary - Patient Visit Information Reason for Visit: Sleep study follow-up - Patient Instructions Additional Instructions: You will be completing a titration sleep study in our sleep lab where you will be sleeping with the CPAP machine on and we will be adjusting your pressures to find your optimal pressure settings. Once we have your results back, we will call you and schedule a follow up to go over the results, you may contact us with any questions or issues as needed. - Clinic Information Contact: [facility] [address] [place] [id number] [email or web address] T: [phone]
--- NOTE | 2024-02-25 14:03 | SLEEP CARE CONSULTATION ---
Information from patient questionnaire entered by Jacqueline Lockwood. I have reviewed and concur with the information entered by Jacqueline Lockwood. This document represents the service I personally performed and the decisions made by , Candy Morrison ARNP. History of Present Illness Service Date and Time: 02/25/2024 1332 Accompanied by: Spouse (Billie) Initial [place] Sleepiness Scale score: 9 (11/15/23) Current [place] Sleepiness Scale score: 16 Additional HPI information: SARA FIERRO returns for follow up and results of the recently performed home sleep study. The sleep study showed moderate obstructive sleep apnea with an average AHI of 28 and ese oxygen saturation of 63%. I explained the pathophysiology behind obstructive sleep apnea. We then spent quite a bit of time discussing different treatment options. For mild obstructive sleep apnea, surgery and oral appliance are alternatives to nasal CPAP therapy but in moderate or severe cases, nasal CPAP is the most effective and reliable treatment. I reviewed the impact of weight changes on sleep apnea and strongly recommended losing weight. After some discussion, the patient opted to go with the nasal CPAP therapy. A manual titration study will be ordered to find optimal pressure with office adjustments. I explained how CPAP machine works and what to expect when using the machine. Patient counseled not drink alcohol less than 4 hours before bedtime as it can increase snoring and apnea. Patient was cautioned about risks of drowsy driving until sleepiness symptoms resolve. Patient denies drowsy driving. Sleep Study - Results Type of Sleep Study: Home sleep study (COMPLETED 01/27/24) Prior sleep studies: No Polysomnography/Home Sleep Study results: Physician Impression: The quality of the study is good. The length of the study is adequate (> 240 minutes). Please also see the tabulated and graphic data. 1. Obstructive Sleep Apnea-Hypopnea (ICD-10 G47.33), moderate, with an AHI of 28.0/hr and ese SaO2 of 63%. During the study, the patient had 53 apneas (53 obstructive, 0 central, 0 mixed) and 164 hypopneas. The longest episode lasted 175.5 seconds. The respiratory events occurred independently of sleep stage and body position (supine AHI was 12.2 and non-supine, 31.41). 2. Hypoxemia (ICD-10 R09.02), moderate, with the lowest oxygen saturation of 63 % and 165.1 minutes with SaO2 under 90%. Baseline oxygen saturation was normal (Average oxygen saturation was 90%). Allergies and Home Medications Known drug allergies: Yes (sulfa) Drug allergies reviewed: Yes Home medication list reviewed: Yes (no changes) Allergy and home medication list: Allergies Sulfa (Sulfonamide Antibiotics) Allergy (Verified 02/20/24 09:15) Unknown Review of Systems Review of systems same as previous: Yes (no changes) Physical Exam Vital signs obtained and entered by: CANDY ESPITIA Blood Pressure: 136/61 Cuff size: long (left arm) Heart Rate: 60 O2 Saturation: 93 Height: 5 ft 10 in Weight: 297 lb 12.8 oz Body Mass Index: 42.7 BMI Classification: Morbidly Obese Impression and Plan 1. Obstructive Sleep Apnea-Hypopnea Syndrome, moderate, with lowest oxygen saturation of 63%. Obviously this is the cause of the patients symptoms of unrefreshed sleep, and excessive daytime sleepiness. Positive pressure therapy could benefit hypertension, cardiac disease (CHD) and gastric reflux. As mentioned above, the patient will be started on nasal autoCPAP therapy. A manual titration study will be completed to find optimal treatment pressure with office adjustments. Compliance guidelines also reviewed. 2. Hypoxemia, moderate, with a ese oxygen saturation of 63% and 165.1 minutes spent under 90%. The baseline oxygen saturation was low normal with an average oxygen saturation of 90%. 3. Obesity, unspecified. Currently patients BMI is 42.7. Obesity increases the risk of apnea, CPAP pressure requirements and overall health risks especially cardiovascular and diabetes. Thus patient is advised to lose weight. * Titration study. * Attempt to lose weight. * Avoid alcohol consumption near bedtime. * Return after titration followup for results review and set up on PAP device. Counseling Topics: Weight loss health impact Plan: Titration study and followup Visit Type: In Office Time Spent with Patient (minutes): 24 Provider Statement: I spent 100% of the Face to Face Visit with the patient with greater than 50% spent counseling the patient and coordination of care.
[2024-02-25 14:18] VITALS: BP 136/61; O2SAT 93
== END 2024-02-25 13:33 | disposition home or self-care (01) ==
LOC: SC 13:32
PROVIDERS: ATTEND Nurse Practitioner Family
DX: G47.33 Obstructive sleep apnea (adult) (pediatric) (principal); R09.02 Hypoxemia; E66.01 Morbid (severe) obesity due to excess calories; Z68.41 Body mass index [BMI] 40.0-44.9, adult
CPT/HCPCS: 99212; 99213